=== PATIENT | female | born 1985 | race Caucasian/White ===

== ENCOUNTER 2022-05-26 10:17 | Emergency (ER) | payer OTHER, SELFPAY ==
[2022-05-26 10:24] VITALS: BP 124/96; PULSE 102; RESP 14; TEMP 35.8; O2SAT 98; BMI 43.6
[2022-05-26 10:47] VITALS: RESP 14; O2SAT 98
--- NOTE | 2022-05-26 10:51 | ED.GENADULT ---
HPI - General Adult General Chief complaint: Unspecified Complaint, Adult Stated complaint: 9 wks , needs US Time Seen by Provider: 05/26/22 10:28 Related Data Home Medications Medication Instructions Recorded Confirmed diphenhydramine HCl 50 mg capsule 50 mg PO Q8H PRN 05/26/22 05/26/22 (Unisom SleepGels) ondansetron HCl 4 mg tablet 4 mg PO Q8-12H PRN 05/26/22 05/26/22 prenat.vits,umair,nzo-bnxl-wokyw 1 tab PO DAILY 05/26/22 05/26/22 pyridoxine (vitamin B6) 25 mg 25 mg PO BID 05/26/22 05/26/22 tablet sertraline 150 mg capsule 150 mg PO DAILY 05/26/22 05/26/22 Allergies Allergy/AdvReac Type Severity Reaction Status Date / Time Penicillins Allergy Mild Hives Verified 05/26/22 10:39 Sulfa (Sulfonamide Allergy Mild Hives Verified 05/26/22 10:39 Antibiotics) [facility] Medical History (Updated 05/26/22 @ 10:50 by Janelle Donnelly RN) No significant past medical history Surgical History (Updated 05/26/22 @ 10:50 by Janelle Donnelly RN) History of appendectomy History of appendectomy History of delivery Social History Smoking Status: Never smoker How often do you have a drink containing alcohol: never AUDIT-C Alcohol total score: 0 Non-prescribed substance use: denies use service: No Exam Const: Vital Signs, click to edit/add: Vital Signs - 24 hr 05/26/22 10:24 05/26/22 10:47 Temperature 96.5 F L Pulse Rate [Pulse Oximeter] 102 H Respiratory Rate 14 Respiratory Rate [ Lower Abdomen] 14 Blood Pressure [Le ft Forearm] 124/96 H Pulse Oximetry 98 Course Vital Signs Vital signs: Initial Vital Signs Temperature 96.5 F L 05/26/22 10:24 Temperature Source Temporal Artery Scan 05/26/22 10:24 Pulse Rate 102 H 05/26/22 10:24 Respiratory Rate 14 05/26/22 10:24 Blood Pressure 124/96 H 05/26/22 10:24 Blood Pressure Mean 105 05/26/22 10:24 Blood Pressure Position Sitting 05/26/22 10:24 Pulse Oximetry 98 05/26/22 10:24 Oxygen Delivery Method 05/26/22 10:24 Vital Signs Temperature 96.5 F L 05/26/22 10:24 Pulse Rate 102 H 05/26/22 10:24 Respiratory Rate 14 05/26/22 10:24 Blood Pressure 124/96 H 05/26/22 10:24 Pulse Oximetry 98 05/26/22 10:24 Temperature 96.5 F L 05/26/22 10:24 Pulse Rate 102 H 05/26/22 10:24 Respiratory Rate 14 05/26/22 10:47 Blood Pressure 124/96 H 05/26/22 10:24 Pulse Oximetry 98 05/26/22 10:24 Discharge Plan Discharge Prescriptions: No Action sertraline 150 mg capsule 150 mg PO DAILY 0RF ondansetron HCl 4 mg tablet 4 mg PO Q8-12H PRN0RF pyridoxine (vitamin B6) 25 mg tablet 25 mg PO BID 0RF prenat.vits,umair,spa-mmyn-nvavj Tablet 1 tab PO DAILY 0RF diphenhydramine HCl [Unisom SleepGels] 50 mg capsule 50 mg PO Q8H PRN0RF Follow Up/Referrals: Clau Mcneill MD [Primary Care Provider] -
--- NOTE | 2022-05-26 11:19 | CRLHL7_ITS ---
For Patients: As a result of the Century Cures Act, medical imaging exams and procedure reports are released immediately into your electronic medical record. You may view this report before your referring provider. If you have questions, please contact your health care provider. Indication: Pain. Technique: Sonography of the gravid uterus was performed. The examination was performed transabdominally and transvaginally. Comparison: There are no prior studies for comparison. Findings: There is a single living intrauterine . heart rate is 176 beats per minute which is normal. The crown rump length measurement is 2.3 centimeters which corresponds to 9 weeks and 0 days. The ultrasound estimated date of delivery is 12/29/2022. The gestational sac size averages 3.4 centimeters. A normal appearing yolk sac is identified. The ovaries appear normal. There is a probable corpus luteum cyst of in the right ovary. The right ovary is difficult to measure due to position. The left ovary measures 2.6 x 1.4 x 1.6 centimeters. The patient indicated an area of pain in the anterior abdominal wall in the region of a scar towards the left. Sonography of this area reveals a small cutaneous to subcutaneous collection measuring 1.9 x 0.5 x 2.1 centimeters. This could be a hematoma, seroma or infected collection. Correlate clinically. Impression: 1. Single live intrauterine gestation of 9 weeks and 0 days. Normal heart rate. No specific visible complication by sonography. 2. The patient indicated an area of pain in the skin the anterior left abdominal wall adjacent to the scar which was scanned. There is a small fluid collection in this area measuring 1.9 x 0.5 x 2.1 centimeters which could represent hematoma, seroma or infected collection. Correlate clinically. Dictated by Deonte Garcia MD @ 05/26/2022 1:03:17 PM (Electronically Signed)
--- NOTE | 2022-05-26 11:35 | ED_ITS ---
HPI - General Adult General Time Seen by Provider: 11:00 Date Seen: 05/26/22 Chief complaint: Unspecified Complaint, Adult Stated complaint: 9 wks , needs US Time Seen by Provider: 05/26/22 10:28 Source: patient History of Present Illness HPI narrative: This 36-year-old female is 9 weeks and comes in reporting some cramping. She does not have any vaginal bleeding or discharge. She also report s some redness and tenderness on the left side of her wound that was done 18 months ago. She does not report any fevers. She did have an ultrasound of this last week with normal results. Related Data Home Medications Medication Instructions Recorded Confirmed diphenhydramine HCl 50 mg capsule 50 mg PO Q8H PRN 05/26/22 05/26/22 (Unisom SleepGels) ondansetron HCl 4 mg tablet 4 mg PO Q8-12H PRN 05/26/22 05/26/22 prenat.vits,umair,ycl-kbgw-pqtla 1 tab PO DAILY 05/26/22 05/26/22 pyridoxine (vitamin B6) 25 mg 25 mg PO BID 05/26/22 05/26/22 tablet sertraline 150 mg capsule 150 mg PO DAILY 05/26/22 05/26/22 Previous Rx's Medication Instructions Recorded cephalexin 500 mg capsule 500 mg PO TID #20 cap 05/26/22 Allergies Allergy/AdvReac Type Severity Reaction Status Date / Time Penicillins Allergy Mild Hives Verified 05/26/22 10:39 Sulfa (Sulfonamide Allergy Mild Hives Verified 05/26/22 10:39 Antibiotics) Review of Systems Status of ROS: Reports: 10 or more systems reviewed and unremarkable except as noted in History and below Narrative: Constitutional: No fevers, no weight gain or loss. Eyes: No discharge. No vision changes. HENT: No congestion, no sore throat, no ear pain. Cardiovascular: No chest pain, no palpitations. Respiratory: No shortness of breath, no wheezes, no cough. Gastrointestinal: No abdominal pain, no vomiting, no diarrhea. Genitourinary: No dysuria, no hematuria. Musculoskeletal: Normal range of motion. Skin: No rashes, no pruritis. Some tenderness with mild redness on the left pole of the old wound. Neurological: No dizziness, weakness, sensory change, speech change. Endo/Heme/Allergies: No bruising or bleeding. No polydipsia. Pysch: no suicidality, no anxiety, no insomnia. All other systems reviewed and are negative. [facility] Medical History Meniscal injury No significant past medical history Surgical History History of appendectomy History of delivery Social History Smoking Status: Never smoker How often do you have a drink containing alcohol: never AUDIT-C Alcohol total score: 0 Non-prescribed substance use: denies use service: No Exam Narrative: Exam Narrative: Constitutional: Well-developed, well-nourished, no acute distress. HEENT: Normocephalic, atraumatic. Neck: Normal range of motion. Nontender. Supple. Heart: Regular. No murmurs. Normal rate. Intact distal pulses. Lungs: Clear to auscultation. No chest discomfort. No wheezes, rhonchi, or rales. Abdomen: Normal bowel sounds. Nontender. No rebound tenderness. Gravid. Genitalia: Deferred. Back: No midline tenderness. Normal range of motion. Extremities: Normal range of motion. No injury. Skin: Intact. No rash. Warm. No pallor. Small area of erythema in the skin fold of the abdomen at the left side of her surgical scar from 18 months ago. No palpable abscess. Neurologic: No altered sensation. No weakness. Alert and oriented. Psychiatric: No suicidality. No anxiety or depression. No insomnia. Nursing notes and vitals signs are reviewed. Const: Vital Signs, click to edit/add: Vital Signs - 24 hr 05/26/22 10:24 05/26/22 10:47 Temperature 96.5 F L Pulse Rate [Pulse Oximeter] 102 H Respiratory Rate 14 Respiratory Rate [ Lower Abdomen] 14 Blood Pressure [Le ft Forearm] 124/96 H Pulse Oximetry 98 Course Vital Signs Vital signs: Initial Vital Signs Temperature 96.5 F L 05/26/22 10:24 Temperature Source Temporal Artery Scan 05/26/22 10:24 Pulse Rate 102 H 05/26/22 10:24 Respiratory Rate 14 05/26/22 10:24 Blood Pressure 124/96 H 05/26/22 10:24 Blood Pressure Mean 105 05/26/22 10:24 Blood Pressure Position Sitting 05/26/22 10:24 Pulse Oximetry 98 05/26/22 10:24 Oxygen Delivery Method 05/26/22 10:24 Vital Signs Temperature 96.5 F L 05/26/22 10:24 Pulse Rate 102 H 05/26/22 10:24 Respiratory Rate 14 05/26/22 10:24 Blood Pressure 124/96 H 05/26/22 10:24 Pulse Oximetry 98 05/26/22 10:24 Temperature 96.5 F L 05/26/22 10:24 Pulse Rate 102 H 05/26/22 10:24 Respiratory Rate 14 05/26/22 10:47 Blood Pressure 124/96 H 05/26/22 10:24 Pulse Oximetry 98 05/26/22 10:24 Medical Decision Making Imaging Data ultrasound pelvis: My impression: This patient comes in reporting some abdominal cramping while she is 9 weeks . She does not have any vaginal bleeding or discharge. Ultrasound of the pelvis shows a normal intrauterine at 9 weeks gestation. Additional images were acquired regarding the tenderness she has in her left abdomen where her was done 18 months ago. There is a small collection of fluid that may be a seroma, hematoma, or abscess. There is some tenderness and erythema in the skin overlying this area but I do not palpate this collection of fluid. This is partly due to abdominal obesity. The patient is reassured with the normal findings of intrauterine . I did decide to prescribe Keflex in the event that this is a subcutaneous abscess in her abdomen. Radiologist's impression: 1. Single live intrauterine gestation of 9 weeks and 0 days. Normal heart rate. No specific visible complication by sonography. 2. The patient indicated an area of pain in the skin the anterior left abdominal wall adjacent to the scar which was scanned. There is a small fluid collection in this area measuring 1.9 x 0.5 x 2.1 centimeters which could represent hematoma, seroma or infected collection. Correlate clinically. Discharge Plan Discharge Clinical Impression: Abscess of skin and subcutaneous tissue, Patient Disposition: Home, Self-Care Condition: Stable Instructions: Abscess (ED) Additional Instructions: at 9 weeks gestation. Subcutaneous abscess. Take medication as prescribed. Follow up with MD or return if worsening symptoms happen. Activity Level: Activity as Tolerated Prescriptions: New cephalexin 500 mg capsule 500 mg PO TID Qty: 20 0RF No Action sertraline 150 mg capsule 150 mg PO DAILY 0RF ondansetron HCl 4 mg tablet 4 mg PO Q8-12H PRN0RF pyridoxine (vitamin B6) 25 mg tablet 25 mg PO BID 0RF prenat.vits,umair,odv-zecc-tizgw Tablet 1 tab PO DAILY 0RF diphenhydramine HCl [Unisom SleepGels] 50 mg capsule 50 mg PO Q8H PRN0RF Follow Up/Referrals: Clau Mcneill MD [Primary Care Provider] - Stand Alone Forms: [id number] Info Instructions
[2022-05-26 14:12] VITALS: BP 117/94; PULSE 86; RESP 14
== END 2022-05-26 14:13 | disposition home or self-care (01) ==
PROVIDERS: Emergency Provider Emergency Medicine Emergency Medical Services; PCP Family Medicine
DX: L02.91 Cutaneous abscess, unspecified (principal); L08.9 Local infection of the skin and subcutaneous tissue, unspecified; Z3A.09 9 weeks gestation of pregnancy
CPT/HCPCS: 76801; 76817; 99283; 99284; 99285

== ENCOUNTER 2022-07-13 06:58 | Day surgery (SDC) | payer OTHER, SELFPAY ==
[2022-07-13] VITALS (10 sets, daily range): BP systolic 114–141; BP diastolic 64–93; PULSE 90–106; RESP 16–20; TEMP 36–36.8; O2SAT 95–99; BMI 44.9
--- NOTE | 2022-07-13 07:15 | ED.GENADULT ---
HPI - General Adult General Time Seen by Provider: 07:15 Date Seen: 07/13/22 Chief complaint: Vaginal Bleeding Stated complaint: miscarried,bleeding Time Seen by Provider: 07/13/22 07:10 Source: patient and family Mode of arrival: ambulatory Limitations: no limitations History of Present Illness HPI narrative: 32-year-old male 001 at approximately 16 weeks who presents today with miscarriage. Patient found out earlier this week that she had a nonviable and was scheduled for D and C this morning. About 530 this morning she felt a ?pop? insert having bleeding. She passed some tissue. She has continued to have bleeding and low abdominal pain. She denies chest pain or shortness of breath. Some lightheadedness. Denies fevers or chills. Related Data Home Medications Medication Instructions Recorded Confirmed diphenhydramine HCl 50 mg capsule 50 mg PO Q8H PRN 05/26/22 07/11/22 (Unisom SleepGels) ondansetron HCl 4 mg tablet 4 mg PO Q8-12H PRN 05/26/22 07/11/22 prenat.vits,umair,xep-myez-mrvwl 1 tab PO DAILY 05/26/22 07/11/22 sertraline 150 mg capsule 150 mg PO DAILY 05/26/22 07/11/22 Previous Rx's Medication Instructions Recorded misoprostol 200 mcg tablet 200 mcg vaginal ONCE #1 tab 07/11/22 Allergies Allergy/AdvReac Type Severity Reaction Status Date / Time Penicillins Allergy Mild Hives Verified 07/11/22 14:13 Sulfa (Sulfonamide Allergy Mild Hives Verified 07/11/22 14:13 Antibiotics) Review of Systems Status of ROS: Reports: 10 or more systems reviewed and unremarkable except as noted in History and below [facility] Medical History (Updated 07/13/22 @ 07:42 by Holger Davies MD) Meniscal injury Miscarriage No significant past medical history Surgical History (Updated 07/12/22 @ 09:03 by Magdy Moore RN) History of appendectomy History of delivery History of repair of anterior cruciate ligament Social History Smoking Status: Never smoker How often do you have a drink containing alcohol: never AUDIT-C Alcohol total score: 0 Non-prescribed substance use: denies use service: No Exam Const: Vital Signs, click to edit/add: Vital Signs - 24 hr 07/13/22 07:10 Temperature 96.9 F L Pulse Rate [Right Pulse Oximeter] 90 Respiratory Rate 20 Blood Pressure [Ri ght Upper Arm] 141/64 H Pulse Oximetry 98 Oxygen Delivery Me thod Room Air Documenting provider has reviewed patient's vital signs: yes Common normals: no apparent distress, oriented x3, alert and well nourished HENMT: Common normals: normocephalic, head/scalp atraumatic, external ears normal and external nose normal Head and scalp: normocephalic and atraumatic Nose: external nose normal External ear: external ears normal Eye: Common normals: PERRL and conjunctivae normal Conjunctiva: conjunctiva(e) normal Pupil: PERRL Neck & C-Spine: Common normals: full ROM, no lymphadenopathy and supple Chest: Common normals: palpation of chest normal Resp: Common normals: normal respiratory effort and clear to auscultation bilaterally Auscultation: clear to auscultation bilaterally Cardio: Common normals: regular rate, regular rhythm and no murmurs Rate: regular rate Rhythm: regular rhythm GI: Common normals: Normal to inspection, nondistended, normoactive bowel sounds present, soft to palpation and non-tender Palpation: soft : Common normals: no CVA tenderness Bladder/kidney exam: no CVA tenderness Back & Pelvis: Common normals: no CVA tenderness and thoracic and lumbar spine normal to inspection Extremity: Common normals: normal to inspection, full ROM and no pedal edema Neuro: Common normals: oriented x3, CN's II-XII intact bilaterally and no focal motor deficits Sensorium/orientation: alert Psych: Common normals: mental status grossly normal Skin: Common normals: no rashes or lesions noted General skin exam: no rashes or lesions noted Course Course Hospital Course: Patient seen and examined, prior records are reviewed. Patient with known nonviable and miscarriage this morning. Continued bleeding. Pelvic ultrasound will be ordered to evaluate for retained products of conception, labs and IV fluids initiated. Reevaluation(s) Reevaluation #1: Discussed ultrasound with client technical professional, patient likely does have retained products of conception. Will contact Ob. Time: 07:41 Reevaluation #2: Patient is vitally stable, hemoglobin is reassuring. Disposition per sleeve tailor, patient will be going to same to surgery for suction curettage. Time: 07:51 Vital Signs Vital signs: Initial Vital Signs Temperature 96.9 F L 07/13/22 07:10 Temperature Source Temporal Artery Scan 07/13/22 07:10 Pulse Rate 90 07/13/22 07:10 Respiratory Rate 20 07/13/22 07:10 Blood Pressure 141/64 H 07/13/22 07:10 Blood Pressure Mean 89 07/13/22 07:10 Blood Pressure Position Sitting 07/13/22 07:10 Pulse Oximetry 98 07/13/22 07:10 Oxygen Delivery Method 07/13/22 07:10 Vital Signs Temperature 96.9 F L 07/13/22 07:10 Pulse Rate 90 07/13/22 07:10 Respiratory Rate 20 07/13/22 07:10 Blood Pressure 141/64 H 07/13/22 07:10 Pulse Oximetry 98 07/13/22 07:10 Oxygen Delivery Method 07/13/22 07:10 Temperature 96.9 F L 07/13/22 07:10 Pulse Rate 90 07/13/22 07:10 Respiratory Rate 20 07/13/22 07:10 Blood Pressure 141/64 H 07/13/22 07:10 Pulse Oximetry 98 07/13/22 07:10 Oxygen Delivery Method 07/13/22 07:10 Medical Decision Making Medical Records Medical records reviewed: Yes I reviewed the patient's medical records Lab Data Lab results reviewed: Yes I reviewed the patient's lab results Labs: Lab Results 07/13/22 Range/Units 07:30 WBC 9.30 (4.50-11.00) K/uL RBC 4.61 (4.00-5.20) m/uL Hgb 12.9 (12.0-16.0) gm/dL Hct 39.6 (33.0-51.0) % MCV 86 (80-100) fL MCH 28 (26-34) pg MCHC 33 (32-36) gm/dL RDW Coeff of Precious 13.2 (11.5-15.5) % Plt Count 235 (140-440) K/uL Neut % (Auto) 75.7 H (42.0-72.0) % Lymph % (Auto) 18.3 L (20-44) % [place] % (Auto) 4.5 (0.0-11.0) % Eos % (Auto) 1.2 (0.0-7.0) % Baso % (Auto) 0.2 (0.0-3.0) % Neut # (Auto) 7.00 (1.7-7.0) K/uL Lymph # (Auto) 1.70 (0.90-2.90) K/uL [place] # (Auto) 0.40 (0.00-0.90) K/UL Eos # (Auto) 0.11 (0.00-0.50) K/uL Baso # (Auto) 0.02 (0.00-0.30) K/uL Abs Immat Gran (auto) 0.01 (0.00-0.30) K/uL Discharge Plan Discharge Clinical Impression: Retained products of conception after miscarriage, Incomplete miscarriage Prescriptions: No Action misoprostol 200 mcg tablet 200 mcg vaginal ONCE Qty: 1 0RF sertraline 150 mg capsule 150 mg PO DAILY ondansetron HCl 4 mg tablet 4 mg PO Q8-12H PRN prenat.vits,umair,dfe-duoz-mduug Tablet 1 tab PO DAILY diphenhydramine HCl [Unisom SleepGels] 50 mg capsule 50 mg PO Q8H PRN Follow Up/Referrals: Clau Mcneill MD [Primary Care Provider] -
--- NOTE | 2022-07-13 07:17 | CRLHL7_ITS ---
For Patients: As a result of the Cures Act, medical imaging exams and procedure reports are released immediately into your electronic medical record. You may view this report before your referring provider. If you have questions, please contact your health care provider. Indication: Vaginal bleeding. Recent miscarriage. Assess for retained products of conception. Technique: Sonography was performed transabdominally. Grayscale and Doppler imaging was obtained Comparison: None Findings: Heterogeneous thickening of the endometrium especially anteriorly. Most of this is vascularized suggesting that this is retained products of conception. Fluid and non vascularized areas within the endometrium likely hemorrhage/clot. Impression: Findings likely related to retained products of conception. Dictated by Deonte Garcia MD @ 07/13/2022 8:06:19 AM (Electronically Signed)
[2022-07-13 07:43] LABS: Basophils Absolute Auto 0.02 K/uL (0.00-0.30); Basophils Percent Auto 0.2 % (0.0-3.0); Eosinophils Absolute Auto 0.11 K/uL (0.00-0.50); Eosinophils Percent Auto 1.2 % (0.0-7.0); Hematocrit 39.6 % (33.0-51.0); Hemoglobin* 12.9 gm/dL (12.0-16.0); Immature Granulocytes Abs Auto 0.01 K/uL (0.00-0.30); Lymphocytes Percent Auto 18.3 % (20-44); Mean Corpuscular HGB Conc 33 gm/dL (32-36); Mean Corpuscular Hemoglobin 28 pg (26-34); Mean Corpuscular Volume 86 fL (80-100); Monocytes Percent Auto 4.5 % (0.0-11.0); Neutrophils Percent Auto 75.7 % (42.0-72.0); Platelet Count* 235 K/uL (140-440); RDW Coefficient of Variation % 13.2 % (11.5-15.5); Red Blood Count 4.61 m/uL (4.00-5.20)
--- OUTSIDE RECORDS SUMMARY | 2022-07-13 07:48 | XMS_ITS | Encounter Summary ---
:1985 Author Organization [place] Address [address] [place] [address] Care Team Providers Name Role Phone No Ref-Primary, Physician Primary Care Provider Ivelisse Melgar PA-C Unavailable [phone] Lashawn Urias MD Unavailable Ivelisse Melgar PA-C Unavailable [phone] Lashawn Urias MD Unavailable Ivelisse Melgar PA-C Unavailable Evy Danielle BENCH PRESS OPERATOR Primary Care Provider Unavailable Reason for Visit Reason Comments Shoulder Injury follow up from walk-in Encounter Details Date Type Department Care Team Description 07/01/2015 Office Visit - [facility] Evy Danielle, Acute shoulder [facility] BENCH PRESS OPERATOR bursitis, right [place] [address] [place] [address] [phone] Social History Tobacco Use Types Packs/Day Years Used Date Never Smoker Smokeless Tobacco: Never Used Alcohol Use Standard Drinks/Week Comments Yes 0 (1 standard drink = 0.6 oz pure alcoho l) socially Sex Assigned at Date Recorded Not on file documented as of this encounter Last Filed Vital Signs Vital Sign Reading Time Taken Comments Blood Pressure - - Pulse - - Temperature - - Respiratory Rate - - Oxygen Saturation - - Inhaled Oxygen Concentration - - Weight 114.3 kg (252 lb) 07/01/2015 3:41 PM CDT Height 165.1 cm (5' 5) 07/01/2015 3:41 PM CDT Body Mass Index 41.93 07/01/2015 3:41 PM CDT documented in this encounter Progress Notes Evy Danielle CNP - 07/01/2015 3:53 PM CDT Assessment/Plan: 1. Acute shoulder bursitis, right Reviewed MRI that was completed in Walk in [facility] on 06/27/2015, reviewed the results and her already given diagnoses Of subacromial-subdeltoid bursitis. She is still having pain. I did reinforce home supportive care -rest, activity to tolerance, ice/heat - 20 min of and 1 hour on Continue with medications as prescribed NSAIDs. She is wearing a sling today and this helps. She is concerns because she has limited range of motion and It is hard for her to complete her daily tasks. I did place a referral for orthopedics discussed possible injection; I did provide orthoquick hours as well. Follow up with ortho. Discussed with patient to follow up if worsening symptoms, questions or concerns Discussed red flags that would warrant urgent evaluation. Patient verbalized understanding. Discussed following up for fasting physical exam 2-4 weeks, Ileana agreed with plan. - Ambulatory referral to Orthopedics MRI RIGHT SHOULDER 06/27/2015 5:52 PM INDICATION: Right shoulder pain. TECHNIQUE: Routine. COMPARISON: None. FINDINGS: ROTATOR CUFF: Rotator cuff muscle bulk is within normal limits. There is no acute intramuscular edema to suggest muscle strain or denervation edema. The rotator cuff is intact without tendinopathy or tear. Specifically, the subscapularis is intact. ACROMIOCLAVICULAR REGION: Type II acromion. Intact coracoacromial ligament. No subacromial spur. Intact coracoclavicular ligaments. There is fluid in the subacromial-subdeltoid bursa. Acromioclavicularjoint is normal. GLENOHUMERAL JOINT: On this nonarthrographic study, the intra-articular portion of the long head biceps tendon is intact. The labrum appears intact on this nonarthrographic study. No focal glenohumeralchondrosis. There is a physiologic amount of fluid in the shoulder joint. BONES AND SOFT TISSUES: No round or oval marrow replacing bone lesion identified within the bones ofthe right shoulder girdle. The visualized chest wall and axilla is unremarkable. IMPRESSION: CONCLUSION: 1. Minimal right subacromial-subdeltoid bursitis. 2. Intact right rotator cuff. Subjective: Patient ID: Ileana Saul is a 29 y.o. female. HPI Comments: 29 y/o Ileana presents today for walk clinic follow up. She was seen twice in walk in clinic for right shoulder pain last visit was on 06/27/2015. States her injury occurred two weeks ago on 06/17/2015 as she was lifting tables and then experiencedshoulder pain the next day. An MRI was performed on 06/27/2015 and showed bursitis. She is taking muscle relaxer and ibuprofen; which are helping but she states she is still in pain. SHe is wearing a sling and states minimal range of motion and difficult to work. Pain is 6/10 pain, aching and throbbing and radiating to collar bone. She presents today to establish care and follow up on shoulder. Denies fever, chills, bowel/bladder changes. Shoulder Injury The following portions of the patient's history were reviewed and updated as appropriate: allergies,current medications, past family history, past medical history, past social history, past surgical history and problem list. Review of Systems Constitutional: Negative. Respiratory: Negative. Cardiovascular: Negative. Musculoskeletal: Shoulder pain- right Skin: Negative. Neurological: Negative. Psychiatric/Behavioral: Negative. Objective: Physical Exam Constitutional: She is oriented to person, place, and time. She appears well- developed and well-nourished. Eyes: Conjunctivae are normal. Cardiovascular: Normal rate and normal heart sounds. No murmur heard. Pulmonary/Chest: Effort normal and breath sounds normal. Abdominal: Soft. Bowel sounds are normal. Musculoskeletal: She exhibits no edema. Left shoulder normal. Right shoulder without any obvious deformity, limited range of motion with abduction. Neurological: She is alert and oriented to person, place, and time. Pulses WNL Psychiatric: She has a normal mood and affect. Filed Vitals: 07/01/15 1541 BP: 120/86 Pulse: 64 Temp: 98.9 ??F (37.2 ??C) documented in this encounter Plan of Treatment Not on filedocumented as of this encounter Visit Diagnoses Diagnosis Acute shoulder bursitis, right documented in this encounter Care Teams Taper/Finisher Relationship Specialty Start Date End Date No Ref-Primary, Physician PCP - General 01/14/16 Ivelisse Melgar, PCP - Assigned PCP 11/0901/27/19 [facility] [id number] [place], [place] [id number] Lashawn Urias MD PCP - Assigned PCP 11/10/17 11/08/[address] [place] [id number] Evy Danielle CNP PCP - General Family Practice 07/01/1501/13 Ivelisse Melgar, Assigned PCP 11/09/18 02/21/19 PA-C [address] [place] [address] Lashawn Urias MD Assigned PCP 02/22/19 11/12/[address] [place] [address] Ivelisse Melgar, Assigned PCP 11/13/20 02/18/21 PA-C [address] [place] [address] documented as of this encounter
--- OUTSIDE RECORDS SUMMARY | 2022-07-13 07:48 | XMS_ITS | Encounter Summary ---
:1985 Author Organization [place] Address [address] [place] [address] Care Team Providers Name Role Phone No Ref-Primary, Physician Primary Care Provider [phone] Ivelisse Melgar PA-C Unavailable Lashawn Urias MD Unavailable Ivelisse Melgar PA-C Unavailable Lashawn Urias MD Unavailable Ivelisse Melgar PA-C Unavailable [phone] Evy Danielle CNP Primary Care Provider Unavailable Encounter Details Date Type Department Care Team Description 06/27/2015 Records - [facility] MRI Marlene Llanos MD Pain in joint, [address] [facility] T shoulder region [place], [place] [address] (Wo rk) Social History Tobacco Use Types Packs/Day Years Used Date Never Smoker Smokeless Tobacco: Never Used Alcohol Use Standard Drinks/Week Comments Yes 0 (1 standard drink = 0.6 oz pure alcoho l) socially Sex Assigned at Date Recorded Not on file documented as of this encounter Plan of Treatment Not on filedocumented as of this encounter Procedures Procedure Name Priority Date/Time Associated Diagnosis Comme nts MR CERVICAL SPINE Routine 06/27/2015 5:24 PM Pain in joint, Re sults for this W/O CONTRAST CDT shoulder region procedure ar e in the results section. documented in this encounter Results MR Cervical Spine w/o Contrast (06/27/2015 5:24 PM CDT) Anatomical Region Laterality Modality Spine, SUBRAD MR NEURO, UMP MR SPINE, RAD MR Other Specimen (Source) Anatomical Location Collection Method / Collectio n Time Received Time / Laterality Volume Impressions 06/27/2015 6:07 PM CDT CONCLUSION: 1. ??No spinal canal or neural foraminal stenosis. 2. ??Normal cord signal. 3. 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 This is incidental. Findings were communicated to Dr. Llanos at 6:06 PM hours 06/27/2015. Narrative 06/27/2015 6:07 PM CDT [facility] MR CERVICAL SPINE WO CONTRAST 06/27/2015 5:24 PM INDICATION: Right shoulder pain and righ t upper extremity paresthesias. TECHNIQUE: Performed without IV contrast . SEDATION: None. COMPARISON: Cervical spine CT 08/19/2010 FINDINGS: Normal vertebral body heights. Slightly straightened cervical lordosis. Normal coronal alignment. The left C1 lateral mass is developmentally small. 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 This is stable. No craniocervical joint effusion or marrow edema. No abnormal co rd signal. The visualized intracranial contents are grossly normal. Incidental maxillary retention cysts. C2-C3: Normal disc height. No herniation . No facet arthropathy. No spinal canal stenosis. No right neural foraminal stenosis. No left neural foraminal stenosis. C3-C4: Normal disc height. No herniation . No facet arthropathy. No spinal canal stenosis. No right neural foraminal stenosis. No left neural foraminal stenosis. C4-C5: Normal disc height. No herniation . No facet arthropathy. No spinal canal stenosis. No right neural foraminal stenosis. No left neural foraminal stenosis. C5-C6: Normal disc height. No herniation . No facet arthropathy. No spinal canal stenosis. No right neural foraminal stenosis. No left neural foraminal stenosis. C6-C7: Normal disc height. No herniation . No facet arthropathy. No spinal canal stenosis. No right neural foraminal stenosis. No left neural foraminal stenosis. C7-T1: Normal disc height. No herniation . No facet arthropathy. No spinal canal stenosis. No right neural foraminal stenosis. No left neural foraminal stenosis. Procedure Note Ascencion Hidalgo J - 04/30/2021 [facility] MR CERVICAL SPINE WO CONTRAST 06/27/2015 5:24 PM INDICATION: Right shoulder pain and righ t upper extremity paresthesias. TECHNIQUE: Performed without IV contrast . SEDATION: None. COMPARISON: Cervical spine CT 08/19/2010 FINDINGS: Normal vertebral body heights. Slightly straightened cervical lordosis. Normal coronal alignment. The left C1 lateral mass is developmentally small. 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 This is stable. No craniocervical joint effusion or marrow edema. No abnormal co rd signal. The visualized intracranial contents are grossly normal. Incidental maxillary retention cysts. C2-C3: Normal disc height. No herniation . No facet arthropathy. No spinal canal stenosis. No right neural foraminal stenosis. No left neural foraminal stenosis. C3-C4: Normal disc height. No herniation . No facet arthropathy. No spinal canal stenosis. No right neural foraminal stenosis. No left neural foraminal stenosis. C4-C5: Normal disc height. No herniation . No facet arthropathy. No spinal canal stenosis. No right neural foraminal stenosis. No left neural foraminal stenosis. C5-C6: Normal disc height. No herniation . No facet arthropathy. No spinal canal stenosis. No right neural foraminal stenosis. No left neural foraminal stenosis. C6-C7: Normal disc height. No herniation . No facet arthropathy. No spinal canal stenosis. No right neural foraminal stenosis. No left neural foraminal stenosis. C7-T1: Normal disc height. No herniation . No facet arthropathy. No spinal canal stenosis. No right neural foraminal stenosis. No left neural foraminal stenosis. IMPRESSION: CONCLUSION: 1. No spinal canal or neural foraminal s tenosis. 2. Normal cord signal. 3. 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 This is incidental. Findings were communicated to Dr. Llanos at 6:06 PM hours 06/27/2015. Darya Llanos MD IMG MRI ORDERABLES documented in this encounter Visit Diagnoses Diagnosis Pain in joint, shoulder region documented in this encounter Care Teams Glass Enamel Mixer Relationship Specialty Start Date End Date No Ref-Primary, Physician PCP - General 01/14/16 Ivelisse Melgar, PCP - Assigned PCP 11/0901/27/19 PA-C [address] [place], [place] [id number] Lashawn Urias MD PCP - Assigned PCP 11/10/17 11/08/[address] [place] [address] [id number] Evy Danielle CNP PCP - General Family Practice 07/01/1501/13 Ivelisse Melgar, Assigned PCP 11/09/18 02/21/19 PA-C [address] [place] [address] Lashawn Urias MD Assigned PCP 02/22/19 11/12/[address] [place] [address] Ivelisse Melgar, Assigned PCP 11/13/20 02/18/21 PA-C [address] [place] [address] documented as of this encounter
--- OUTSIDE RECORDS SUMMARY | 2022-07-13 07:48 | XMS_ITS | Encounter Summary ---
:1985 Author Organization [place] Address [address] [place] [address] Care Team Providers Name Role Phone No Ref-Primary, Physician Primary Care Provider [phone] Encounter Details Date Type Department Care Team Description [facility] Provider, Histor ical Social History Tobacco Use Types Packs/Day Years Used Date Never Smoker Smokeless Tobacco: Never Used Alcohol Use Standard Drinks/Week Comments Yes 0 (1 standard drink = 0.6 oz pure alcoho l) 2 drinks/month Alcohol Habits Answer Date Recorded How often do you have a drink containing alcohol? Not asked How many drinks containing alcohol do you have on a Not aske d typical day when you are drinking? How often do you have six or more drinks on one Not asked occasion? Comment: 2 drinks/month 11/04/2017 Sex Assigned at Date Recorded Not on file documented as of this encounter Plan of Treatment Not on filedocumented as of this encounter Procedures Procedure Name Priority Date/Time Associated Diagnosis Comme nts CT MISC FCIS ORDER Routine 03/15/2009 12:00 AM Re sults for this CDT procedure are i n the results section. CT MISC FCIS ORDER Routine 03/15/2009 12:00 AM Re sults for this CDT procedure are i n the results section. documented in this encounter Results CT Misc Order (03/15/2009 12:00 AM CDT) Anatomical Region Laterality Modality Computed Tomography Specimen (Source) Anatomical Location Collection Method / Collectio n Time Received Time / Laterality Volume Narrative 03/15/2009 12:00 AM CDT See Historical Hospital Medical Record f or documentation Procedure Note Provider, Historical - 04/25/2021Formatt ing of this note might be different from the original. See Historical Hospital Medical Record f or documentation Historical Provider IMG CT ORDERABLES CT Misc Order (03/15/2009 12:00 AM CDT) Anatomical Region Laterality Modality Computed Tomography Specimen (Source) Anatomical Location Collection Method / Collectio n Time Received Time / Laterality Volume Narrative 03/15/2009 12:00 AM CDT See Historical Hospital Medical Record f or documentation Procedure Note Provider, Historical - 04/25/2021Formatt ing of this note might be different from the original. See Historical Hospital Medical Record f or documentation Historical Provider IMG CT ORDERABLES documented in this encounter Visit Diagnoses Not on filedocumented in this encounter Care Teams Audio Visual Technician Relationship Specialty Start Date End Date No Ref-Primary, Physician PCP - General 01/14/16 documented as of this encounter
--- OUTSIDE RECORDS SUMMARY | 2022-07-13 07:48 | XMS_ITS | Encounter Summary ---
:1985 Author Organization [facility] Address [address] [place] [address] Care Team Providers Name Role Phone No Ref-Primary, Physician Primary Care Provider Ivelisse Melgar PA-C Unavailable Lashawn Urias MD Unavailable Ivelisse Melgar PA-C Unavailable [phone] Lashawn Urias MD Unavailable Ivelisse Melgar PA-C Unavailable Evy Danielle CNP Primary Care Provider Unavailable Reason for Visit Reason Comments Shoulder Pain RIGHT shoulder. Poss injury (1 week ago)--seen here at [facility] for the same thing, meds dont help with p riana. Encounter Details Date Type Department Care Team Description 06/27/2015 Office Visit - [facility] Darya Llanos, Acute shoulder bursitis, right; [facility] Jeanmarie ANNA Acute shoulder pain, right [facility] [id number] [place], [place] [address] [address] [place], [place] [phone] (Work) [phone] Social History Tobacco Use Types Packs/Day Years [...] - Inhaled Oxygen Concentration - - Weight 114.8 kg (253 lb) 06/27/2015 2:06 PM CDT Height - - Body Mass Index 42.43 07/18/2012 10:49 AM CDT documented in this encounter Progress Notes Darya Llanos MD - 06/27/2015 2:35 PM CDT Subjective: Ileana Saul is a 29 y.o. female Chief Complaint Patient presents with ??? Shoulder Pain RIGHT shoulder. Poss injury (1 week ago)--seen here at [facility] for the same thing, meds dont help with pain. From 06/21/2015 the plan per London Aquino was -Rest, activity as tolerated according to pain -Apply heat or ice 2- 3 times daily for 15 -20 min -May take Ibuprofen 800 mg three times daily with food for 3 -5 days and then as needed for pain. -Ultram prescribed for break through pain and flexeril prescribed for muscle tightness. Both will cause drowsiness, so no driving, operating machinery or power tools for 6 hours after taking this medication. -Return to the clinic in 7 - 10 days if symptoms are not improving for re- evaluation or if any worsening in strength or paresthesia Patient returns today stating that the initial injury happened 06/17 when she lifted a table or otherpiece of furniture worn. Says she didn't feel anything until the next day. Says she had extreme painbetween 06/18 and 06/21. Since that visit she says she stayed home 06/22-06/24 and worked from home. On 06/25-06/26 she rested the right arm and put ice on it. 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 Says that even walking and driving make the pain worse. Says neither the tramadol or cyclobenzaprine did anything but put her to sleep. Says today at noon took ibuprofen 200 mg - 4 tabs with cyclobenzaprine 3 hours ago and says has no relief of pain. Rates pain at -8/10. Went to her chiropractor on 06/20 and says that the treatment did not help. She had a back adjustment and some vibration treatment. Was told by chiropractor that it could be a bulging disc. Says most of the pain is in her right shoulder, her collarbone, up to her right jaw ans down her arm, and up the right side of back ofneck and head. Says she does not have a regular doctor. Says it hurts to lift her arm more than a little. She is left handed, but she only writes and eats with her left hand, everything else is with her right hand. Most concerned about work and school. Saysit hurts to lift anything, even a glass of water. Admits numbing/tingling feeling in her hand. Review of Systems MS - Neuro - see HPI Allergies Reviewed Medications Reviewed Problem List Reviewed Objective: BP 122/92 Pulse 92 Temp(Src) 98 ??F (36.7 ??C) (Oral) Resp 20 Wt 253 lb (114.76 kg) SpO2 99% Gen- Pt looks anxious, but not in distress Neck-no swelling or deformity - full range of motion Left shoulder-no swelling or deformity, full range of motion Right shoulder-no swelling or deformity; abduction to 60?? full abduction, flexion to 90?? full extension, limited external rotation but full internal rotation Mr Cervical Spine Without Contrast 06/27/2015 [facility] MR CERVICAL SPINE WO CONTRAST 06/27/2015 5:24 PM INDICATION: Right shoulder pain and right upper extremity paresthesias. TECHNIQUE: Performed without IV contrast. SEDATION: None. COMPARISON: Cervical spine CT 08/19/2010 FINDINGS: Normal vertebral body heights. Slightly stra ightened cervical lordosis. Normal coronal alignment. The left C1 lateral mass is developmentally small. 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 This is stable. No craniocervical joint effusionor marrow edema. No abnormal cord signal. The visualized intracranial contents are grossly normal. Incidental maxillary retention cysts. C2-C3: Normal disc height. No herniation. No facet arthropathy. No spinal canal stenosis. No right neural foraminal stenosis. No left neural foraminal stenosis. C3-C4: Normal disc height. No herniation. No facet arthropathy. No spinal canal stenosis. No right neuralforaminal stenosis. No left neural foraminal stenosis. C4-C5: Normal disc height. No herniation. No facet arthropathy. No spinal canal stenosis. No right neural foraminal stenosis. No left neural foraminal stenosis. C5-C6: Normal disc height. No herniation. No facet arthropathy. No spinal canal stenosis. No right neural foraminal stenosis. No left neural foraminal stenosis. C6-C7: Normal disc height.No herniation. No facet arthropathy. No spinal canal stenosis. No right neural foraminal stenosis. No left neural foraminal stenosis. C7-T1: Normal disc height. No herniation. No facet arthropathy. No spinal canal stenosis. No right neural foraminal stenosis. No left neural foraminal stenosis. 06/27/2015 CONCLUSION: 1. No spinal canal or neural foraminal stenosis. 2. Normal cord signal. 3. 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 This is incidental. Findings were communicated to Dr. Llanos at 6:06 PM hours 06/27/2015. Mr Shoulder Without Contrast Right 06/27/2015 MRI RIGHT SHOULDER 06/27/2015 5:52 PM INDICATION: Right shoulder pain. TECHNIQUE: Routine. COMPARISON: None. FINDINGS: ROTATOR CUFF: Rotator cuff muscle bulk is within normal limits. There is noacute intramuscular edema to suggest muscle strain or denervation edema. The rotator cuff is intact without tendinopathy or tear. Specifically, the subscapularis is intact. ACROMIOCLAVICULAR REGION: Type II acromion. Intact coracoacromial ligament. No subacromial spur. Intact coracoclavicular ligaments. There is fluid in the subacromial-subdeltoid bursa. Acromioclavicular joint is normal. GLENOHUMERAL JOINT: On this nonarthrographic study, the intra-articular portion of the long head biceps tendon is intact. The labrum appears intact on this nonarthrographic study. No focal glenohumeral chondrosis.There is a physiologic amount of fluid in the shoulder joint. BONES AND SOFT TISSUES: No round or oval marrow replacing bone lesion identified within the bones of the right shoulder girdle. The visualized chest wall and axilla is unremarkable. 06/27/2015 CONCLUSION: 1. Minimal right subacromial-subdeltoid bursitis. 2. Intact right rotator cuff. Discussed the radiographic finding with patient while she was till at the imaging center in [place] Assessment - Plan 1. Acute shoulder bursitis, right We'll patient was then still at the imaging center we discussed that she did not have any bulging disc and also she had a completely normal rotator cuff. Also discussed conservative treatment for shoulder bursitis. Patient requested a sling to be able to use at work. Patient therefore came back to [facility] walk-in for her sling and will follow-up with primary on 07/01/2015. Also gave patient written patient information from Up-to-Date on bursitis. - Slings 2. Acute shoulder pain, right - MR Shoulder Without Contrast Right; Future - MR Cervical Spine Without Contrast; Future - methocarbamol (ROBAXIN) 750 MG tablet; Take 1-2 tablets (750-1,500 mg total) by mouth 3 (three) times a day as needed (pain or muscle spasm). Dispense: 40 tablet; Refill: 0 Patient Instructions 1. Wait for call from the imaging office about your MRI results before leaving the facility today. 2. Follow up within the next 7 days with one of the primary care doctors, not the [facility]. 3. If pain worsens, go to one of the hospital emergency departments 4. Call clinic with any questions documented in this encounter Plan of Treatment Not on filedocumented as of this encounter Visit Diagnoses Diagnosis Acute shoulder bursitis, right Acute shoulder pain, right documented in this encounter Care Teams Water Pollution Control Inspector Relationship Specialty Start Date End Date No Ref-Primary, Physician PCP - General 01/14/16 Ivelisse Melgar, PCP - Assigned PCP 11/0901/27/19 [address] [address] [place] [address] Lashawn Urias MD PCP - Assigned PCP 11/10/17 11/08/[address] [place] [address] Evy Danielle, TAXATION AGENT PCP - General Family Practice 07/01/1501/13 Ivelisse Melgar, Assigned PCP 11/09/18 02/21/19 [address] [address] [place], [place] [id number] Lashawn Urias MD Assigned PCP 02/22/19 11/12/[address] [place] [address] Ivelisse Melgar, Assigned PCP 11/13/20 02/18/21 [address] [address] [place] [address] documented as of this encounter
--- OUTSIDE RECORDS SUMMARY | 2022-07-13 07:48 | XMS_ITS | Encounter Summary ---
:1985 Author Organization [facility] Address [address] [place] [address] Care Team Providers Name Role Phone No Ref-Primary, Physician Primary Care Provider Ivelisse Melgar PA-C Unavailable Lashawn Urias MD Unavailable Ivelisse Melgar PA-C Unavailable [phone] Lashawn Urias MD Unavailable Ivelisse Melgar PA-C Unavailable Evy Danielle CNP Primary Care Provider Unavailable Encounter Details Date Type Department Care Team Description 07/01/2015 Records - [facility] CONVERSION Provider, Historica l Social History Tobacco Use Types Packs/Day Years Used Date Never Smoker Smokeless Tobacco: Never Used Alcohol Use Standard Drinks/Week Comments Yes 0 (1 standard drink = 0.6 oz pure alcoho l) socially Sex Assigned at Date Recorded Not on file documented as of this encounter Plan of Treatment Not on filedocumented as of this encounter Visit Diagnoses Not on filedocumented in this encounter Care Teams Director Asset Relationship Specialty Start Date End Date No Ref-Primary, Physician PCP - General 01/14/16 Ivelisse Melgar, PCP - Assigned PCP 11/0901/27/19 [address] [address] [place] [address] Lashawn Urias MD PCP - Assigned PCP 11/10/17 11/08/[address] [place] [id number] Evy Danielle CNP PCP - General Family Practice 07/01/1501/13 Ivelisse Melgar, Assigned PCP 11/09/18 02/21/19 [address] [address] [place] [address] Lashawn Urias MD Assigned PCP 02/22/19 11/12/[address] [place] [id number] Ivelisse Melgar, Assigned PCP 11/13/20 02/18/21 [address] [address] [place] [address] documented as of this encounter
--- OUTSIDE RECORDS SUMMARY | 2022-07-13 07:48 | XMS_ITS | Encounter Summary ---
:1985 Author Organization [facility] Address [address] [place] [address] Care Team Providers Name Role Phone No Ref-Primary, Physician Primary Care Provider [phone] Lashawn Urias MD Unavailable Reason for Visit Reason Onset Date Comments Call Back 11/11/2017 call back Encounter Details Date Type Department Care Team Description 11/11/2017 Telephone [facility] Lashawn Urias, Call Back (call back) Clinic [place] [address] [address] [phone] Social History Tobacco Use Types Packs/Day Years [...] on file documented as of this encounter Miscellaneous Notes Telephone Encounter - César Msua - 11/11/2017 3:25 PM CST She has a lot of pain at the area of ulcer and would like to know what to do for the blister. Discussed with Dr Urias, prescriptions pain medications are not recommended. She can take tylenol or ibuprofen for pain and need to remember to stop ibuprofen at least a week before surgery. Blister is a complication of the ulcer and nothing to do for that. Pt advised. LAYING FITTER Telephone Encounter - Lashawn Urias MD - 11/11/2017 2:24 PM CST Unfortunately there is not much else to do at this time. No topical or oral therapies will help expedite healing. Also her condition (sacral decubitus ulcer stage 1) does not yet warrant wound care. This condition simply takes time to heal. She should continue to not place pressure on that area and keep area clean and dry. LAYING FITTER Telephone Encounter - Shira Sofia RN ([place]) - 11/11/2017 2:19 PM PIPELAYING FITTER Reports today a blister formed at sacral region. No open areas but c/o discomfort/pain. Has been laying on stomach and sides and following recommendations from office visit. Patient wondering what elseshe can do or be prescribed? Please advise. LAYING FITTER Telephone Encounter - Rima Vargas - 11/11/2017 2:04 PM CST Reason for Call: Other call back Detailed comments: pt saw dr urias on 11/08/17 for tailbone/back pain and now she developed a blisterand its been very painful, pt said that she has not been sitting on the tail bone but does not know what else to do. Please call pt back ROBERT. Phone Number Patient can be reached at: Home number on file [phone] (home) Best Time: anytime Can we leave a detailed message on this number? YES Call taken on 11/11/2017 at 2:04 PM by RIMA VARGAS LAYING FITTER documented in this encounter Plan of Treatment Not on filedocumented as of this encounter Visit Diagnoses Not on filedocumented in this encounter Care Teams Mailing Machine Assistant Relationship Specialty Start Date End Date No Ref-Primary, Physician PCP - General 01/14/16 Lashawn Urias MD PCP - Assigned PCP 11/10/17 11/08/18 [address] [place] [id number] documented as of this encounter
--- OUTSIDE RECORDS SUMMARY | 2022-07-13 07:48 | XMS_ITS | Clinical Summary ---
:1985 Author Organization [facility] Address [address] [place] [address] Care Team Providers Name Role Phone No Ref-Primary, Physician Primary Care Provider Allergies Active Allergy Reactions Severity Noted Date Comments Hydrocodone Nausea and Vomiting 11/04/2017 Penicillins Rash Low 07/18/2012 Sulfa Drugs Rash Low 07/18/2012 Medications Medication Sig Dispensed Refills Start Date End Date Status NORTRIPTYLINE HCL PO Take 10 mg by 0 Active mouth At Bedtime lidocaine, viscous, Take 15 mLs by 100 mL 1 02/18/2018 Active (XYLOCAINE) 2 % mouth every 4 solutionIndications: hours as needed Throat pain for moderate pain swish and spit as needed; max 8 doses/24 hour period Active Problems Problem Noted Date Morbid obesity Stomach disorder Overview: NOS; uses nortriptyline daily with relie f Immunizations Name Administration Dates Next Due Influenza Vaccine IM > 6 months Valent IIV4 11/04/2017 (Alfuria,Fluzone) TDAP Vaccine (Adacel) 11/04/2017 Family History Medical History Relation Comments Coronary Artery Disease Father s/p CABG later i n life Diabetes Father Diabetes Type 2 Father Heart Disease Father Breast Cancer Maternal Aunt Lung Cancer Maternal Grandfather smoker Breast Cancer Mother Cancer Mother skin cancer Multiple Sclerosis Mother Skin Cancer Mother unknown type Coronary Artery Disease Paternal Uncle 3 uncles; s/p CA BG, PCI, and ME, all later in lif e Multiple Sclerosis Sister 1 Thyroid Disease Sister 2 Colon Cancer No family hx of Coronary Artery Disease Early No family hx of Onset Ovarian Cancer No family hx of Relation Status Comments Father Alive Maternal Aunt Maternal Grandfather Mother Alive Paternal Uncle Sister 1 Sister 2 Social History Tobacco Use Types Packs/Day Years [...] Assigned at Date Recorded Not on file Last Filed Vital Signs Vital Sign Reading Time Taken Comments Blood Pressure 126/88 02/18/2018 12:56 PM CDT Pulse 110 02/18/2018 12:56 PM CDT Temperature 37.1 ??C (98.7 ??F) 02/18/2018 12:56 PM CDT Respiratory Rate 16 02/18/2018 12:56 PM CDT Oxygen Saturation 97% 02/18/2018 12:56 PM CDT Inhaled Oxygen Concentration - - Weight 120.7 kg (266 lb) 02/18/2018 12:56 PM CDT Height 165.1 cm (5' 5) 11/13/2017 11:21 AM COLLECTION ADVISOR Body Mass Index 44.26 11/13/2017 11:21 AM COLLECTION ADVISOR Plan of Treatment Not on file Insurance Payer Benefit Plan / Subscriber ID Effective Dates Phone Addre ss Type Group MEDICA MEDICA CHOICE [id number] 2016-Present [phone] [address] [address] Indemnity 2 [place] [address] Care Teams Customer Retention Representative Relationship Specialty Start Date End Date No Ref-Primary, Physician PCP - General 01/14/16
--- OUTSIDE RECORDS SUMMARY | 2022-07-13 07:48 | XMS_ITS | Encounter Summary ---
:1985 Author Organization [place] Address [facility] [place] [address] Care Team Providers Name Role Phone No Ref-Primary, Physician Primary Care Provider [phone] Reason for Visit Reason Comments Hyperemesis 10-12 times since 0800, does not have nausea meds at home. aprx 6 weeks , has not started pr enatal care. Encounter Details Date Type Department Care Team Description 01/14/2016 [facility] Sarbjit Baker MD Hyperemesis gravidarum [facility] Emergency [facility] [place] [address] [facility] [address] [address] [place] [address] [place] [address] [phone] Social History Tobacco Use Types Packs/Day Years Used Date Never Smoker Smokeless Tobacco: Never Used Alcohol Use Standard Drinks/Week Comments No 0 (1 standard drink = 0.6 oz pure alcoho l) Sex Assigned at Date Recorded Not on file documented as of this encounter Last Filed Vital Signs Vital Sign Reading Time Taken Comments Blood Pressure 137/80 01/14/2016 4:56 PM MECHANICAL DETAILER Pulse 95 01/14/2016 4:56 PM MECHANICAL DETAILER Temperature 36.9 ??C (98.5 ??F) 01/14/2016 4:56 PM MECHANICAL DETAILER Respiratory Rate 20 01/14/2016 4:56 PM MECHANICAL DETAILER Oxygen Saturation 98% 01/14/2016 4:56 PM MECHANICAL DETAILER Inhaled Oxygen Concentration - - Weight 99.8 kg (220 lb) 01/14/2016 4:56 PM MECHANICAL DETAILER Height 165.1 cm (5' 5) 01/14/2016 4:56 PM MECHANICAL DETAILER Body Mass Index 36.61 01/14/2016 4:56 PM MECHANICAL DETAILER documented in this encounter Discharge Instructions Discharge InstructionsSarbjit Baker MD - 01/14/2016 8:29 PM CST Images from the original note were not included. Hyperemesis Of Hyperemesis of is a severe form of morning sickness, where the vomiting is excessive andmay cause dehydration and chemical imbalances in the body. It occurs in about 1% of pregnancies, andis usually worse during the 10- 12th week of . It gets better by the 16th week. Its cause isnot well understood, but may be related to rising hormone levels early in the . It can be aserious threat to mother and fetus if dehydration becomes severe. Therefore, follow the advice belowcarefully. If symptoms are severe and not controlled by home measures, intravenous fluids and admission to the hospital may be needed. Home Care: 1) Activity a. After awakening from sleep, remain in bed for 15 minutes before getting up. 2) Diet a. Eat frequent small meals rather than 3 large meals. b. A diet high in carbohydrates (starches) and fiber is best. Avoid greasy or spicy foods. c. If you are having trouble keeping down solid foods, drink frequent, small amounts of liquids withelectrolytes, such as broth or sports drinks. If nausea and vomiting continue, rest your stomach by waiting 1-2 hours before trying to drink again. d. Keep a log of the foods you eat and how they affect your symptoms. Avoid foods that trigger your symptoms. e. Keep Saltine crackers at the bedside. If you are nauseated upon awakening, eat some crackers or dry toast before getting out of bed. 3) Medicine a. In general, it is best to avoid strong medicines during , especially during the first three months. The effect on the growing baby is not always known and these could cause harm. Your doctor will recommend a prescription medicine only when the symptoms you are having (vomiting and dehydration) are more dangerous to the baby than the small risk of using the medicine. b. Taking Vitamin B6 (pyridoxine), 10-25 mg daily is safe and may be helpful to reduce nausea. c. Check with your doctor before taking any other [id number] or herbal medicines during your . Follow Up: With your doctor within the next few days or as instructed by this facility. Get Prompt Medical Attention if any of the following occur: -- Unable to keep any clear liquids down over a six-hour period -- Worsening weakness, dizziness or fainting occurs -- No weight gain over a two-week period -- Severe constant lower right abdominal pain -- Fever, chills or frequent diarrhea ?? 1991-3463 [employer]. [address] [place] [address]. All rights reserved. This information is not intended as a substitute for professional medical care. Always follow your healthcare professional's instructions. ANICAL DETAILER documented in this encounter Medications at Time of Discharge Medication Sig Dispensed Refills Start Date End Date ondansetron (ZOFRAN ODT) 4 Take 1 tablet (4 10 tablet 0 01/17/2016 MG disintegrating tablet mg) by mouth every 8 hours as needed for nausea metoclopramide (REGLAN) 5 Take 1 tablet (5 30 tablet 0 12/2711/04/2017 MG tablet mg) by mouth 4 times daily as needed NO ACTIVE MEDICATIONS 0 09/2017 documented as of this encounter ED Notes Sarbjit Baker MD - 01/14/2016 5:35 PM CST History Chief Complaint: Hyperemesis SATYA Saul is a 30 year old female who presents to the ED for evaluation of hyperemesis. The patient is approximately 5 to 6 weeks and this is her first . She has been experiencing slight cramping with her . The patient states she has been vomiting for the past 4 days along with nausea. She is not able to keep anything down and has not taken any medication. She states she vomited about 10 to 12 times since 0800 today. The patient reports having a cold that began yesterday causing nasal congestion. She has a scheduled appointment with an OBGYN on Saturday (01/17/16). The patient denies any health problems, sore throat, recent travel, or taking antibiotics recently. Allergies: Penicillins, rash Sulfa drugs, rash Medications: The patient is not currently on any daily medications. Past Medical History: History reviewed. No pertinent past medical history. Past Surgical History: History reviewed. No pertinent past surgical history. Family / Social History: No family history on file. Marital Status: Single [1] Never smoker. Negative for alcohol use. Review of Systems HENT: Positive for congestion. Negative for sore throat. Gastrointestinal: Positive for nausea and vomiting. All other systems reviewed and are negative. Physical Exam First Vitals: BP: 137/80 mmHg Pulse: 95 Temp: 98.5 ??F (36.9 ??C) Resp: 20 Height: 165.1 cm (5' 5) Weight: 99.791 kg (220 lb) SpO2: 98 % Physical Exam GENERAL: well developed, pleasant HEAD: atraumatic EYES: pupils reactive, extraocular muscles intact, conjunctivae normal ENT: mucus membranes moist NECK: trachea midline, normal range of motion RESPIRATORY: no tachypnea, breath sounds clear to auscultation CVS: normal S1/S2, no murmurs, intact distal pulses ABDOMEN: soft, nontender, nondistention MUSCULOSKELETAL: no deformities SKIN: warm and dry, no acute rashes or ulceration NEURO: GCS 15, cranial nerves intact, alert and oriented x3 PSYCH: Mood/affect normal Emergency Department Course Laboratory: CBC: WBC 10.7, HGB 13.9, PLT 257 BMP: BUN 6(L), o/w WNL (Creat 0.60) UA: clear, yellow urine, Urineketon 80, o/w negative Interventions: 1834 NS 2000ml IV 1850 Benadryl 25mg IV Emergency Department Course: Nursing notes and vitals reviewed. I performed an exam of the patient as documented above. Blood drawn. This was sent to the lab for further testing, results above. The patient provided a urine sample here in the emergency department. This was sent for laboratory testing, findings above. 190 I reevaluated the patient and provided an update in regards to her ED course. Findings and plan explained to the Patient. Patient discharged home with instructions regarding supportive care, medications, and reasons to return. The importance of close follow-up was reviewed. New Prescriptions METOCLOPRAMIDE (REGLAN) 5 MG TABLET Take 1 tablet (5 mg) by mouth 4 times daily as needed ONDANSETRON (ZOFRAN ODT) 4 MG DISINTEGRATING TABLET Take 1 tablet (4 mg) by mouth every 8 hours as needed for nausea I personally reviewed the laboratory results with the Patient and answered all related questions prior to discharge. Impression & Plan Medical Decision Making: Ileana Saul is a 30 year old female who is hyperemesis gravidarum. She has a non-tender abdomen. She has been struggling with emesis with this . She has no bleeding. She was given 2 liters of fluids and Benadryl with improvement of symptoms. We discussed outpatient management with her and follow up with her OBGYN this . Diagnosis: ICD-10-CM 1. Hyperemesis gravidarum O21.0 *UA reflex to Microscopic *UA reflex to Microscopic CANCELED: UA with Microscopic Plan: She can try Unisom over the counter and Reglan if that does not work, and finally Zofran, but did give her the caution regarding the remote chance of defects. I, Carrie Ribera, am serving as a scribe on 01/14/2016 at 5:36 PM to personally document services performed by Dr. Baker based on my observations and the provider's statements to me. Carrie Ribera 01/14/2016 EMERGENCY DEPARTMENT Sarbjit Baker MD 01/16/16 0118 ANICAL DETAILER David Garcia RN - 01/14/2016 4:59 PM CST Pt reports abd cramps prior to emesis, denies vaginal bleeding. ANICAL DETAILER documented in this encounter Plan of Treatment Not on filedocumented as of this encounter Procedures Procedure Name Priority Date/Time Associated Comments Diagnosis UA MACROSCOPIC WITH Routine 01/14/2016 8:28 PM Hyperemesis Re sults for this REFLEX TO MICRO MECHANICAL DETAILER gravidarum procedure ar e in the results section. CBC WITH PLATELETS & STAT 01/14/2016 6:30 PM R esults for this DIFFERENTIAL MECHANICAL DETAILER procedure are i n the results section. COMPREHENSIVE STAT 01/14/2016 6:30 PM Results for this METABOLIC PANEL MECHANICAL DETAILER procedure ar e in the results section. documented in this encounter Results (ABNORMAL) *UA reflex to Microscopic (01/14/2016 8:28 PM MECHANICAL DETAILER) [facility] Method Time Signature Color Urine Yellow [facility] Appearance Urine Clear [facility] Glucose Urine Negative NEG mg/dL [facility] Bilirubin Urine Negative NEG [facility] Ketones Urine 80 (A) NEG mg/dL [facility] Specific [place] 1.025 1.003 - [place] Urine 1.[address] [facility] Blood Urine Negative NEG [facility] pH Urine 6.0 5.0 - 7.[address] [place] [address] [facility] Protein Albumin Negative NEG mg/dL [place] Urine [facility] Urobilinogen 0.2 0.2 - 1.0 [place] Urine EU/dL [facility] Nitrite Urine Negative NEG [facility] Leukocyte Negative NEG [place] Esterase Urine [facility] Source Midstream [place] Urine [facility] Specimen Anatomical Collection Method Collection Time Receive d Time (Source) Location / / Volume Laterality 01/14/2016 8:28 PM 6 8:37 MECHANICAL DETAILER PM MECHANICAL DETAILER Sarbjit Baker MD LAB - URINE ORDERABLES Performing Organization Address City/State/ZIP Code Phon e Number [facility] [address], [place] [address] (ABNORMAL) Comprehensive metabolic panel (01/14/2016 6:30 PM MECHANICAL DETAILER) [facility] Method Time Signature Sodium 137 133 - 144 [place] mmol/L [facility] Potassium 3.6 3.4 - 5.3 [place] mmol/L [facility] Chloride 104 94 - 109 [place] mmol/L [facility] Carbon Dioxide 23 20 - 32 [place] mmol/L [facility] Anion Gap 10 3 - 14 [place] mmol/L [facility] Glucose 91 70 - 99 [place] mg/dL [facility] Urea Nitrogen 6 (L) 7 - 30 [place] mg/dL [facility] Creatinine 0.60 0.52 - [place] 1.04 [facility] mg/dL HOSPITAL GFR Estimate >90 >60 [place] Non GFR Calc mL/min/1. [place] [address] [facility] GFR Estimate If >90 >60 [place] Black GFR Calc mL/min/1. [place] [address]m2 [facility] Calcium 8.7 8.5 - [facility] 10.1 [facility] mg/dL [facility] Bilirubin Total 0.7 0.2 - 1.3 [place] mg/dL [facility] Albumin 3.7 3.4 - 5.0 [place] g/dL [facility] Protein Total 7.8 6.8 - 8.8 [place] g/dL [facility] Alkaline 63 40 - 150 [place] Phosphatase U/L [facility] ALT 27 0 - 50 [place] U/L [facility] AST 14 0 - 45 [place] U/L [facility] Specimen Anatomical Collection Method Collection Time Receive d Time (Source) Location / / Volume Laterality Blood specimen 01/14/2016 6:30 PM 016 6:42 (specimen) MECHANICAL DETAILER PM MECHANICAL DETAILER Sarbjit Baker MD LAB - BLOOD ORDERABLES Performing Organization Address City/State/ZIP Code Phon e Number M [facility] [address] [phone] [facility] [address] [address], [place] [phone] (ABNORMAL) CBC with platelets differential (01/14/2016 6:30 PM MECHANICAL DETAILER) [facility] Method Time Signature WBC 10.7 4.0 - [place] 11.0 [facility] 10e9/L [facility] RBC Count 4.84 3.8 - 5.2 [place] 10e12/L [facility] Hemoglobin 13.9 11.7 - [place] 15.7 g/dL [facility] Hematocrit 40.7 35.0 - [place] 47.0 % [facility] MCV 84 78 - 100 [facility] MCH 28.7 26.5 - [place] 33.0 pg [facility] MCHC 34.2 31.5 - [place] 36.5 g/dL [facility] RDW 13.8 10.0 - [place] 15.0 % [facility] Platelet Count 257 150 - 450 [place] 10e9/L [facility] Diff Method Automated [facility] % Neutrophils 82.3 % [facility] % Lymphocytes 11.9 % [facility] % Monocytes 4.5 % [facility] % Eosinophils 0.9 % [facility] % Basophils 0.1 % [facility] % Immature 0.3 % [place] Granulocytes [facility] Nucleated RBCs 0 0 /100 [facility] Absolute 8.8 (H) 1.6 - 8.3 [place] Neutrophil 10e9/L [facility] Absolute 1.3 0.8 - 5.3 [place] Lymphocytes 10e9/L [facility] Absolute 0.5 0.0 - 1.3 [place] Monocytes 10e9/L [facility] Absolute 0.1 0.0 - 0.7 [place] Eosinophils 10e9/L [facility] Absolute 0.0 0.0 - 0.2 [place] Basophils 10e9/L [facility] Abs Immature 0.0 0 - 0.4 [place] Granulocytes 10e9/L [facility] Absolute 0.0 [place] Nucleated RBC [facility] Specimen Anatomical Collection Method Collection Time Receive d Time (Source) Location / / Volume Laterality Blood specimen 01/14/2016 6:30 PM 016 6:42 (specimen) MECHANICAL DETAILER PM MECHANICAL DETAILER Sarbjit Baker MD LAB - BLOOD ORDERABLES Performing Organization Address City/State/ZIP Code Phon e Number [facility] [address] [phone] [facility] [address] [address], [facility] [phone] documented in this encounter Visit Diagnoses Diagnosis Hyperemesis gravidarum Mild hyperemesis gravidarum, unspecified as to episode of care documented in this encounter Administered Medications Inactive Administered Medications - up to 3 most recent administrations Medication Order MAR Action Action Date Dose Rate Site 0.9% sodium chloride BOLUS New Bag 01/14/2016 6:34 PM MECHANICAL DETAILER 2,000 mLs Intravenous, 2,000 mL, ONCE, On 01/14/16 at 1759, For 1 dose diphenhydrAMINE (BENADRYL) injection 25 mg Given 01/14/2016 6:50 PM MECHANICAL DETAILER 25 mg 25 mg, Intravenous, ONCE, On 01/14/16 at 1759, For 1 dose documented in this encounter Active and Recently Administered Medications Times are shown in MECHANICAL DETAILER. Scheduled Medication Order 01/12/2016 01/13/2016 01/14/2016 0.9% sodium chloride BOLUS (COMPLETED) 1834 (New Bag - Provider: Maxine Martines RN)2020 (Stopped - Provider: Hever De RN) Intravenous, 2,000 mL, ONCE, 01/14/16 at 1759, For 1 dose diphenhydrAMINE (BENADRYL) injection 25 mg (COMPLETED) 1850 (Given - Provider: Maxine Martines RN) 25 mg, Intravenous, ONCE, 01/14/16 at 1759, For 1 dose documented in this encounter Care Teams Care Center Manager Relationship Specialty Start Date End Date No Ref-Primary, Physician PCP - General 01/14/16 documented as of this encounter
--- OUTSIDE RECORDS SUMMARY | 2022-07-13 07:48 | XMS_ITS | Encounter Summary ---
:1985 Author Organization [facility] Address [address] [place] [address] Care Team Providers Name Role Phone No Ref-Primary, Physician Primary Care Provider [phone] Lashawn Urias MD Unavailable Reason for Visit Reason Comments Pre-Op Exam 11/20/17 L ACL repair Fx - Encounter Details Date Type Department Care Team Description 11/04/2017 Office Visit [facility] Lashawn Urias, Preo perative examination (Primary Dx); [facility] [place] Rupture of anterior cruciate ligament of left knee, subsequent encounter; [facility] [address] disorder; [address] Need for vaccination; [place] [address] Need for prophylactic vaccination and in oculation against influenza [id number] [phone] Social History Tobacco Use Types Packs/Day Years [...] Sign Reading Time Taken Comments Blood Pressure 124/80 11/04/2017 9:05 AM ORAL SURGERY TECHNICIAN Pulse 89 11/04/2017 9:05 AM ORAL SURGERY TECHNICIAN Temperature 36.6 ??C (97.8 ??F) 11/04/2017 9:05 AM ORAL SURGERY TECHNICIAN Respiratory Rate - - Oxygen Saturation 98% 11/04/2017 9:05 AM ORAL SURGERY TECHNICIAN Inhaled Oxygen - - Concentration Weight 119.7 kg (263 lb 11/04/2017 9:05 AM Weighed with L knee 12.8 oz) ORAL SURGERY TECHNICIAN brace Height 165.1 cm (5' 5) 11/04/2017 9:05 AM Measured wit h L knee ORAL SURGERY TECHNICIAN brace. Unable to fully stretch th e leg Body Mass Index 43.9 11/04/2017 9:05 AM ORAL SURGERY TECHNICIAN documented in this encounter Patient Instructions Patient InstructionsLashawn Urias MD - 11/04/2017 9:00 AM CST MRSA swab today. Tetanus booster and flu shot today. --- Labs downstairs. --- We will fax preop to surgery center. SURGERY TECHNICIAN documented in this encounter Progress Notes César Musa - 11/04/2017 11:25 AM CST Injectable Influenza Immunization Documentation 1. Is the person to be vaccinated sick today? No 2. Does the person to be vaccinated have an allergy to a component of the vaccine? No Egg Allergy Algorithm Link 3. Has the person to be vaccinated ever had a serious reaction to influenza vaccine in the past? No 4. Has the person to be vaccinated ever had Guillain-Bhakta?? syndrome? No Form completed by César WATERMAN SURGERY TECHNICIAN Lashawn Urias MD - 11/04/2017 9:00 AM CST SUBJECTIVE: HPI: Ileana Saul is a pleasant 32 year old female who presents for preoperative evaluation. Surgeon: Brian Date: 11/20/17 Location: [facility], Surgery: left ACL repair (intermediate risk) Indication: left ACL tear Past Medical History: Diagnosis Date ??? Morbid obesity (H) ??? Stomach disorder NOS; uses nortriptyline daily with relief Personal or family history of excessive or prolonged bleeding? No Personal or family history of blood clots? No History of snoring/Sleep Apnea? No History of blood transfusions? No Clinical Predictors of Increased Risk: none Past Surgical History: Procedure Laterality Date ??? LAPAROSCOPIC APPENDECTOMY 2007 Artificial assistive devices, such as pacemakers, artificial cardiac valves, or artificial joints? No Allergies Allergen Reactions ??? Hydrocodone Vomiting ??? Penicillins rash ??? Sulfa Drugs Rash Personal or family history of allergy to anesthesia? Patient with post-op N&V Allergy to local or topical analgesics? No Allergy to latex? No Allergy to adhesives/skin preparations (chlorhexadine)? No Current Outpatient Prescriptions Medication Sig ??? traMADol (ULTRAM) 50 MG tablet Take 50 mg by mouth as needed ??? NORTRIPTYLINE HCL PO Take 10 mg by mouth At Bedtime Over the counter medications? No Vitamin Supplements? No Herbal Supplements? No Family History Problem Relation Age of Onset ??? Breast Cancer Mother 50 ??? Skin Cancer Mother unknown type ??? Multiple Sclerosis Mother ??? Type 2 Diabetes Father ??? Coronary Artery Disease Father s/p CABG later in life ??? Multiple Sclerosis Sister ??? Lung Cancer Maternal Grandfather smoker ??? Coronary Artery Disease Paternal Uncle 3 uncles; s/p CABG, PCI, and HI, all later in life ??? Breast Cancer Maternal Aunt ??? Coronary Artery Disease Early Onset No family hx of ??? Ovarian Cancer No family hx of ??? Colon Cancer No family hx of Occupational History ??? Data/[employer] Social History Main Topics ??? Smoking status: Never Smoker ??? Smokeless tobacco: Never Used ??? Alcohol use Yes Comment: 2 drinks/month ??? Drug use: No ??? Sexual activity: Yes Partners: Male Social History Narrative In a relationship. No kids. Active, but no formal exercise. Functional capacity: Can do heavy work around the house such as scrubbing floors or lifting or moving heavy furniture (4-10 METs) ROS: Constitutional: denies unintentional weight loss or gain; denies fevers, chills, or sweats Cardiovascular: denies chest pain, palpitations, or edema Respiratory: denies cough, wheezing, shortness of breath, or dyspnea on exertion Gastrointestinal: denies nausea, vomiting, constipation, diarrhea, or abdominal pain Genitourinary: denies urinary frequency, urgency, dysuria, or hematuria Integumentary: denies rash or pruritus Musculoskeletal: denies back pain, muscle pain, joint pain, or joint swelling Neurologic: denies focal weakness, numbness, or tingling Hematologic/Immunologic: denies history of anemia or blood transfusions Endocrine: denies heat or cold intolerance; denies polyuria, polydipsia Psychiatric: denies depression or anxiety OBJECTIVE: BP 124/80 (BP Location: Left arm, Patient Position: Chair, Cuff Size: Adult Large) Pulse 89 Temp97.8 ??F (36.6 ??C) (Oral) Ht 5' 5 (1.651 m) Wt 263 lb 12.8 oz (119.7 kg) LMP 10/27/2017 (Exact Date) SpO2 98% ? No BMI 43.9 kg/m2 Constitutional: well-appearing Eyes: normal conjunctivae and lids; pupils equal, round, and reactive to light Ears, Nose, Mouth, and Throat: normal ears and nose; tympanic membranes visualized and normal; normal lips, teeth, and gums; no oropharyngeal lesions or ulcers Neck: supple and symmetric; no lymphadenopathy; no thyromegaly or masses Respiratory: normal respiratory effort; clear to auscultation bilaterally Cardiovascular: regular rate and rhythm; pedal pulses palpable; no edema Gastrointestinal: soft, non-tender, non-distended, and bowel sounds present; no organomegaly or masses Musculoskeletal: left leg in stabilizer Psych: normal judgment and insight; normal mood and affect; recent and remote memory intact; oriented to time, place, and person ASSESSMENT/PLAN: Ileana Saul is a pleasant 32 year old female who presents for a preoperative evaluation. She is at low clinical risk for an intermediate risk procedure. (Z01.818) Preoperative examination (primary encounter diagnosis) (S83.512D) Rupture of anterior cruciate ligament of left knee, subsequent encounter (K31.9) Stomach disorder Plan: - *NOTE* post-op N&V. - CBC, CMP, and MRSA swab today. - may CONTINUE nortriptyline up to and on the day of surgery. (Z23) Need for vaccination (Z23) Need for prophylactic vaccination and inoculation against influenza Comment: unrelated to surgery. Plan: TDAP and flu shots given today. RECOMMEND PROCEEDING WITH SURGERY: YES. Thank you for referring Ileana Saul to me for consultation and allowing me to participate in her care. The instructions on the AVS were discussed and explained to the patient. Patient expressed understanding of instructions. (Chart documentation was completed, in part, with [employer] voice-recognition software. Even though reviewed, some grammatical, spelling, and word errors may remain.) Lashawn Urias MD [address] [address] T: [phone], F: [phone] SURGERY TECHNICIAN documented in this encounter Nursing Notes César Musa - 11/04/2017 9:00 AM CST Chief Complaint Patient presents with ??? Pre-Op Exam 11/20/17 L ACL repair Fx - [phone] Initial BP 124/80 (BP Location: Left arm, Patient Position: Chair, Cuff Size: Adult Large) Pulse 89 Temp 97.8 ??F (36.6 ??C) (Oral) Ht 5' 5 (1.651 m) Wt 263 lb 12.8 oz (119.7 kg) LMP 10/27/2017 (Exact Date) SpO2 98% ? No BMI 43.9 kg/m2 Estimated body mass index is 43.9 kg/(m^2) as calculated from the following: Height as of this encounter: 5' 5 (1.651 m). Weight as of this encounter: 263 lb 12.8 oz (119.7 kg). Medication Reconciliation: melanie Lindsey MA SURGERY TECHNICIAN César Musa - 11/04/2017 9:00 AM CST Screening Questionnaire for Adult Immunization Are you sick today? No Do you have allergies to medications, food, a vaccine component or latex? No Have you ever had a serious reaction after receiving a vaccination? No Do you have a long-term health problem with heart disease, lung disease, asthma, kidney disease, metabolic disease (e.g. diabetes), anemia, or other blood disorder? No Do you have cancer, leukemia, HIV/AIDS, or any other immune system problem? No In the past 3 months, have you taken medications that affect your immune system, such as prednisone,other steroids, or anticancer drugs; drugs for the treatment of rheumatoid arthritis, Crohn???s disease, or psoriasis; or have you had radiation treatments? No Have you had a seizure, or a brain or other nervous system problem? No During the past year, have you received a transfusion of blood or blood products, or been given immune (gamma) globulin or antiviral drug? No For women: Are you or is there a chance you could become during the next month? No Have you received any vaccinations in the past 4 weeks? No Immunization questionnaire answers were all negative. Per orders of Dr. Urias, injection of Tdap given by César Musa. Patient instructed to remain in clinic for 15 minutes afterwards, and to report any adverse reaction to me immediately. Screening performed by César Musa on 11/04/2017 at 9:43 AM. SURGERY TECHNICIAN documented in this encounter Plan of Treatment Not on filedocumented as of this encounter Procedures Procedure Name Priority Date/Time Associated Diagnosis Comme nts COMPREHENSIVE Routine 11/04/2017 9:54 Preoperative Results for this METABOLIC PANEL AM ORAL SURGERY TECHNICIAN examination procedure are in Rupture of anterior the resu lts cruciate ligament of section . left knee, subsequent encounter CBC WITH PLATELETS Routine 11/04/2017 9:54 Preoperative Result s for this AM ORAL SURGERY TECHNICIAN examination procedure are in Rupture of anterior the resu lts cruciate ligament of section . left knee, subsequent encounter MRSA MSSA PCR, NASAL Routine 11/04/2017 9:45 Preoperative Resu lts for this SWAB AM ORAL SURGERY TECHNICIAN examination procedure are in Rupture of anterior the resu lts cruciate ligament of section . left knee, subsequent encounter documented in this encounter Results Comprehensive metabolic panel (11/04/2017 9:54 AM ORAL SURGERY TECHNICIAN) athologist Signature Sodium 141 133 - 144 11/04/2017 [facility] mmol/L 10:57 AM ORAL SURGERY TECHNICIAN [place] [facility] Potassium 4.5 3.4 - 5.3 11/04/2017 [facility] mmol/L 10:57 AM ORAL SURGERY TECHNICIAN [place] Chloride 108 94 - 109 11/04/2017 [facility] mmol/L 10:57 AM ORAL SURGERY TECHNICIAN [place] Carbon Dioxide 27 20 - 32 11/04/2017 [facility] mmol/L 10:57 AM [facility] Anion Gap 6 3 - 14 11/04/2017 [facility] mmol/L 10:57 AM [facility] [place] Glucose 93 70 - 99 11/04/2017 [facility] mg/dL 10:57 AM [facility] Comment: Fasting specimen Urea Nitrogen 13 7 - 30 mg/dL 11/04/2017 10:57 [facility] ORAL SURGERY TECHNICIAN [place] Creatinine 0.69 0.52 - 1.04 mg/dL 11/04/2017 10:57 AM [facility] TECHNICIAN [place] GFR Estimate >90 >60 mL/min/1.7m2 11/04/2017 10:57 AM [facility] ORAL SURGERY TECHNICIAN [place] Comment: Non GFR Calc GFR Estimate If >90 >60 mL/min/1.7m2 11/04/2017 10:57 AM [facility] Black ORAL SURGERY TECHNICIAN [place] Comment: GFR Calc Calcium 9.0 8.5 - 10.1 11/04/2017 10:57 AM [facility] mg/dL ORAL SURGERY TECHNICIAN [place] [facility] Bilirubin Total 0.4 0.2 - 1.3 mg/dL 11/04/2017 10:57 A M [facility] ORAL SURGERY TECHNICIAN [place] Albumin 3.8 3.4 - 5.0 g/dL 11/04/2017 10:57 AM [facility] ORAL SURGERY TECHNICIAN [place] Protein Total 7.8 6.8 - 8.8 g/dL 11/04/2017 10:57 AM [facility] ORAL SURGERY TECHNICIAN [place] Alkaline Phosphatase 70 40 - 150 U/L 11/04/2017 10:57 AM [facility] ORAL SURGERY TECHNICIAN [place] ALT 20 0 - 50 U/L 11/04/2017 10:57 AM [facility] ORAL SURGERY TECHNICIAN [place] AST 14 0 - 45 U/L 11/04/2017 10:57 AM [facility] Specimen Anatomical Collection Method Collection Time Receive d Time (Source) Location / / Volume Laterality Blood specimen 11/04/2017 9:54 AM 017 9:59 (specimen) ORAL SURGERY TECHNICIAN AM ORAL SURGERY TECHNICIAN Lashawn Urias MD LAB - BLOOD ORDERABLES Performing Organization Address City/[facility]/ZIP Code Phon e Number [facility] [address] [place] [address] CBC with platelets (11/04/2017 9:54 AM ORAL SURGERY TECHNICIAN) athologist Signature WBC 7.5 4.0 - 11.0 11/04/2017 [facility] 10e9/L 10:24 AM [facility] RBC Count 4.80 3.8 - 5.2 11/04/2017 [facility] 10e12/L 10:24 AM [facility] Hemoglobin 13.8 11.7 - 11/04/2017 [facility] 15.7 g/dL 10:24 AM [facility] Hematocrit 43.4 35.0 - 11/04/2017 [facility] 47.0 % 10:24 AM [facility] MCV 90 78 - 100 11/04/2017 [facility] fl 10:24 AM [facility] MCH 28.8 26.5 - 11/04/2017 [facility] 33.0 pg 10:24 AM [facility] MCHC 31.8 31.5 - 11/04/2017 [facility] 36.5 g/dL 10:24 AM [facility] RDW 12.8 10.0 - 11/04/2017 [facility] 15.0 % 10:24 AM [facility] Platelet Count 287 150 - 450 11/04/2017 [facility] 10e9/L 10:24 AM [facility] Specimen Anatomical Collection Method Collection Time Receive d Time (Source) Location / / Volume Laterality Blood specimen 11/04/2017 9:54 AM 017 9:59 (specimen) ORAL SURGERY TECHNICIAN AM ORAL SURGERY TECHNICIAN Lashawn Urias MD LAB - BLOOD ORDERABLES Performing Organization Address City/[facility] Code Phon e Number [facility] [address] [place] [phone] Methicillin Resistant Staph Aureus PCR (11/04/2017 9:45 AM ORAL SURGERY TECHNICIAN) [facility] gist Method Time Signature Specimen Nares 11/04/2017 [place] Description 9:25 AM [facility] Methicillin Negative NEG^Negat 11/04/2017 [facility] Resist/Sens S. yahaira 6:40 PM [facility] aureus PCR [facility] Comment: MRSA Negative: SA Positive MRSA target DNA not detected, presumed n egative for MRSA colonization or the number of bacteria present may be below the limit of detection. Staphylococcus aureus target DNA detecte d, presumed positive for SA colonization. A positive test does not necessarily ind icate the presence of viable organisms. ??It is, however, presumptive for the presence of SA. ??This result does not preclude MRSA nasal colonizatio n. FDA approved assay performed using [employer] GeneXpert(R) real-time PCR. Specimen (Source) Anatomical Collection Method Collection Time Re ceived Time Location / / Volume Laterality Nasal structure 11/04/2017 9:45 7 9:54 (body structure) AM ORAL SURGERY TECHNICIAN AM ORAL SURGERY TECHNICIAN Lashawn Urias MD LAB - MICRO GENERAL ORDERABL ES Performing Organization Address City/State/ZIP Code Phon e Number [facility] [address] [place] [address] [facility] [address] [place] [phone] documented in this encounter Visit Diagnoses Diagnosis Preoperative examination - Primary Preoperative examination, unspecified Rupture of anterior cruciate ligament of left knee, subsequent encounter Stomach disorder Unspecified disorder of stomach and duod enum Need for vaccination Need for prophylactic vaccination and in oculation against unspecified single disease Need for prophylactic vaccination and in oculation against influenza documented in this encounter Care Teams Director Cloud Transformation Relationship Specialty Start Date End Date No Ref-Primary, Physician PCP - General 01/14/16 Lashawn Urias MD PCP - Assigned PCP 11/10/17 11/08/[address] [place] [id number] documented as of this encounter
--- OUTSIDE RECORDS SUMMARY | 2022-07-13 07:48 | XMS_ITS | Encounter Summary ---
:1985 Author Organization [facility] Address [address] [place] [address] Care Team Providers Name Role Phone No Ref-Primary, Physician Primary Care Provider Ivelisse Melgar PA-C Unavailable Lashawn Urias MD Unavailable Ivelisse Melgar PA-C Unavailable [phone] Lashawn Urias MD Unavailable Ivelisse Melgar PA-C Unavailable [phone] Evy Danielle CNP Primary Care Provider Unavailable Encounter Details Date Type Department Care Team Description 06/27/2015 [facility] - [facility] Marlene Llanos MD Pain in joint, [address] [facility] S shoulder region [place], [place] [address] (Wo rk) Social History [...] Priority Date/Time Associated Diagnosis Comme nts MR SHOULDER RIGHT Routine 06/27/2015 5:52 PM Pain in joint, Re sults for this W/O CONTRAST CDT shoulder region procedure ar e in the results section. documented in this encounter Results MR Shoulder Right w/o Contrast (06/27/2015 5:52 PM CDT) Anatomical Region Laterality Modality Right Shoulder, SUBRAD MR MSK, UMP MR MSK, RAD MR Other Specimen (Source) Anatomical Location Collection Method / Collectio n Time Received Time / Laterality Volume Impressions 06/27/2015 7:08 PM CDT CONCLUSION: 1. ??Minimal right subacromial-subdeltoi d bursitis. 2. ??Intact right rotator cuff. Narrative 06/27/2015 7:08 PM CDT MRI RIGHT SHOULDER 06/27/2015 5:52 PM INDICATION: Right shoulder pain. TECHNIQUE: Routine. COMPARISON: None. FINDINGS: ROTATOR CUFF: Rotator cuff muscle bulk i s within normal limits. There is no acute intramuscular edema to suggest muscle strain or denervation edema. The rotator cuff is intact without tendinopathy or tear. Specifically, the subscapularis is intact. ACROMIOCLAVICULAR REGION: Type II acromi on. Intact coracoacromial ligament. No subacromial spur. Intact coracoclavicular ligaments. There is fluid in the subacromial-subdeltoid bursa. Acromioclavicular joint is normal. GLENOHUMERAL JOINT: On this nonarthrogra phic study, the intra-articular portion of the long head biceps tendon is intact. The labrum appears intact on this nonarthrographic study. No focal glenohumeral chondrosis. There is a physiologic amoun t of fluid in the shoulder joint. BONES AND SOFT TISSUES: No round or oval marrow replacing bone lesion identified within the bones of the right shoulder girdle. The visualized chest wall and axilla is unremarkable. Procedure Note Ti Weinstein MD - 04/30/2021 MRI RIGHT SHOULDER 06/27/2015 5:52 PM INDICATION: Right shoulder pain. TECHNIQUE: Routine. COMPARISON: None. FINDINGS: ROTATOR CUFF: Rotator cuff muscle bulk i s within normal limits. There is no acute intramuscular edema to suggest muscle strain or denervation edema. The rotator cuff is intact without tendinopathy or tear. Specifically, the subscapularis is intact. ACROMIOCLAVICULAR REGION: Type II acromi on. Intact coracoacromial ligament. No subacromial spur. Intact coracoclavicular ligaments. There is fluid in the subacromial-subdeltoid bursa. Acromioclavicular joint is normal. GLENOHUMERAL JOINT: On this nonarthrogra phic study, the intra-articular portion of the long head biceps tendon is intact. The labrum appears intact on this nonarthrographic study. No focal glenohumeral chondrosis. There is a physiologic amount of fluid in the shoulder joint. BONES AND SOFT TISSUES: No round or oval marrow replacing bone lesion identified within the bones of the right shoulder girdle. The visualized chest wall and axilla is unremarkable. IMPRESSION: CONCLUSION: 1. Minimal right subacromial-subdeltoid bursitis. 2. Intact right rotator cuff. Darya Llanos MD IMG MRI ORDERABLES documented in this encounter Visit Diagnoses Diagnosis Pain in joint, shoulder region documented in this encounter Care Teams Stone Carriage Operator Relationship Specialty Start Date End Date No Ref-Primary, Physician PCP - General 01/14/16 Ivelisse Melgar, PCP - Assigned PCP 11/0901/27/19 PA-C [address] [place], [place] [id number] Lashawn Urias MD PCP - Assigned PCP 11/10/17 11/08/[address] [place] [id number] Evy Danielle, RAJI PCP - General Family Practice 07/01/1501/13 Ivelisse Melgar, Assigned PCP 11/09/18 02/21/19 PA-C [id number] [place] [address] Lashawn Urias MD Assigned PCP 02/22/19 11/12/20 [address] [place] [id number] Ivelisse Melgar, Assigned PCP 11/13/20 02/18/21 [facility] [id number] [place] [address] documented as of this encounter
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
--- OUTSIDE RECORDS SUMMARY | 2022-07-13 07:48 | XMS_ITS | Encounter Summary ---
:1985 Author Organization [place] Address [address] [place] [address] Care Team Providers Name Role Phone No Ref-Primary, Physician Primary Care Provider [phone] Encounter Details Date Type Department Care Team Description 04/21/2021 Records - [facility] HE CONVERSION Provider, Histor ical Social History [...] Priority Date/Time Associated Diagnosis Comme nts XR ELBOW LEFT 2 Routine 12/11/2004 12:00 AM Resul ts for this VIEWS TEAM FACILITATOR procedure are i n the results section. documented in this encounter Results XR Elbow Left 2 Views (12/11/2004 12:00 AM TEAM FACILITATOR) Anatomical Region Laterality Modality Elbow, Left Elbow Left Other Specimen (Source) Anatomical Location Collection Method / Collectio n Time Received Time / Laterality Volume Narrative 12/11/2004 12:00 AM TEAM FACILITATOR See Historical Hospital Medical Record f or documentation Procedure Note Provider, Historical - 04/21/2021Formatt ing of this note might be different from the original. See Historical Hospital Medical Record f or documentation Historical Provider IMG DIAGNOSTIC IMAGING ORDER ESHA documented in this encounter Visit Diagnoses Not on filedocumented in this encounter Care Teams Cte Teacher Relationship Specialty Start Date End Date No Ref-Primary, Physician PCP - General 01/14/16 documented as of this encounter
--- OUTSIDE RECORDS SUMMARY | 2022-07-13 07:48 | XMS_ITS | Encounter Summary ---
:1985 Author Organization [place] Address [address] [place] [address] Care Team Providers Name Role Phone No Ref-Primary, Physician Primary Care Provider [phone] Lashawn Urias MD Unavailable Reason for Visit Reason Comments Blister x 1 day. Blister in sacral u lcer area broke out. Encounter Details Date Type Department Care Team Description 11/13/[address] [facility] Lashawn Urias, Absc ess, sacrum (H) Clinic Mad[facility]ha ANNA (Primary Dx) [facility] [address] [address] [phone] Social History Tobacco Use Types Packs/Day Years [...] Sign Reading Time Taken Comments Blood Pressure 120/66 11/13/2017 11:21 AM SEWING MACHINE MECHANIC Pulse 129 11/13/2017 11:21 AM SEWING MACHINE MECHANIC Temperature 37.7 ??C (99.8 ??F) 11/13/2017 11:21 AM SEWING MACHINE MECHANIC Respiratory Rate - - Oxygen Saturation 96% 11/13/2017 11:21 AM SEWING MACHINE MECHANIC Inhaled Oxygen Concentration - - Weight 116.6 kg (257 lb) 11/13/2017 11:21 AM SEWING MACHINE MECHANIC Height 165.1 cm (5' 5) 11/13/2017 11:21 AM SEWING MACHINE MECHANIC Body Mass Index 42.77 11/13/2017 11:21 AM SEWING MACHINE MECHANIC documented in this encounter Patient Instructions Patient InstructionsLashawn Urias MD - 11/13/2017 12:00 PM CST Clindamycin 4x/day x 7 days. --- Ultram 1-2 tabs as needed for pain. --- Warm water bath 3x/day for 10-15 minutes. NG MACHINE MECHANIC documented in this encounter Progress Notes Lashawn Urias MD - 11/13/2017 12:00 PM CST SUBJECTIVE: HPI: Ileana Saul is a pleasant 32 year old female who presents with a painful blister: Patient suffered a left ACL tear 10/06/2017. Was seen for preoperative assessment 11/04/2017. Surgery scheduled for 11/20/[address] Torres ([facility]). Patient was seen again 11/08/2017 complaining of sacral soreness. A sacral decubitus ulcer, stage I,was noted at that time. Patient admitted to spending most of her day on the couch since her ACL tearin mid September. This combined with her morbid obesity likely contributed to her sacral decubitus ulcer formation. Patient was encouraged to stay as active as possible and avoid prolonged sitting especially in soft seating. Patient was also encouraged to keep that area clean and dry. Patient contacted our clinic 11/11/2017 complaining of worsening sacral pain and blister formation. Tylenol and ibuprofen (until 1 week before her surgery) and cool compresses recommended. Patient presents to clinic today with continued worsening sacral pain and purulent and bloody drainage from reported blister. No fevers or chills. --- Allergies significant for allergies to penicillin and sulfa. --- The medication, allergy, and problem lists have been reviewed and updated as appropriate. OBJECTIVE: BP 120/66 (BP Location: Left arm, Patient Position: Chair, Cuff Size: Adult Large) Pulse 129 Temp 99.8 ??F (37.7 ??C) (Oral) Ht 5' 5 (1.651 m) Wt 257 lb (116.6 kg) LMP 10/27/2017 (Exact Date) SpO2 96% BMI 42.77 kg/m2 Constitutional: well-appearing Integumentary: 2 area of erythema with underlying fluctuance noted on sacrum/upper part of buttocks- just to the right of midline; purulent and bloody discharge with gentle palpation of area; exquisite tenderness to palpation PROCEDURE: Discussed I&D procedure with patient. Potential risks, including bleeding, infection, pain, incomplete treatment, and recurrence were discussed. Patient verbally agreed to proceed with procedure. Area cleaned with alcohol swabs. Lidocaine 1% with epi injected subcutaneously around wound. Area prepped with povidone-iodine swabs. 15 blade used to make 0.5 cm incision over peak of fluctuance. Pressure applied to area. Moderate amount of bloody and purulent matter expressed. Area cleaned with saline. Gauze Secured with with paper tape applied to wound. Blood loss <5cc. Patient tolerated procedure well. Procedure time: 5 minutes. ASSESSMENT/PLAN: (M46.28) Abscess, sacrum (H) (primary encounter diagnosis) Comment: - likely complication of sacral decubitus ulcer. - s/p successful I&D. Plan: - sitz bath 3 times a day. - clindamycin 300 mg 4x/day ?? 7 days. - Ultram as needed for pain. - if pain worsens, patient to contact MD. - if significant bleeding/purulent discharge, fevers, or chills develop, patient to contact MD. From my perspective patient may still proceed with surgery next week. The instructions on the AVS were discussed and explained to the patient. Patient expressed understanding of instructions. (Chart documentation was completed, in part, with [employer] voice-recognition software. Even though reviewed, some grammatical, spelling, and word errors may remain.) Lashawn Urias MD [place] [address] [address] T: [phone], F: [phone] NG MACHINE MECHANIC documented in this encounter Nursing Notes César Musa - 11/13/2017 12:00 PM CST Chief Complaint Patient presents with ??? Blister x 1 day. Blister in sacral ulcer area broke out. Initial BP 120/66 (BP Location: Left arm, Patient Position: Chair, Cuff Size: Adult Large) Pulse 129 Temp 99.8 ??F (37.7 ??C) (Oral) Ht 5' 5 (1.651 m) Wt 257 lb (116.6 kg) LMP 10/27/2017 (Exact Date) SpO2 96% BMI 42.77 kg/m2 Estimated body mass index is 42.77 kg/(m^2) as calculated fromthe following: Height as of this encounter: 5' 5 (1.651 m). Weight as of this encounter: 257 lb (116.6 kg). Medication Reconciliation: complete César WATERMAN NG MACHINE MECHANIC documented in this encounter Plan of Treatment Not on filedocumented as of this encounter Procedures Procedure Name Priority Date/Time Associated Diagnosis Comme nts HC DRAIN SKIN ABSCESS Routine 11/13/2017 1:42 PM SEWING MACHINE MECHANIC Abscess, sacrum (H) SIMPLE/SINGLE documented in this encounter Visit Diagnoses Diagnosis Abscess, sacrum (H) - Primary Acute osteomyelitis, other specified sit e documented in this encounter Care Teams Help Desk Operator Relationship Specialty Start Date End Date No Ref-Primary, Physician PCP - General 01/14/16 Lashawn Urias MD PCP - Assigned PCP 11/10/17 11/08/[address] [place] [address] documented as of this encounter
--- OUTSIDE RECORDS SUMMARY | 2022-07-13 07:48 | XMS_ITS | Encounter Summary ---
:1985 Author Organization [place] Address [address] [place] [address] Care Team Providers Name Role Phone No Ref-Primary, Physician Primary Care Provider [phone] Lashawn Urias MD Unavailable Reason for Visit Reason Onset Date Comments Patient Request 11/13/2017 tailbone blister pop out Encounter Details Date Type Department Care Team Description 11/13/2017 Telephone [facility] Lashawn Urias Teagan ent Request Clinic Madiha ANNA (tailbone blister pop [place] [address] out) [address] [address] [phone] Social History Tobacco Use Types Packs/Day Years [...] this encounter Miscellaneous Notes Telephone Encounter - Shira Sofia ([place] kwan - 11/13/2017 9:38 AM TOOL DESIGN DRAFTER Patient reports blister at sacral region opened last night, draining serosanguinous and purulent fluid. Draining quite a bit since opening. Denies fever, dizziness, or light-headedness. Informed Dr. Urias who stated patient could be worked into schedule this afternoon. Scheduled patient at 1200. Patient stated understanding. Advised patient to call back if symptoms worsen, change, or new symptoms develop. DESIGN DRAFTER Telephone Encounter - Pat Weldon RN - 11/13/2017 9:32 AM CST Left message for patient to call back. Please see 11/08/17 OV for notes regarding plan. Dr. Urias stated that sacral ulcer could take 2-3 weeks to heal. DESIGN DRAFTER Telephone Encounter - Danny Gates - 11/13/2017 9:23 AM CST Reason for call: Patient reporting a symptom Symptom or request: blister on tail bone Duration (how long have symptoms been present): 1 week Have you been treated for this before? Yes Additional comments: Blister pop out, not sure what to do with it. Patient requesting to get call back. Phone Number patient can be reached at: Home number on file [phone] (home) Best Time: Anytime Can we leave a detailed message on this number: YES Call taken on 11/13/2017 at 9:23 AM by DANNY GATES DESIGN DRAFTER documented in this encounter Plan of Treatment Not on filedocumented as of this encounter Visit Diagnoses Not on filedocumented in this encounter Care Teams Commissions Specialist Relationship Specialty Start Date End Date No Ref-Primary, Physician PCP - General 01/14/16 Lashawn Urias MD PCP - Assigned PCP 11/10/17 11/08/18 [address] [place] [address] documented as of this encounter
--- OUTSIDE RECORDS SUMMARY | 2022-07-13 07:48 | XMS_ITS | Encounter Summary ---
:1985 Author Organization [place] Address [address] [place] [address] Care Team Providers Name Role Phone No Ref-Primary, Physician Primary Care Provider [phone] Encounter Details Date Type Department Care Team Description 04/26/2021 Records - [facility] HE CONVERSION Provider, Histor ical Social History [...] Priority Date/Time Associated Diagnosis Comme nts CT HEAD W/O Routine 08/19/2010 12:00 AM Results for this CONTRAST CDT procedure are i n the results section. CT CERVICAL SPINE Routine 08/19/2010 12:00 AM Res ults for this W/O CONTRAST CDT procedure are i n the results section. XR KNEE RIGHT 1/2 Routine 08/19/2010 12:00 AM Res ults for this VIEWS CDT procedure are i n the results section. XR CERVICAL SPINE Routine 08/19/2010 12:00 AM Res ults for this 2/3 VIEWS CDT procedure are i n the results section. XR CHEST 1 VIEW Routine 08/19/2010 12:00 AM Resul ts for this CDT procedure are i n the results section. documented in this encounter Results XR Cervical Spine 2/3 Views (08/19/2010 12:00 AM CDT) Anatomical Region Laterality Modality Spine Other Specimen (Source) Anatomical Location Collection Method / Collectio n Time Received Time / Laterality Volume Narrative 08/19/2010 12:00 AM CDT See Historical Hospital Medical Record f or documentation Procedure Note Provider, Historical - 04/26/2021Formatt ing of this note might be different from the original. See Historical Hospital Medical Record f or documentation Historical Provider IMG DIAGNOSTIC IMAGING ORDER ESHA CT Cervical Spine w/o Contrast (08/19/2010 12:00 AM CDT) Anatomical Region Laterality Modality Spine, SUBRAD CT NEURO, SUBRAD CT NEURO, UMP CT SPINE, Computed Tomography RAD CT Specimen (Source) Anatomical Location Collection Method / Collectio n Time Received Time / Laterality Volume Narrative 08/19/2010 12:00 AM CDT See Historical Hospital Medical Record f or documentation Procedure Note Provider, Historical - 04/26/2021Formatt ing of this note might be different from the original. See Historical Hospital Medical Record f or documentation Historical Provider IMG CT ORDERABLES XR Chest 1 View (08/19/2010 12:00 AM CDT) Anatomical Region Laterality Modality Chest Digital Radiography Specimen (Source) Anatomical Location Collection Method / Collectio n Time Received Time / Laterality Volume Narrative 08/19/2010 12:00 AM CDT See Historical Hospital Medical Record f or documentation Procedure Note Provider, Historical - 04/26/2021Formatt ing of this note might be different from the original. See Historical Hospital Medical Record f or documentation Historical Provider IMG DIAGNOSTIC IMAGING ORDER ESHA CT Head w/o Contrast (08/19/2010 12:00 AM CDT) Anatomical Region Laterality Modality Head, SUBRAD CT NEURO, SUBRAD CT NEURO, UMP CT NEURO, Computed Tomography RAD CT Specimen (Source) Anatomical Location Collection Method / Collectio n Time Received Time / Laterality Volume Narrative 08/19/2010 12:00 AM CDT See Historical Hospital Medical Record f or documentation Procedure Note Provider, Historical - 04/26/2021Formatt ing of this note might be different from the original. See Historical Hospital Medical Record f or documentation Historical Provider IMG CT ORDERABLES XR Knee Right 1/2 Views (08/19/2010 12:00 AM CDT) Anatomical Region Laterality Modality Leg, Thigh, Knee Right Other Specimen (Source) Anatomical Location Collection Method / Collectio n Time Received Time / Laterality Volume Narrative 08/19/2010 12:00 AM CDT See Historical Hospital Medical Record f or documentation Procedure Note Provider, Historical - 04/26/2021Formatt ing of this note might be different from the original. See Historical Hospital Medical Record f or documentation Historical Provider IMG DIAGNOSTIC IMAGING ORDER ESHA documented in this encounter Visit Diagnoses Not on filedocumented in this encounter Care Teams Play Reader Relationship Specialty Start Date End Date No Ref-Primary, Physician PCP - General 01/14/16 documented as of this encounter
--- OUTSIDE RECORDS SUMMARY | 2022-07-13 07:48 | XMS_ITS | Encounter Summary ---
:1985 Author Organization [place] Address [address] [place] [address] Care Team Providers Name Role Phone No Ref-Primary, Physician Primary Care Provider [phone] Encounter Details Date Type Department Care Team Description 04/25/2021 Records - [facility] CONVERSION Provider, [...] Name Priority Date/Time Associated Diagnosis Comme nts CTA CHEST WITH Routine 01/16/2009 12:00 AM Result s for this CONTRAST MANUAL LATHE OPERATOR procedure are i n the results section. documented in this encounter Results CTA Chest with Contrast (01/16/2009 12:00 AM MANUAL LATHE OPERATOR) Anatomical Region Laterality Modality Chest, SUBRAD IR PROCEDURE, UMP CT CTA, RAD CT Computed Tomography Specimen (Source) Anatomical Location Collection Method / Collectio n Time Received Time / Laterality Volume Narrative 01/16/2009 12:00 AM MANUAL LATHE OPERATOR See Historical Hospital Medical Record f or documentation Procedure Note Provider, Historical - 04/25/2021Formatt ing of this note might be different from the original. See Historical Hospital Medical Record f or documentation Historical Provider IMG CT ORDERABLES documented in this encounter Visit Diagnoses Not on filedocumented in this encounter Care Teams Warehouse Order Filler Relationship Specialty Start Date End Date No Ref-Primary, Physician PCP - General 01/14/16 documented as of this encounter
--- OUTSIDE RECORDS SUMMARY | 2022-07-13 07:48 | XMS_ITS | Encounter Summary ---
:1985 Author Organization [place] Address [address] [place] [address] Care Team Providers Name Role Phone No Ref-Primary, Physician Primary Care Provider [phone] Reason for Visit Reason Comments Derm Problem X 2 days. Possible cut in th e skin/soreness around the tailbone area due to prolonged sitting. Encounter Details Date Type Department Care Team Description 11/08/2017 Office Visit [facility] Lashawn Urias Decu bitus ulcer of [facility] sacral region, stage [place] [address] [facility] (Primary Dx) [address] [address] [phone] Social History Tobacco Use Types Packs/Day Years [...] Sign Reading Time Taken Comments Blood Pressure 120/80 11/08/2017 2:57 PM CAREER TECHNICAL SUPERVISOR Pulse 106 11/08/2017 2:57 PM CAREER TECHNICAL SUPERVISOR Temperature 36.9 ??C (98.5 ??F) 11/08/2017 2:57 PM CAREER TECHNICAL SUPERVISOR Respiratory Rate - - Oxygen Saturation 97% 11/08/2017 2:57 PM CAREER TECHNICAL SUPERVISOR Inhaled Oxygen Concentration - - Weight 119.3 kg (263 lb) 11/08/2017 2:57 PM CAREER TECHNICAL SUPERVISOR Height 165.1 cm (5' 5) 11/08/2017 2:57 PM CAREER TECHNICAL SUPERVISOR Body Mass Index 43.77 11/08/2017 2:57 PM CAREER TECHNICAL SUPERVISOR documented in this encounter Patient Instructions Patient InstructionsLashawn Urias MD - 11/08/2017 2:45 PM CST Pressure sore on sacrum. Recommend not sitting in couch or soft seating. If you have to sit in above, please sit on a pillow (so you don't sink in) and place a pillow or donut cushion (can get at [facility]) behind you, so you not applying pressure to sacral area. No creams or lotions to area - just keep clean and dry. Avoiding direct pressure should result in healing in the next several weeks. ER TECHNICAL SUPERVISOR documented in this encounter Progress Notes Lashawn Urias MD - 11/08/2017 2:45 PM CST SUBJECTIVE: HPI: Ileana Saul is a pleasant 32 year old female who presents with a sore on her bottom: - present for last week or so - painful to touch and with sitting - no bleeding or discharge - no swelling or warmth - no fevers or chills PMH significant for MO and recent ACL tear (10/06/17) Patient has been sitting on her couch most of the day, every day, since the injury. The medication, allergy, and problem lists have been reviewed and updated as appropriate. OBJECTIVE: BP 120/80 (BP Location: Left arm, Patient Position: Chair, Cuff Size: Adult Large) Pulse 106 Temp 98.5 ??F (36.9 ??C) (Oral) Ht 5' 5 (1.651 m) Wt 263 lb (119.3 kg) LMP 10/27/2017 (Exact Date) SpO2 97% BMI 43.77 kg/m2 Constitutional: well-appearing Integumentary: diffuse area of non-blanchable redness between upper buttocks, on sacrum, with midline superficial, vertical skin opening/cracking; no ulceration; area is tender to palpation; no warmth,fluctuance, induration, bleeding, or discharge ASSESSMENT/PLAN: (L89.151) Decubitus ulcer of sacral region, stage 1 (primary encounter diagnosis) Comment: due to prolonged, continuous couch sitting for last month due to ACL tear; MO likely contributing. Plan: - STOP sitting in couch or soft seating. - sit only in a supportive chair. - try to keep as active as possible in spite of her injury. - use a donut cushion around involved area when seated to take any/all pressure off that area. - keep area clean and dry - no topical Rx recommended at this time. - anticipate that healing will take 2-3 weeks. The instructions on the AVS were discussed and explained to the patient. Patient expressed understanding of instructions. (Chart documentation was completed, in part, with [employer] voice-recognition software. Even though reviewed, some grammatical, spelling, and word errors may remain.) Lashawn Urias MD [address] [address] T: [phone], F: [phone] ER TECHNICAL SUPERVISOR documented in this encounter Nursing Notes César Musa - 11/08/2017 2:45 PM CST Chief Complaint Patient presents with ??? Derm Problem X 2 days. Possible cut in the skin/soreness around the tailbone area due to prolonged sitting. Initial BP 120/80 (BP Location: Left arm, Patient Position: Chair, Cuff Size: Adult Large) Pulse 106 Temp 98.5 ??F (36.9 ??C) (Oral) Ht 5' 5 (1.651 m) Wt 263 lb (119.3 kg) LMP 10/27/2017 (Exact Date) SpO2 97% BMI 43.77 kg/m2 Estimated body mass index is 43.77 kg/(m^2) as calculated fromthe following: Height as of this encounter: 5' 5 (1.651 m). Weight as of this encounter: 263 lb (119.3 kg). Medication Reconciliation: melanie Lindsey MA ER TECHNICAL SUPERVISOR documented in this encounter Plan of Treatment Not on filedocumented as of this encounter Visit Diagnoses Diagnosis Decubitus ulcer of sacral region, stage 1 - Primary Pressure ulcer, lower back documented in this encounter Care Teams Delicatessen Department Manager Relationship Specialty Start Date End Date No Ref-Primary, Physician PCP - General 01/14/16 documented as of this encounter
--- OUTSIDE RECORDS SUMMARY | 2022-07-13 07:48 | XMS_ITS | Encounter Summary ---
:1985 Author Organization [place] Address [address] [place] [address] Care Team Providers Name Role Phone No Ref-Primary, Physician Primary Care Provider [phone] Reason for Visit Reason Comments Nausea & Vomiting Encounter Details Date Type Department Care Team Description 10/08/2017 Emergency [facility] Joel Braden and vomiting, [facility] Emergency MD [place] intractability of Dept [facility] vomiting not specified, [address] [place] unspecified vomiting [place], [place] [address] [place] [id number] [place] [address] [place], [place] [id number] (Wo rk) Social History Tobacco Use Types Packs/Day Years Used Date Never Smoker Smokeless Tobacco: Never Used Alcohol Use Standard Drinks/Week Comments No 0 (1 standard drink = 0.6 oz pure alcoho l) Sex Assigned at Date Recorded Not on file documented as of this encounter Last Filed Vital Signs Vital Sign Reading Time Taken Comments Blood Pressure 145/91 10/08/2017 1:52 PM MANAGER OF PRODUCT Pulse 101 10/08/2017 12:13 PM MANAGER OF PRODUCT Temperature 36.4 ??C (97.5 ??F) 10/08/2017 12:13 PM MANAGER OF PRODUCT Respiratory Rate 18 10/08/2017 12:13 PM MANAGER OF PRODUCT Oxygen Saturation 99% 10/08/2017 1:52 PM MANAGER OF PRODUCT Inhaled Oxygen Concentration - - Weight - - Height - - Body Mass Index - - documented in this encounter Discharge Instructions AttachmentsThe following attachments cannot be sent through Care Everywhere. VOMITING (6Y-ADULT) (AMHARIC)documented in this encounter Medications at Time of Discharge Medication Sig Dispensed Refills Start Date End Date NORTRIPTYLINE HCL PO Take 10 mg by mouth 0 At Bedtime ondansetron (ZOFRAN ODT) 4 Take 1 tablet (4 10 tablet 0 10/11/2017 MG ODT tab mg) by mouth every 8 hours as needed for nausea HYDROcodone-acetaminophen Take 1-2 tablets by 15 tablet 0 1 12/06/2016 11/04/2017 (NORCO) 5-325 MG per mouth every 4 hours tablet as needed for moderate to severe pain metoclopramide (REGLAN) 5 Take 1 tablet (5 30 tablet 0 12/2711/04/2017 MG tablet mg) by mouth 4 times daily as needed NO ACTIVE MEDICATIONS 0 09/2017 documented as of this encounter ED Notes Shreyas Orlando RN - 10/08/2017 1:54 PM CST Tolerating PO challenge. Still feeling 'queezy', but better and keeping crackers and water down. GER OF PRODUCT Shreyas Orlando RN - 10/08/2017 1:18 PM CST Initiated PO challenge with water and crackers. GER OF PRODUCT Mallika Barcenas RN - 10/08/2017 12:12 PM CST Put on hydrocodone for knee pain yesterday. Patient reports the hydrocodone is making her vomit. Last dose this morning. GER OF PRODUCT Joel Braden MD - 10/08/2017 12:09 PM CST History Chief Complaint: Nausea & Vomiting SATYA Saul is a 32 year old female who presents for evaluation of nausea and vomiting. The patient was seen in the ED 2 days ago for left knee pain after a slip and fall. X-ray was negative for fracture and based on exam, patient suffered probable medial collateral ligament sprain, though exam waslimited by pain. The patient was placed in a knee immobilizer and given Juli[place]own for pain. She reports she took the Hydrocodone yesterday and started to feel nauseous, but continued to take it every 4 hours as prescribed for pain control. The patient took it again this morning and started vomiting. She had multiple episodes of nonbloody emesis at home, prompting her to return to the ED. On arrival, the p atient notes nausea but denies any abdominal pain, fever, diarrhea, or other concerns. She still haspain in her left knee. She has an appointment with orthopedics on Saturday in 3 days. The patient doesnot want any other pain medications. Allergies: Penicillins Sulfa Medications: NORTRIPTYLINE HCL PO HYDROcodone-acetaminophen (NORCO) 5-325 MG per tablet Past Medical History: The patient does not have any past pertinent medical history. Past Surgical History: Appendectomy Family History: History reviewed. No pertinent family history. Social History: Smoking status: No Alcohol use: No Presents to the ED with her significant other Marital Status: Single [1] Review of Systems Constitutional: Negative for fever. Gastrointestinal: Positive for nausea and vomiting. Negative for abdominal pain and diarrhea. Musculoskeletal: Positive for arthralgias. All other systems reviewed and are negative. Physical Exam Patient Vitals for the past 24 hrs: BP Temp Temp src Pulse Heart Rate Resp SpO2 10/08/17 1352 (!) 145/91 - - - 86 - 99 % 10/08/17 1213 (!) 133/93 97.5 ??F (36.4 ??C) Temporal 101 - 18 100 % Physical Exam Constitutional: Appears well-developed and well-nourished. Alert. Conversant. Non toxic. HENT: Head: Atraumatic. Nose: Nose normal. Mouth/Throat: Oral mucosa is clear and moist. no trismus. Pharynx normal. Tonsils symmetric. No tonsillar enlargement, erythema, or exudate. Eyes: Conjunctivae normal. EOM normal. Pupils equal, round, and reactive to light. No scleral icterus. Neck: Normal range of motion. Neck supple. No tracheal deviation present. Cardiovascular: Normal rate, regular rhythm. No gallop. No friction rub. No murmur heard. Symmetric radial artery pulses Pulmonary/Chest: Effort normal. No stridor. No respiratory distress. No wheezes. No rales. No rhonchi . No tenderness. Abdominal: Soft. Bowel sounds normal. No distension. No mass. No tenderness. No rebound. No guarding. No CVA tenderness Musculoskeletal: Normal range of motion. No edema. No tenderness. No deformity left leg: wearing knee brace. Knee brace removed for exam. She has no redness or warmth for palpableeffusion of the knee at this time. It's quite tender anteriorly immediately. Range of motion is somewhat less than the day she is available only to flex to about 30??. She's quite tender so ligamentousexam for recheck is limited . Neurological: Alert and oriented to person, place, and time. Normal strength. CN II-VII intact. No sensory deficit. GCS eye subscore is 4. GCS verbal subscore is 5. GCS motor subscore is 6. Normal coordination Skin: Skin is warm and dry. No rash noted. No pallor. Normal capillary refill. Psychiatric: Normal mood. Normal affect. Emergency Department Course Interventions: 1232: Zofran 4 mg oral Emergency Department Course: Past medical records, nursing notes, and vitals reviewed. 1302: I performed an exam of the patient and obtained history, as documented above. Patient improved with Zofran and was able to tolerate PO in the ED. I rechecked the patient. Findings and plan explained to the Patient. Patient discharged home with instructions regarding supportive care, medications, and reasons to return. The importance of close follow-up was reviewed. Impression & Plan Medical Decision Making: Ileana Saul is a 32 year old female saw a couple of days ago with a left knee injury. She's been taking [place]own for her knee injury but that's been triggering some nausea and vomiting. Abdominal exam is very soft, nontender and benign. She's not having any fever or diarrhea. This point I'm pretty confident her nauseous medication induced. No evidence for surgical emergencies such as appendicitis, cholecystitis, bowel obstruction. I doubt that this represents a viral gastroenteritis. Clinicallyshe's well hydrated. I don't think his indication for labs or IV. We she receives (LVT and did feel somewhat better. She's now tolerating oral intake and without any further nausea or vomiting. She feels one of the she wants to go home. For her ongoing knee pain she's already schedule to see orthopedics. Shall remain in the knee brace until then. And she'll use ibuprofen and Tylenol for pain. She's declining any prescriptions for other opiates or Ultram due to the potential for G.I. side effects Diagnosis: ICD-10-CM 1. Nausea and vomiting, intractability of vomiting not specified, unspecified vomiting type R11.2 Disposition: Discharged to home Discharge Medications: Details ondansetron (ZOFRAN ODT) 4 MG ODT tab Take 1 tablet (4 mg) by mouth every 8 hours as needed for nausea, Disp-10 tablet, R-0, Local Print Mary Kristie 10/08/2017 [facility] EMERGENCY DEPARTMENT IMary, am serving as a scribe at 1:02 PM on 10/08/2017 to document services personally performed by Joel Braden MD based on my observations and the provider's statements to me. Joel Braden MD 10/08/171818 GER OF PRODUCT documented in this encounter Plan of Treatment Not on filedocumented as of this encounter Visit Diagnoses Diagnosis Nausea and vomiting, intractability of v omiting not specified, unspecified vomiting type documented in this encounter Administered Medications Inactive Administered Medications - up to 3 most recent administrations Medication Order MAR Action Action Date Dose Rate Site ondansetron (ZOFRAN-ODT) ODT tab 4 Given 10/08/2017 12:32 PM MANAGER OF PRODUCT 4 mg mg 4 mg, Oral, ONCE, On Sat10/08/17 at 1226, For 1 dose, With dry hands, peel back foil backing and gently remove tablet; do not push oral disintegrating tablet through foil backing; administer immediately on tongue and oral disintegrating tablet dissolves in seconds; then swallow with saliva; liquid not required. documented in this encounter Active and Recently Administered Medications Times are shown in MANAGER OF PRODUCT. Scheduled Medication Order 10/06/2017 10/07/2017 10/08/2017 ondansetron (ZOFRAN-ODT) ODT tab 4 mg (COMPLETED) 1232 (Given - Provider: Shreyas Orlando RN) 4 mg, Oral, ONCE, Sat10/08/17 at 1226, For 1 dose, With dry hands, peel back foil backing and gently remove tablet; do not push oral disintegrating tablet through foil backing; administer immediately o n tongue and oral disintegrating tablet dissolves in seconds; then swallow with saliva; liquid not required. documented in this encounter Care Teams Dairy Worker Relationship Specialty Start Date End Date No Ref-Primary, Physician PCP - General 01/14/16 documented as of this encounter
[2022-07-13 07:49] LABS: Slide Review Reflex No
--- OUTSIDE RECORDS SUMMARY | 2022-07-13 07:49 | XMS_ITS | Encounter Summary ---
:1985 [facility] Address [address] [place] [address] Care Team Providers Name Role Phone Unassigned, Provider Primary Care Provider Unavailable Encounter Details Date Type Department Care Team Description 07/09/2018 Ancillary Procedure [facility] Radiology PACS Provider, Foreign [address] [place] [address] [address] [place] [address] Social History Tobacco Use Types Packs/Day Years Used Date Smoking Tobacco: Never Alcohol Use Standard Drinks/Week Comments Yes 0 (1 standard drink = 0.6 oz pure alcoho l) Socially Alcohol Habits Answer Date Recorded How often do you have a drink containing alcohol? Not asked How many drinks containing alcohol do you have on a typical Not asked day when you are drinking? How often do you have six or more drinks on one occasion? No t asked Comment: Socially 11/09/2016 Sex Assigned at Date Recorded Not on file documented as of this encounter Plan of Treatment Not on filedocumented as of this encounter Visit Diagnoses Not on filedocumented in this encounter Care Teams Crew Scheduler Relationship Specialty Start Date End Date Unassigned, Provider PCP - General 01/11/08 [address] [place] [address] documented as of this encounter
--- OUTSIDE RECORDS SUMMARY | 2022-07-13 07:49 | XMS_ITS | Encounter Summary ---
:1985 [facility] Address [address] [address] Care Team Providers Name Role Phone Unassigned, Provider Primary Care Provider Unavailable Reason for Visit Procedure/Equipment (Routine) - Incomplete Specialty Diagnoses / Procedures Referred By Contact Refer red To Contact Procedures Provider, Foreign Images Foreign Image(S) MR Knee Lt [address] [place] [address] Referral ID Status Reason Start Date Expiration Date Visits V isits Requested Authorized [id number] Incomplete 02/16/2019 05/17/2020 1 1 Encounter Details Date Type Department Care Team Description 10/11/2017 Ancillary Procedure [facility] Radiology PACS Provider, [address] [address] [address] [place] [address] Social History Tobacco Use Types Packs/Day Years [...] Name Priority Date/Time Associated Diagnosis Comme nts FOREIGN IMAGE(S) MR Routine 10/11/2017 12:00 AM R esults for this KNEE LT ALUMINUM SIDING INSTALLER procedure are i n the results section. documented in this encounter Results Foreign Image(S) MR Knee Lt (10/11/2017 12:00 AM ALUMINUM SIDING INSTALLER) Specimen (Source) Anatomical Location Collection Method / Collectio n Time Received Time / Laterality Volume Narrative PN POCT - 02/16/2019 8:11 AM CDT These outside images have been uploaded into PACS. If the results were provided, they will be located in the pa arleennt's chart under the Media or Imaging tab. Foreign Images Provider RAD NON-REPORTABLES Performing Organization Address City/State/ZIP Code Phon e Number POCT PN POCT documented in this encounter Visit Diagnoses Not on filedocumented in this encounter Care Teams Salesforce Trainer Relationship Specialty Start Date End Date Unassigned, Provider PCP - General 01/11/[address] [place] [address] documented as of this encounter
--- OUTSIDE RECORDS SUMMARY | 2022-07-13 07:49 | XMS_ITS | Encounter Summary ---
:1985 Author Organization [facility] Address [address] [address] Care Team Providers Name Role Phone Unassigned, Provider Primary Care Provider Unavailable Reason for Visit Reason Onset Date Comments ABSENTEEISM, SCHOOL/WORK 01/14/2008 school slip Encounter Details Date Type Department Care Team Description 01/14/2008 Telephone [facility] Unassigned, ABSENTEEIS M, Medicine Provider SCHOOL/WORK (school [address] slip) [place] [address] [place], [place] [phone] Social History Tobacco Use Types Packs/Day Years Used Date Smoking Tobacco: Never Assessed Sex Assigned at Date Recorded Not on file documented as of this encounter Nursing Notes Carrie Orr - 01/14/2008 3:34 PM CST Seen in urgent care on thursday 01/11 Per patient in urgent care told her she needed to rest , she states he recommended she not go back to college til better Patient went back to college took meds she was prescribed slept all day 01/11 and 01/12 Missed a test on 01/12 Needs a letter by doctor stating she was ill and unable to do test due to illness Wonders if is willing to email this to her - professor is requesting email from clinic as proof [email or web address] She will check and see if she can locate fax machine so can get official letter on letterhead Letter read to patient approved and mailed to patient CONTROL SUPERVISOR Charmaine Diamond - 01/14/2008 1:49 PM CST Patient would like to speak to {nurse Name of patient's provider: unassinged Question regarding: School slip Summarize the patient's question or concern: pt.was seen in urgentcare on 01/11/08 and needs a school Slip she would like to speak with a nurse please advise. Thanks, Charmaine Diamond CONTROL SUPERVISOR documented in this encounter Plan of Treatment Not on filedocumented as of this encounter Visit Diagnoses Not on filedocumented in this encounter Care Teams Lead Front End Developer Relationship Specialty Start Date End Date Unassigned, Provider PCP - General 01/11/[address] [place] [id number] documented as of this encounter
--- OUTSIDE RECORDS SUMMARY | 2022-07-13 07:49 | XMS_ITS | Encounter Summary ---
:1985 Author Organization [facility] Social Address [address], [place] [address] Care Team Providers Name Role Phone Unassigned, Provider Primary Care Provider Unavailable Reason for Referral Procedure/Equipment (Routine) - Incomplete Specialty Diagnoses / Procedures Referred By Contact Refer red To Contact Diagnoses Leg swelling Rehan Parkinson MD Procedures US VENOUS LEFT LOWER EXTREM DOPPLER [address] [place] [address] Referral ID Status Reason Start Date Expiration Date Visits V isits Requested Authorized [id number] Incomplete 02/24/2019 05/25/2020 1 1 Reason for Visit Reason Comments MRI Results Encounter Details Date Type Department Care Team Description 02/19/2019 Telephone [facility] Rehan Camargo MD MRI Results CENTER [address] [place] [address] [place] [address] [phone] Social History Tobacco Use Types Packs/Day Years Used Date Smoking Tobacco: Never Smokeless Tobacco: Never Alcohol Use Standard Drinks/Week Comments [...] on file documented as of this encounter Progress Notes Rehan Parkinson MD - 02/24/2019 9:06 AM CDT Addended by: REHAN PARKINSON on: 02/24/2019 09:06 AM Modules accepted: Orders documented in this encounter Nursing Notes Cherrie Loaiza - 02/24/2019 9:27 AM CDT I called the patient and informed her that the [facility] [place] will do a doppler Ultrasound on her. I provided a scheduling number for her to call ([phone]). I informed her that when she calls she need to tell them she needs an ultrasound for concern of a DVT. I also informed her to tell the physicians that although they may attempt to ultrasound her calf, her previous providers are concerned about a proximal DVT in her hamstring and that her MRI is accessible on her chart. She stated understanding and would relay the message to them. She had no further questions and will call us back about her results. Cherrie Loaiza, [facility] 02/24/2019, 9:31 AM Rehan Parkinson MD - 02/24/2019 8:12 AM CDT Returned patient call. She states that [facility] wanted her to get a duplex US due to her LLE swelling from calf to ankle. She says this has been present ever since her ACL injury, before her ACL surgery.She denies any calf pain, redness, or warmth. No chest pain or shortness of breath. She does have pain behind the knee and by the ankle. I explained that given my exam of her in clinic and her description of symptoms today, I think that the likelihood that she has a DVT is low. However, if there was something in her exam with [facility] that concerned them enough to recommend a duplex to rule out DVT, it is relatively low risk to get this to rule out a potentially dangerous problem. She would like to go forward with duplex but wants to transfer care to [facility], and therefore would like it ordered at a location. I placed order for LLE Duplex at /. My clinic staff will call her to give scheduling information. I will call her with results. Rehan Parkinson MD Rehan Parkinson MD - 02/23/2019 5:13 PM CDT Attempted to return patient call and went to voicemail. Left message stating that I will re-attempt call tomorrow. Rehan Parkinson MD Amy Quinteros RN - 02/23/2019 5:00 PM CDT Patient calling stating that she received a call from [facility] regarding her MRI also. They are recommending she have an ultrasound done to r/o DVT r/t swelling. Patient states that she has swelling in the hamstring area of the leg. She has pain and tenderness that shoots down from her hamstring to ankle. No redness or fevers. Also soreness in the ankle. She plans on continuing care with [facility], wondering if Dr. Parkinson has any concerns and recommends an ultrasound. Please advise. Thank you. Rehan Parkinson MD - 02/19/2019 2:25 PM CDT Called patient with results of MRI completed at [facility] 02/17. Explained that this looks quite similarto her previous MRI. No worsening of lateral meniscus tear, also no interval healing or change in appearance. I still recommend initiating PT to work on restoring her strength back to pre-injury state.Keep plan for follow-up in 8 weeks. All patient questions answered. documented in this encounter Plan of Treatment Not on filedocumented as of this encounter Results US VENOUS LEFT LOWER EXTREM DOPPLER (02/24/2019 1:07 PM CDT) Anatomical Region Laterality Modality Vascular, Leg Ultrasound Specimen (Source) Anatomical Collection Method Collection Time Re ceived Time Location / / Volume Laterality 02/24/2019 1:07 PM CDT Narrative 02/24/2019 2:10 PM CDT EXAM: US VENOUS LEFT LOWER EXTREM DOPPLER LOCATION: [facility] DATE/TIME: 02/24/2019 1:07 PM INDICATION: Left lower extremity swellin g, pain - rule out dvt COMPARISON: None. TECHNIQUE: Routine exam without and with compression, augmentation and duplex utilizing 2D madrigal-scale imaging, Doppler interrogation with color-flow and spectral waveform analysis of the left leg and the right common femoral vein. FINDINGS: The left common femoral, femor al, popliteal, and segmentally visualized calf veins are patent demonstrating normal compressibility and augmentation. The left greater saphenous vein is patent a s visualized. The right common femoral v ein is patent at the groin. No popliteal cyst is seen. Incidental duplicated left femoral vein at the mid thigh level. CONCLUSION: 1. ??No evidence for venous thrombosis i n the left lower extremity. Procedure Note Narciso Ruiz MD - 02/24/2019Forma tting of this note might be different from the original. EXAM: US VENOUS LEFT LOWER EXTREM DOPPLE R LOCATION: [facility] DATE/TIME: 02/24/2019 1:07 PM INDICATION: Left lower extremity swellin g, pain - rule out dvt COMPARISON: None. TECHNIQUE: Routine exam without and with compression, augmentation and duplex utilizing 2D madrigal-scale imaging, Doppler interrogation with color-flow and spectral waveform analysis of the left leg and the right common femoral vein. FINDINGS: The left common femoral, femor al, popliteal, and segmentally visualized calf veins are patent demonstrating normal compressibility and augmentation. The left greater saphenous vein is patent as visualized. The right common femoral vein is patent at t he groin. No popliteal cyst is seen. Incidental duplicated left femoral vein at the mid thigh level. CONCLUSION: 1. No evidence for venous thrombosis in the left lower extremity. Rehan Parkinson MD [facility] US documented in this encounter Visit Diagnoses Diagnosis Leg swelling - Primary Swelling of limb Leg swelling Swelling of limb documented in this encounter Care Teams Sales Enablement Manager Relationship Specialty Start Date End Date Unassigned, Provider PCP - General 01/11/[address] [place] [id number] documented as of this encounter
--- OUTSIDE RECORDS SUMMARY | 2022-07-13 07:49 | XMS_ITS | Encounter Summary ---
:1985 Author Organization [facility] Address [address] [place] [address] Care Team Providers Name Role Phone Unassigned, Provider Primary Care Provider Unavailable Reason for Visit Reason Comments BURNING, VAGINAL x1 wk Vaginal Discharge x1 wk Encounter Details Date Type Department Care Team Description 03/26/2016 Office Visit [place] [facility] Ana Acosta, Vag inal discharge (Primary Dx); Practice DO examination or test, unconfirmed; [address] Routine screening for STI (s exually transmitted infection) [place], [place] [address] [phone] [place] [address] Social History Tobacco Use Types Packs/Day Years Used Date Smoking Tobacco: Never Alcohol Use Standard Drinks/Week Comments Yes 0 (1 standard drink = 0.6 oz pure alcoho l) Sex Assigned at Date Recorded Not on file documented as of this encounter Last Filed Vital Signs Vital Sign Reading Time Taken Comments Blood Pressure 118/83 03/26/2016 2:38 PM CDT Pulse 81 03/26/2016 2:38 PM CDT Temperature - - Respiratory Rate 17 03/26/2016 2:38 PM CDT Oxygen Saturation - - Inhaled Oxygen Concentration - - Weight 112.9 kg (248 lb 12.8 oz) 03/26/2016 2:38 PM CDT Height - - Body Mass Index - - documented in this encounter Patient Instructions Patient InstructionsAna Acosta MD - 03/26/2016 2:51 PM CDT Vaginitis What is vaginitis? Vaginitis is infection or inflammation of the vagina. It can cause itching and burning, a change in vaginal discharge, and sometimes pain during sex. What causes vaginitis? Vaginitis may be caused by bacteria, yeast, or other germs. Bath products, douches, and spermicides also can irritate the vagina and cause itching and discomfort. The three most common types of vaginitis, and their causes, are: ?? Yeast infection. A healthy vagina normally contains a small number of yeast cells, along with a certain number of bacteria. Normally there aren't enough of the yeast cells to cause problems. But sometimes something happens to the vagina that lets the yeast cells multiply quickly and take over, causing symptoms. Taking antibiotics sometimes causes this. Being , taking control pills that contain estrogen, or having hormone replacement therapy can also cause it. So can some health problems, like diabetes or HIV infection. ?? Bacterial vaginosis. This happens when some of the bacteria normally found in the vagina are ableto multiply quickly and take over, causing symptoms. Experts are not sure what causes this. But certain things make it more likely to happen. These include having more than one sex partner, having a female sex partner, having a sexually transmitted disease, using an IUD for control, and douching. ?? Trichomoniasis. This is a sexually transmitted disease caused by a parasite. You get it by havingsex with someone who has it. It is commonly called trich (say trick). Another type of vaginitis is atrophic vaginitis. This is an irritation of the vagina caused by thinning tissues and less moisture in the vaginal talley. This often occurs with menopause as a result of the decrease in the hormone estrogen. Surgery to remove the ovaries can have the same effect. What are the symptoms? Symptoms of vaginitis may include: ?? A change in your normal vaginal discharge, including madrigal, green, or yellow discharge. ?? Vaginal redness, swelling, itching, or pain. ?? Vaginal odor. ?? Burning when you urinate. ?? Pain or bleeding when you have sex. How is vaginitis diagnosed? Your doctor will check your vagina for redness and swelling and will take a sample of vaginal discharge. The sample can be tested in a lab to see what is causing the problem. How is it treated? If you are , talk with your doctor if you have any symptoms. Some problems can affect your , so it is important to talk with your doctor and get the right treatment. ?? Yeast infection: If you have had a yeast infection before and can recognize the symptoms, and youaren't , you can treat yourself at home with medicines you can buy without a prescription. You can use an antifungal cream or suppository that you put into your vagina. Or your doctor may prescribe antifungal tablets that you swallow. ?? Bacterial vaginosis: Doctors usually use antibiotics to treat this problem. It is usually a mild problem. But it can lead to more serious problems, so it's a good idea to see your doctor and get treatment. ?? Trichomoniasis: This disease is also treated with antibiotics. Both you and your sex partner needtreatment. ?? Atrophic vaginitis: This usually is treated with estrogen creams or tablets. How can you prevent vaginitis? ?? Do not take antibiotics unless you really need to. ?? Do not douche. ?? Do not use feminine deodorant sprays or other perfumed products in or around your vagina. ?? During your period, change tampons at least 3 times a day, or switch between tampons and pads. Don't leave tampons in for more than 8 hours. And be sure to remove the last tampon you use. ?? Use a condom during sex. Limit your number of sex partners. For more information, visit the [employer] on Listen Edition ??2007 [employer]. Adapted and reprinted with permission from the [employer]?? Knowledgebase product. This information does not replace the advice of a doctor. [employer] disclaims any warranty or liability for your use of this information. Test You will have a urine test. You can get your test results in the way you told us you prefer. This can be online, by phone or by mail. If your test results are positive and if any of the items listed below apply to you, call your primary clinic or obstetrics clinic and ask to speak with a nurse. ??? History of abdominal pain or cramping for more than 3 hours. ??? Vaginal spotting or bleeding since your last your period. ??? Previous ectopic . ??? You have an IUD. ??? You have had your tubes tied. ??? You have had pelvic inflammatory disease. ??? Your doctor found something abnormal with your fallopian tubes. ??? You are taking medications that you are not sure are safe to take while . ??? You have tried to get for more than one year without fertility treatment. If you have any questions or concerns, you may call the [facility] nurses at [phone]. The following [facility] provide obstetric services: [place] [phone] [place] [phone] [place] [phone] [place] [phone] [place] [phone] [facility] [phone] [facility] [phone] [place] [phone] [place] [phone] [place] [phone] [place] [phone] [place] [phone] [place] [phone] [place] [phone] documented in this encounter Progress Notes Ana Acosta MD - 03/27/2016 3:56 PM CDT Quick Note: Discussed at visit. Ana Acosta DO 03/27/2016, 3:56 PM Ana Acosta MD - 03/27/2016 3:55 PM CDT Quick Note: Notation added to OPS Your chlamydia and gonorrhea screening tests are negative. Ana Acosta DO 03/27/2016, 3:55 PM Ana Acosta MD - 03/26/2016 2:48 PM CDT SUBJECTIVE Ileana Diehl is a 30 y.o. old female who is a new patient who presents with: Chief Complaint Patient presents with ??? BURNING, VAGINAL x1 wk ??? Vaginal Discharge x1 wk Over the last few weeks and tried OTC yeast treatment twice without resolution Recently started OCP two months ago Denies likelihood of or STI Sexual history: one male partner and denies partner has other partners Review of systems: without chest pain or shortness of breath OBJECTIVE BP 118/83 mmHg Pulse 81 Resp 17 Wt 248 lb 12.8 oz (112.855 kg) General appearance: alert, in no distress Neck: supple Respirations: unlabored Heart: regular : Female on speculum exam vaginal discharge present, described as white, creamy and vaginal erythema noted RESULTS Recent Results (from the past 336 hour(s)) TEST (URINE) Collection Time: 03/26/16 2:54 PM Result Value Ref Range HCG, URINE Negative Negative = <25 mIU/ml If is suspected, suggest repeat in 48-72 hours or confirm results with a quantitative hCG test. WET PREP, VAGINAL Collection Time: 03/26/16 3:28 PM Result Value Ref Range CLUE CELLS No Clue Cells Seen NCLUE TRICHOMONAS No Trichomonas Seen NTRIC YEAST No Yeast Found YN PH 5.0 (H) 3.5 - 4.5 ASSESSMENT/PLAN Diagnoses and all orders for this visit: Vaginal discharge: Discussed results equivocal but after OTC treatment and given exam and symptoms plan to treat for yeast with course of oral medication. Orders: - WET PREP, VAGINAL - fluconazole (DIFLUCAN) 150 MG tablet Discussed side effects of medication Please see the patient instructions for additional counseling and precautions given Follow-up if persistent or worsening symptoms examination or test, unconfirmed Orders: - TEST (URINE) [0195] Routine screening for STI (sexually transmitted infection) Orders: - CHLAMYDIA & GC Ana Acosta DO 03/26/2016, 4:46 PM documented in this encounter Plan of Treatment Not on filedocumented as of this encounter Procedures Procedure Name Priority Date/Time Associated Diagnosis Comme nts VAGINAL WET PREP Waiting 03/26/2016 3:28 PM Vaginal discharge Results for this CDT procedure are i n the results section. CHLAMYDIA & GC (14 Routine 03/26/2016 3:21 PM Routine screenin g Results for this YEARS AND OLDER) CDT for STI (sexually proced ure are in transmitted the results infection) section. documented in this encounter Results (ABNORMAL) WET PREP, VAGINAL (03/26/2016 3:28 PM CDT) [facility] Me Later Method Time Signature Clue Cells No Clue Cells NCLUE [facility] Trichomonas No Trichomonas NTRIC [facility] Yeast No Yeast Found YN [facility] pH 5.0 (H) 3.5 - 4.5 [facility] Specimen Anatomical Collection Method Collection Time Receive d Time (Source) Location / / Volume Laterality 03/26/2016 3:28 PM 6 3:38 CDT PM CDT Narrative [facility] - 03/26/2016 3:50 PM C DT Performed at [facility], [address] [place] [id number] Ana Acosta DO LAB_1 Performing Organization Address City/[facility] Phon e Number [facility] [phone] CHLAMYDIA & GC (03/26/2016 3:21 PM CDT) [facility] Bill Me Later Method Time Signature Source Endocervical [facility] Chlamydia Negative NEG [facility] Comment: Test Performed by Treatment Manager Mediated Amplification GC (N. gonorrhoeae) Negative NEG [facility] Comment: Test Performed by Treatment Manager Mediated Amplification Specimen Anatomical Collection Method Collection Time Receive d Time (Source) Location / / Volume Laterality 03/26/2016 3:21 PM 6 3:26 CDT PM CDT Narrative [facility] - 03/27/2016 2:09 PM C DT Performed at [facility], [address] [place] [address] ??[id number] Ana Acosta DO LAB_1 Performing Organization Address City/[facility] Phon e Number [facility] [phone] TEST (URINE) [0195] (03/26/2016 2:54 PM CDT) [facility] Bill Me Later Method Time Signature HCG, Urine Negative [facility] Negative = <25 mIU/ml LABORATO RAINER If is suspected, suggest repeat in 48-72 hours or confirm results with a quantitative hCG test. Specimen Anatomical Collection Method Collection Time Receive d Time (Source) Location / / Volume Laterality Urine specimen 03/26/2016 2:54 PM 016 2:55 (specimen) CDT PM CDT Narrative [facility] - 03/26/2016 3:19 PM C DT Performed at [facility], [address] [place] [address] Ana Acosta DO LAB_1 Performing Organization Address City/State/ZIP Code Phon e Number [facility] [phone] documented in this encounter Visit Diagnoses Diagnosis Vaginal discharge - Primary Leukorrhea, not specified as infective examination or test, unconfirmed Routine screening for STI (sexually banks smitted infection) Screening examination for venereal disea se examination or test, unconfirmed documented in this encounter Care Teams Inspector Air Carrier Relationship Specialty Start Date End Date Unassigned, Provider PCP - General 01/11/[address] [place] [id number] documented as of this encounter
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
--- OUTSIDE RECORDS SUMMARY | 2022-07-13 07:49 | XMS_ITS | Encounter Summary ---
:1985 Author Organization [facility] Address [address] [place] [address] Care Team Providers Name Role Phone Unassigned, Provider Primary Care Provider Unavailable Reason for Visit Reason Comments Knee Problem Encounter Details Date Type Department Care Team Description 03/18/2019 Office Visit [facility] Rose Leger, PT Chronic pain of left knee (Primary Dx); Center, Physical [address] Decre ased strength; Therapy W Muscle tightness [address] [place], [place] [address]. [address] [place], [place] [address] [phone] Social History Tobacco Use Types Packs/Day Years [...] documented as of this encounter Progress Notes Rose Leger, PT - 03/18/2019 8:00 AM CDT [facility] Physical Therapy Daily Note Visit Number: 3 Medica ?? Initial Certification Period: 02/23/2019 to 05/24/19 Referring Provider: Angela Spring MD Diagnosis: Left knee pain, left ACL reconstruction with hamstring graft and medial meniscus repair 11/2017 Orders: Evaluate & treat Precautions/Contraindications: none Date of Onset: 11/2017 Standardized Functional Score: PT - Musculoskeletal - Knee Knee Outcome Survey - ADL (0-100%, 100 being best): 52 Knee Outcome Survey - Sport (0-100%, 100% being best): 42 ?? History: Pt is s/p L ACL reconstruction with hamstring autograft 11/28/17. She has still been having pain since surgery and her pain has not resolved. She did PT and it sounds like they didn't do much strengthening with her. She has pain with prolonged walking, boxing, stairs. She is always painful. Shehas been working on weight loss and would like to keep doing boxing workouts if she is able to. She is also starting to have left achilles tendon pain since starting her workouts. Method of Injury: ACL tear and surgery a year ago Functional Limitations: Walking, standing, stairs, working out Patient???s Therapy Goals: No pain and workout without pain SUBJECTIVE: Pain: 03/04 Functional Status: Increased pain with working out Patient Report: Pt reports that she is about the same, has been doing the exercises. Was sore and swollen after the BFR last session. OBJECTIVE: Today???s Findings: Observation/Gait: Slight antalgic gait after sitting Edema: Circumference: left knee: 6 cm above patella, 62 cm Right knee: 6 cm above patella, 58.5 cm ROM ([id number]-wju-kxot): 0-135 Flexibility: Tight quad, adductor, ITB and hamstring on left Strength: Quad set: painful, seated knee extension 5/5 with pain in patellar tendon Glut med and max 4/5 on left, 5/5 on right SLR x 10 with fatigue, but no knee pain Palpation: Very tender left patellar tendon Proprioception: Single leg stance: hip drop and knee discomfort Functional Tests: Double leg squat: painful but able to perform with decent form and no pain with band around knees TREATMENT TODAY: Therapeutic Exercise (CPT 81676) x 10 minutes: Access Code: [email or web address] SLR 2 x 15 Leg press: 25# x 15-double, single leg 10# x 10 x 3 Single leg heel raise x 10 x 2 HEP: Seated Isometric Knee Extension - 5 reps - 45 sec hold-changed to 20 sec hold Quadriceps Mobilization with Foam Roll Adductor Mobilization with Foam Roll Side Plank on Knees - 2 reps - 15 sec hold Clamshells 3 x 10-cues for correct technique Neuromuscular re-education x 20 min Bridges x 20 Single leg bridge x 10 x 3 Squats x 15 with green band around knees Side stepping with green band-length of mirror x 4 Game ready x 15 min, moderate pressure Timed Code Treatment Minutes: 30 Total Treatment Minutes: 45 ASSESSMENT: Fatigued with glut and quad work. Some patellar tendon pain with exercises, but pain went away afterexercise was done. PLAN: Start patient on bike next session. Glut and quad strength. EXPECTED FUNCTIONAL OUTCOMES/GOALS: HEP/Independent Management: Demonstrate independence with HEP and self- management following each treatment session ADL's: Independently perform ADL's daily with ease in 2-4 weeks. Ambulation: Ambulate unlimited distances with minimal to no symptoms/limp in 6-8 weeks. Ascend/descend stairs independently with reciprocal pattern with minimal to no symptoms and improvedlower extremity alignment in 6-8 weeks. Sports/Leisure: Able to complete a boxing class without needing to modify secondary to left knee pain in 8-10 weeks Therapist: MAITE Dumont 8:10 AM 03/18/2019 documented in this encounter Plan of Treatment Not on filedocumented as of this encounter Visit Diagnoses Diagnosis Chronic pain of left knee - Primary Pain in joint, lower leg Decreased strength Muscle weakness (generalized) Muscle tightness Unspecified disorder of muscle, ligament , and fascia documented in this encounter Care Teams Auto Parts Clerk Relationship Specialty Start Date End Date Unassigned, Provider PCP - General 01/11/[address] [place] [id number] documented as of this encounter
--- OUTSIDE RECORDS SUMMARY | 2022-07-13 07:49 | XMS_ITS | Encounter Summary ---
:1985 Author Organization [facility] Address [address], [place] [address] Care Team Providers Name Role Phone Unassigned, Provider Primary Care Provider Unavailable Reason for Visit Procedure/Equipment (Routine) - Incomplete Specialty Diagnoses / Procedures Referred By Contact Refer red To Contact Procedures Provider, Foreign Images Foreign Image(S) XR knee Lt [address] [place] [address] Referral ID Status Reason Start Date Expiration Date Visits V isits Requested Authorized [id number] Incomplete 02/16/2019 05/17/2020 1 1 Encounter Details Date Type Department Care Team Description 10/15/2017 Ancillary Procedure [facility] PACS Provider, [address] [place] [id number] [address] [place] [address] Social History Tobacco Use Types Packs/Day Years [...] Date/Time Associated Diagnosis Comme nts FOREIGN IMAGE(S) XR Routine 10/15/2017 12:00 AM R esults for this KNEE LT AGRICULTURAL SALES REPRESENTATIVE procedure are i n the results section. documented in this encounter Results Foreign Image(S) XR knee Lt (10/15/2017 12:00 AM AGRICULTURAL SALES REPRESENTATIVE) Specimen (Source) Anatomical Location Collection Method / Collectio n Time Received Time / Laterality Volume Narrative PN POCT - 02/16/2019 8:12 AM CDT These outside images have been uploaded into PACS. If the results were provided, they will be located in the pa arleennt's chart under the Media or Imaging tab. Foreign Images Provider RAD NON-REPORTABLES Performing Organization Address City/State/ZIP Code Phon e Number POCT PN POCT documented in this encounter Visit Diagnoses Not on filedocumented in this encounter Care Teams Medical Facilities Section Director Relationship Specialty Start Date End Date Unassigned, Provider PCP - General 01/11/[address] [place] [id number] documented as of this encounter
--- OUTSIDE RECORDS SUMMARY | 2022-07-13 07:49 | XMS_ITS | Encounter Summary ---
:1985 Author Organization [facility] Address [address] [place] [address] Care Team Providers Name Role Phone Unassigned, Provider Primary Care Provider Unavailable Reason for Visit Reason Onset Date Comments ERRONEOUS ENTRY 06/17/2008 medication questions Encounter Details Date Type Department Care Team Description 06/17/2008 [facility] Unassigned, ERRONEOUS ENTRY Medicine Provider (medication questions) [address] [place] [address] [place], [place] [phone] Social History Tobacco Use Types Packs/Day Years Used Date Smoking Tobacco: Never Assessed Sex Assigned at Date Recorded Not on file documented as of this encounter Plan of Treatment Not on filedocumented as of this encounter Visit Diagnoses Not on filedocumented in this encounter Care Teams Buckle Sewer Machine Relationship Specialty Start Date End Date Unassigned, Provider PCP - General 01/11/08 [address] [place] [address] documented as of this encounter
--- OUTSIDE RECORDS SUMMARY | 2022-07-13 07:49 | XMS_ITS | Encounter Summary ---
:1985 Author Organization [facility] Address [address] [place] [address] Care Team Providers Name Role Phone Unassigned, Provider Primary Care Provider Unavailable Encounter Details Date Type Department Care Team Description 03/18/2019 Notes/Orders [facility], Rose Leger, PT Physical Therapy [address] [place] [address] [place], [place] [address] [phone] Social History Tobacco Use Types Packs/Day Years [...] Progress Notes Rose Leger, PT - 03/18/2019 11:59 PM CDT [facility] DISCHARGE NOTE Ileana Diehl has not attended physical therapy since last documented visit. There are no further visits scheduled at this time and Ileana Diehl is currently considered discharged from physical therapy. Unable to assess current level of function and goals due to unexpected discharge because of failure to schedule/attend recommended appointments. Please see previous visit documentation of status at last treatment. Rose Leger, MPT documented in this encounter Plan of Treatment Not on filedocumented as of this encounter Visit Diagnoses Not on filedocumented in this encounter Care Teams Sales Representative Gas Service Relationship Specialty Start Date End Date Unassigned, Provider PCP - General 01/11/[address] [place] [id number] documented as of this encounter
--- OUTSIDE RECORDS SUMMARY | 2022-07-13 07:49 | XMS_ITS | Encounter Summary ---
:1985 Author Organization [facility] Address [address] [place] [address] Care Team Providers Name Role Phone Unassigned, Provider Primary Care Provider Unavailable Reason for Visit Reason Comments Knee Problem Therapies (Routine) - Closed Specialty Diagnoses / Procedures Referred By Contact Refer red To Contact Diagnoses Chronic pain of left knee S/P ACL reconstruction Angela Spring MD [address] [place] [address] Referral ID Status Reason Start Date Expiration Date Visits Requ ested Visits Authorized [id number] Closed 02/16/2019 04/17/2019 1 1 Encounter Details Date Type Department Care Team Description 02/23/2019 Initial Consult [facility] Rose Leger, Chroni c pain of left knee (Primary Dx); Center, Physical PT Decreased strength; Therapy [address] Muscle tightness [address] [place] [phone] Social History Tobacco Use Types Packs/Day Years [...] encounter Progress Notes Rose Leger, PT - 02/23/2019 8:00 AM CDT Physical Therapy Knee Evaluation/Plan of Care Visit Number: 1 Medica Initial Certification Period: 02/23/2019 to 05/24/19 Referring Provider: Angela Spring MD Diagnosis: Left knee pain, left ACL reconstruction 11/2017 Orders: Evaluate & treat Precautions/Contraindications: none Date of Onset: 11/2017 Standardized Functional Score: PT - Musculoskeletal - Knee Knee Outcome Survey - ADL (0-100%, 100 being best): 52 Knee Outcome Survey - Sport (0-100%, 100% being best): 42 History: Pt is s/p L ACL reconstruction [...] No pain and workout without pain SUBJECTIVE: Pain Ratin-7/10 Falls in the Past Year: No. Past Medical History: See EMR for details regarding past medical history, medications and drug allergies. History pertinent to therapy includes left knee ACL reconstruction with hamstring autograft 11/28/17. Review of Systems: Denies fever, chills, night sweats, unrelenting night pain, unexplained weight loss, bowel/bladder changes, saddle sensation changes Past Medical History: Diagnosis Date ??? Back pain 07/01/14 ??? Depression ([facility]) ??? Lateral meniscal tear 04/16/11 ??? Pap smear abnormality of cervix last week Past Surgical History: Procedure Laterality Date ??? HX APPENDECTOMY ??? KNEE SURGERY Left 2018 OBJECTIVE: General: Mood, orientation, behavior were appropriate. Patient was alert and oriented. Observation/Gait: Slight antalgic gait after sitting Edema: Circumference: left knee: 6 cm above patella, 62 cm Right knee: 6 cm above patella, 58.5 cm ROM (aaritcqdy-adx-qziy): 0-135 Joint mobility: Patellar: 1-2 quadrants Flexibility: Tight quad, adductor, ITB and hamstring on left Low Back/SI Screen: - Neurological Screen: Not performed Strength: Quad set: painful, seated knee extension 5/5 with pain in patellar tendon Glut med and max 4/5 on left, 5/5 on right Palpation: Very tender left patellar tendon, medial fat pad, adductor, quad and distal ITB Special Tests (+ is a positive finding, - is a negative finding): NT Proprioception: Single leg stance: hip drop and knee discomfort Functional Tests: Double leg squat: painful but able to perform with decent for TREATMENT TODAY: Physical Therapy Evaluation (CPT 47965): An evaluation was performed. The patient was determined to have moderate complexity based on history, examination, clinical presentation of the patient and the PT's clinical decision making. The patient was educated on the condition, planned therapy intervention and the expectations from treatment. Goals were a collaborative effort of the therapist and patient. Therapeutic Exercise (CPT 17480) x 25 minutes: education: exam findings, PT POC. Discussion of healing tendon and tendinosis and newest research Access Code: [email or web address] Seated Isometric Knee Extension - 5 reps - 45 sec hold - 1x daily Supine Bridge - 20 reps - 1x daily Beginner Clam - 10 reps - 3 sets - 1x daily Side Plank on Knees - 2 reps - 15 sec hold - 1x daily Quadriceps Mobilization with Foam Roll - 1x daily Adductor Mobilization with Foam Roll - 1x daily Also instructed in self quad release with massage stick Neuromuscular re-education (CPT 73778) x 10 minutes: Marui taping: Cover roll and then Leukotape applied for inferior fat pad release Instructed to take tape off if irritation should occur. Test/retest Double leg squat: pre: 3/10, post: 0/10 Pt also reporting that the achiness in the knee is gone with tape Timed Code Treatment Minutes: 35 Total Treatment Minutes: 60 Plan for next treatment session: Review HEP, assess if taping helpful, manual therapy to quad to help reduce symptoms, progress load on patellar tendon if able, progress glut strength, start isometric for achilles Education/Handouts: Diagnosis Education Response to treatment: Decreased pain, Good understanding of HEP ASSESSMENT: Therapist Impression: Pt presents to PT today with left knee pain s/p L ACL reconstruction 11/2017. She is now presenting with an under-rehabbed left knee, patellar tendonitis, achilles tendonitis, decreased quad and glut strength and very tight quad, adductor and ITB. Pt is appropriate for skilled PT to address impairments to return to prior level of function. Barriers to Learning: none Rehab Prognosis: Good PLAN: Planned Intervention/Education: Evaluation, Re-Evaluation, Education, Therapeutic Exercise, Manual Therapy, Neuromuscular Re-education, Self Care/Home Management, Gait Training, Therapeutic Activities,Ice, Vasopneumatic Compression PT Frequency/Duration: 1 x/week for 8-10 weeks for a total of 8-10 visits Discharge Plan: Goal achievement, goal achievement with home exercise program or if progress plateaus. Informed Consent: Risks, benefits and alternatives to treatment have been explained. Patient and/or family in agreement with care plan. EXPECTED FUNCTIONAL OUTCOMES/GOALS: HEP/Independent Management: Demonstrate independence [...] to left knee pain in 8-10 weeks Evaluation and Plan of Care completed by: MAITE Dumont 10:07 AM 02/23/2019 The paper roll machine operator is completed by the therapist and the referring clinician's electronic signature certifies medical necessity for the plan above. Associated attestation - Angela Spring MD - 02/23/2019 4:53 PM CDT Agree with PT plan of care as detailed above by Rose Spring MD documented in this encounter Plan of Treatment Scheduled Referrals Name Type Priority Associated Diagnoses Order S main campus medical center Physical Therapy Referral Routine Chronic pain of left knee Ordered: 02/16/2019 S/P ACL reconstruction documented as of this encounter Visit Diagnoses Diagnosis Chronic pain of left knee - Primary Pain in joint, lower leg Decreased strength Muscle weakness (generalized) Muscle tightness Unspecified disorder of muscle, ligament , and fascia documented in this encounter Care Teams Aircraft Maintenance Engineer Relationship Specialty Start Date End Date Unassigned, Provider PCP - General 01/11/[address] [place] [id number] documented as of this encounter
--- OUTSIDE RECORDS SUMMARY | 2022-07-13 07:49 | XMS_ITS | Encounter Summary ---
:1985 Author Organization [facility] Address [address] [place] [address] Care Team Providers Name Role Phone Unassigned, Provider Primary Care Provider Unavailable Reason for Visit Reason Comments Concerns Encounter Details Date Type Department Care Team Description 05/26/2022 Nurse Triage Careline Unassigned, Concerns [address] [place], [place] [address] [place] [address] [place] [address] Social History Tobacco Use Types Packs/Day Years [...] documented as of this encounter Nursing Notes Madison Kelly RN - 05/26/2022 12:47 AM CDT 12:47 AM transfer station operator Verified patient identity using three identifiers: Yes Situation/Background (brief explanation of current symptoms/situation): Patient had a 18 months ago. She is currently 9 weeks with her second child. She noticed a bulge on the left side of her scar. It is sensitive to touch and 4-5/10 pain. She had an ultrasound recently where they noticed a small hemorrhage. Winkelman/Parity: Gestational Age (by DHRUV or LMP): Unknown Patient blood type: No results found for requested labs within last 300 days. Does patient have RH negative blood type? Unknown: consider Rhogam Reviewed with patient pertinent medical history and risk status (as it relates to the call): Yes Reviewed with patient pertinent medications (as they relate to call): N/A Reviewed with patient pertinent allergies (as they relate to call): N/A Reason for Disposition ??? MODERATE-SEVERE abdominal pain (e.g., interferes with normal activities, awakens from sleep) ??? Hernia is painful or tender to touch Protocols used: - ABDOMINAL PAIN LESS THAN 20 WEEKS [id number], [id number] Advised patient/caller to call back CareLine if there are further questions or concerns or to be seen if situation becomes emergent. The CareLine is available 17/06. Madison Long RN Careline 1:02 AM 05/26/2022 Cara Gagnon - 05/26/2022 12:42 AM CDT Verified patient identity using three identifiers: Yes Caller's relationship to patient: Self Do you get your primary care at a [facility] or [facility] clinic: No/Other [facility] Select Member: No Are you calling about a positive COVID result: No Symptoms Describe the reason for call/symptoms (include location and duration if applicable): The patient states that she is currently 9 weeks . The patient states that she had a [id number] months ago. The patient states that tonight she has noticed a small bulge on the left, lowe side of her abdomen underneath her scar. The patient states that when she had her ultrasound on Saturday, they did notice a small hemorrhage and the providers were hoping the hemorrhage would clear up by 20 weeks. The patient states that the area is very sensitive to the touch. Plan:Caller transferred directly to CareLine nurse. documented in this encounter Plan of Treatment Not on filedocumented as of this encounter Visit Diagnoses Not on filedocumented in this encounter Care Teams Sales Support Consultant Relationship Specialty Start Date End Date Unassigned, Provider PCP - General 01/11/[address] [place] [place] [id number] documented as of this encounter
--- OUTSIDE RECORDS SUMMARY | 2022-07-13 07:49 | XMS_ITS | Encounter Summary ---
:1985 Author [facility] Address [address] [address] Care Team Providers Name Role Phone Unassigned, Provider Primary Care Provider Unavailable Reason for Visit Reason Comments VOMITING Encounter Details Date Type Department Care Team Description 01/11/2008 Office Visit [facility] Ernestina ury Influenza (Primary Dx); [address] Vom[place], [place] [id number] Social History Tobacco Use Types Packs/Day Years Used Date Smoking Tobacco: Never Assessed Sex Assigned at Date Recorded Not on file documented as of this encounter Last Filed Vital Signs Vital Sign Reading Time Taken Comments Blood Pressure 104/68 01/11/2008 11:24 AM STRIP MACHINE TENDER Pulse 116 01/11/2008 11:24 AM STRIP MACHINE TENDER Temperature 37.9 ??C (100.3 ??F) 01/11/2008 11:24 AM STRIP MACHINE TENDER Respiratory Rate 20 01/11/2008 11:24 AM STRIP MACHINE TENDER Oxygen Saturation - - Inhaled Oxygen Concentration - - Weight - - Height - - Body Mass Index - - documented in this encounter Progress Notes Osmin Fisher - 01/11/2008 6:51 PM CST This office note has been dictated. Osmin Fisher MD P MACHINE TENDER Osmin Fisher - 01/11/2008 12:00 AM STRIP MACHINE TENDER S: This is a 22 -year-old who comes in with a combination of symptoms. She started vomiting this morning at 8:30, has vomited two or three times, continues to be nauseated, does not have diarrhea. But she also is having a fever and cough, and bodyaches; the fevers and cough started last night. Her father is quite firm about the fact that he gave her some Robitussin and it helped her sleep, and has loaded her up with various decongestants and antitussives today as well, but now with her nausea, she does not have any intake, and so he is concerned about that. Patient is a student at [employer], and is going back to school this evening. O: She on examination has a temperature of 100.3. Pulse of 116. She looks a little pale at the beginning of the consultation, and then later on, before she went home, her color came back a bit, and she looks somewhat better. But she also has a sore throat, minimal nasal congestion. Her mouth and pharynx look basically normal; tonsils not involved. Her eardrums are clear. Her nose looks more or less open. Neck is palpably normal. Her lungs are clear to auscultation and percussion. Abdomen somewhat sensitive to deep palpation in the epigastrium; otherwise, her belly is nonspecific by exam.A/P: So her diagnosis is quite certainly influenza, which happens to fit into an epidemic that we are having in the community right at this exact time. And my feeling is that she vomited this morning just because she feels that sick, not that this is a stomach flu. Both patient and her father were adamant that we had to do whatever we could do because she definitely cannot miss any college, and that she is definitely going back to her dorm tonight, regardless of what I advise. I did start her on some Tamiflu, 75 milligrams b.i.d. times five days. I have told her that nausea and vomiting are a remote possibility as a side effect, so we are sticking our neck out a bit. Secondly, she is going to try some Phenergan with codeine, see if she can benefit some from the cough as well as the nausea. Last but not least, I have told her that it is important to keep her fever under control, so that should be of some benefit for the nausea and vomiting component.But I have told them that almost certainly the influenza will stay with her for several days, and not to be surprised about that, and she is contagious. Follow up as needed. P cc: P MACHINE TENDER documented in this encounter Plan of Treatment Not on filedocumented as of this encounter Visit Diagnoses Diagnosis Influenza - Primary Influenza with other respiratory manifes tations Vomiting Vomiting alone documented in this encounter Care Teams Research Quality Assurance Specialist Relationship Specialty Start Date End Date Unassigned, Provider PCP - General 01/11/[address] [place] [id number] documented as of this encounter
--- OUTSIDE RECORDS SUMMARY | 2022-07-13 07:49 | XMS_ITS | Clinical Summary ---
:1985 Author Organization [facility] Address [address] [place] [address] Care Team Providers Name Role Phone Unassigned, Provider Primary Care Provider Unavailable Source Comments You are receiving this document as you are listed as the primary care provider,follow-up provider, or the patient has been referred to you for consultation.This is in compliance with the Medicare and Medicaid EHR Incentive Program,which states Providers who transition their patient to another setting of careor provider of care or refers their patient to another provider of care shouldprovide summarycare record for each transition of care or referral. [facility] Allergies Active Allergy Reactions Severity Noted Date Comments Cefdinir Nausea And Vomiting 04/13/2019 Hydrocodone Nausea And Vomiting 11/04/2017 Lisinopril Dizziness 12/01/2018 Penicillins Rash 01/11/2008 Sulfa Antibiotics Rash 01/11/2008 Medications Medication Sig Dispensed Refills Start Date End Date Status fluconazole (DIFLUCAN) Take 1 Tab by 2 Tab 0 03/26/2016 Active 150 MG mouth once as tabletIndications: needed (May repeat Vaginal discharge in 3-5 days, if symptoms persist.) for up to 1 dose. Additional Information Patient not taking. Reported on 11/09/2016 Norgestimate-Eth Estradiol (SPRINTEC 28) 0.25-35 TK 1 T PO QD 0 10/12/2016 Active MG-MCG tablet Active Problems No known active problems Encounters Date Type Specialty Care Team Description 05/26/2022 Nurse Triage Careline Unassigned, Provider Gretchen duong Concerns from Last 3 Months Immunizations Name Administration Dates Next Due Flu Vac (3+ yrs) 09/03/2016 Family History Medical History Relation Name Comments Diabetes Father Heart Disease Father High Cholesterol Father Cancer, Breast Mother Heart Disease Mother Multiple Sclerosis Mother Relation Name Status Comments Father Alive Mother Alive Sister 1 Alive Sister 2 Alive Social History Tobacco Use Types Packs/Day Years [...] Sign Reading Time Taken Comments Blood Pressure 130/86 11/09/2016 1:54 PM PREPARED FOODS PRODUCTION TEAM MEMBER Pulse 115 11/09/2016 1:54 PM PREPARED FOODS PRODUCTION TEAM MEMBER Temperature 37.9 ??C (100.3 ??F) 01/11/2008 11:24 AM PREPARED FOODS PRODUCTION TEAM MEMBER Respiratory Rate 17 03/26/2016 2:38 PM CDT Oxygen Saturation - - Inhaled Oxygen Concentration - - Weight 120.7 kg (266 lb) 02/16/2019 8:03 AM CDT Height 166 cm (5' 5.35) 02/16/2019 8:03 AM CDT Body Mass Index 43.79 02/16/2019 8:03 AM CDT Plan of Treatment Health Maintenance Due Date Last Done Comments Hep C Screening (Preventive 1985 Services) HepB (1) 1985 COVID-19 Vaccine (#1) 01/21/1988 HIV Screening (Preventive 2003 Services) Adult Preventive Visit 2005 Pap 02/24/2019 02/25/2016 (Completed) Influenza (#1) 2022 09/16/2018, 11/04/2017, 11/04/2017, Additional history exists DTaP/Tdap/Td (3 - Tdap) 11/04/2027 11/04/2017, 10/22/2007 Zoster/Shingles (1 of 2) 2037 MCV4 Aged Out 10/22/2007 No longer eligib le based on patient 's age to complete this topic HPV Vaccine Aged Out No longer eligib le based on patient 's age to complete this topic HepA Aged Out No longer eligib le based on patient 's age to complete this topic Hib Aged Out No longer eligib le based on patient 's age to complete this topic IPV (Polio) Aged Out No longer eligib le based on patient 's age to complete this topic Pneumococcal Aged Out No longer eligib le based on patient 's age to complete this topic Insurance Payer Benefit Subscriber ID Effective Phone Address Type Plan / Dates Group [facility] [id number] 2018-Pres [phone] [phone] [place] [address] Ileana Velásquez Personal/Family Self 1985 [address] (Home) [phone] [place] (Work) [phone] Ileana Velásquez Personal/Family Self 1985 [address] (Home) [phone] [place] (Work) [id number] Care Teams Combination Window Installer Relationship Specialty Start Date End Date Unassigned, Provider PCP - General 01/11/[address] [place] [id number]
--- OUTSIDE RECORDS SUMMARY | 2022-07-13 07:49 | XMS_ITS | Encounter Summary ---
:1985 Author Organization [facility] Address [address], [place] [address] Care Team Providers Name Role Phone Unassigned, Provider Primary Care Provider Unavailable Reason for Visit Procedure/Equipment (Routine) - Incomplete Specialty Diagnoses / Procedures Referred By Contact Refer red To Contact Procedures Provider, Foreign Images Foreign Image(S) XR knee Lt [address] [place] [address] Referral ID Status Reason Start Date Expiration Date Visits V isits Requested Authorized [id number] Incomplete 02/16/2019 05/17/2020 1 1 Encounter Details Date Type Department Care Team Description 12/04/2017 Ancillary Procedure [facility] Radiology PACS Provider, [address] [place] [address] [address] [place] [address] Social History Tobacco Use Types Packs/Day Years [...] Diagnosis Comme nts FOREIGN IMAGE(S) XR Routine 12/04/2017 12:00 AM R esults for this KNEE LT SCROLL MACHINE OPERATOR procedure are i n the results section. documented in this encounter Results Foreign Image(S) XR knee Lt (12/04/2017 12:00 AM SCROLL MACHINE OPERATOR) Specimen (Source) Anatomical Location Collection Method / Collectio n Time Received Time / Laterality Volume Narrative PN POCT - 02/16/2019 8:13 AM CDT These outside images have been uploaded into PACS. If the results were provided, they will be located in the pa arleennt's chart under the Media or Imaging tab. Foreign Images Provider RAD NON-REPORTABLES Performing Organization Address City/State/ZIP Code Phon e Number POCT PN POCT documented in this encounter Visit Diagnoses Not on filedocumented in this encounter Care Teams Envelope Maker Relationship Specialty Start Date End Date Unassigned, Provider PCP - General 01/11/[address] [place] [id number] documented as of this encounter
--- OUTSIDE RECORDS SUMMARY | 2022-07-13 07:49 | XMS_ITS | Encounter Summary ---
:1985 Author Organization [facility] Address [address] [place] [address]. [place] [address] Care Team Providers Name Role Phone Unavailable Primary Care Provider Unavailable Reason for Visit Reason Comments Sick coughing, vomitting, pain an d pressure in left ear and subside, when she went on the plane they came back x 1 week. drainage in throat. ibuprofen with no improvements Eye Problem right eye redness. stabbing pain, causing her to have a headache Derm Problem itchy rash on leg Encounter Details Date Type Department Care Team Description 07/18/2012 Office Visit [facility] Salomon Gil MD PhD Right corneal abrasion (Primary Dx); Clinic [address] Otitis externa; [address] [place] [address] [place], [place] URI (upper respiratory infec tion); [place] [address] Skin rash [id number] [phone] Social History Tobacco Use Types Packs/Day Years Used Date Never Smoker Smokeless Tobacco: Never Used Alcohol Use Standard Drinks/Week Comments Yes 0 (1 standard drink = 0.6 oz pure alcoho l) socially Sex Assigned at Date Recorded Not on file documented as of this encounter Last Filed Vital Signs Vital Sign Reading Time Taken Comments Blood Pressure 100/74 07/18/2012 10:49 AM CDT Pulse 92 07/18/2012 10:49 AM CDT Temperature 37.3 ??C (99.1 ??F) 07/18/2012 10:49 AM CDT Respiratory Rate 24 07/18/2012 10:49 AM CDT Oxygen Saturation 98% 07/18/2012 10:49 AM CDT Inhaled Oxygen Concentration - - Weight 99.3 kg (218 lb 14.4 oz) 07/18/2012 10:49 AM CDT Height 164.5 cm (5' 4.75) 07/18/2012 10:49 AM CDT Body Mass Index 36.71 07/18/2012 10:49 AM CDT documented in this encounter Patient Instructions Patient Sim Cerna - 07/18/2012 10:53 AM CDT Medication at our pharmacy: Ciprodex ear drop for the ear infection. Tobramycin eye drop to prevent eye infection. Diclofenac eye drop for pain. Use over the counter sinus cough and cold medicine for the cold, and hydrocortisone for the rash. Call your eye doctor to be seen early next week to follow up on corneal abrasion. No contact lens use until seen by your eye doctor. Thank you for visiting [facility] Normal or non-critical lab and imaging results will be communicated to you by MyChart, letter or phone within 7 days. If you do not hear from us within 10 days, please call the clinic. If you have a critical or abnormal lab result, we will notify you by phone as soon as possible. General information about your clinic Clinic Hours Lab Hours (Appointments are required) Mon-Th: 7:30 AM - 7 PM Mon-Thurs: 7:30 AM - 7 PM Fri: 7:30 AM - 5 PM Fri: 7:30 AM - 5 PM After Hours Nurse Advise & Appts: [facility] Nurse Advisors: [phone] [facility] Banquet Attendant: to make appointments anytime: [phone] Banquet Attendant Physician: call [phone] and answering service will page the hematologist oncologist physician. For urgent appointments, please call [phone] and ask for the triage nurse or your care team clinic nurse. How to contact my care team: [facility]: [email or web address]: Hours: 8:30 AM - 5:30 PM Medication Refills: Call your pharmacy and they will forward the refill to us. Please allow 3 business days for your refills to be completed. Normal Values Blood pressure <140/90 for most adults <130/80 for some chronic diseases (ask your care team about yours) BMI (body mass index) 19-29.4 kg/m2 (based on height and weight) Your Health Maintenance Your clinic record indicates that you are due for: Please schedule a lab appointment before you come in. If you are getting a cholesterol or diabetes screening test, you need to be fasting for at least 9 hours without food or caffeine. You may have water and take your medications. New We are now offering telephone & video visits. Ask one of the team members for more information. -Your Care Team: Katheryn Sotelo, RAJI Jensen, DANAY Silver, MD Sim Patel RN,Machine Washer COLUMBA Hart MD Carol Westholter, Boring Machine Feeder COLUMBA Cardoza, Web Services Professional Jeremy Baumann MA see additional instructions from your care team below documented in this encounter Progress Notes Salomon Gil MD - 07/20/2012 9:23 AM CDT SUBJECTIVE: Ileana Saul 26 year old female scheduled an appointment for Chief Complaint Patient presents with ??? Sick coughing, vomitting, pain and pressure in left ear and subside, when she went on the plane they came back x 1 week. drainage in throat. ibuprofen with no improvements ??? Eye Problem right eye redness. stabbing pain, causing her to have a headache ??? Derm Problem itchy rash on leg [place]. Had right ear pain about one week ago. Treated for 3 days wit hear drop for otitis externa, used the medication prescribed to boy friend's sister, as they had similar symptoms, both did a lot of swimming. It got better. The day before they flew back, she started having congestion, cough and sore throat. No fever. Yesterday they flew back. While on the pain she developed severe right eye pain, stabbing, causing her to have headache and vomiting. Pt normally wears contact lenses but has not since last night due to the eye pain. Denies shortness of breath. Also got a rash on the right leg and the left foot. Itching some. Not painful. OBJECTIVE: BP 100/74 Pulse 92 Temp(Src) 99.1 ??F (37.3 ??C) (Tympanic) Resp 24 Ht 5' 4.75 (1.645 m) Wt 218 lb 14.4 oz (99.292 kg) BMI 36.71 kg/m2 SpO2 98% LMP 07/17/2012 Gen: pleasant female patient in moderate distress from pain in the right eye. Head: Normocephalic, atraumatic. Eyes: right conjunctiva with diffuse injection, fluorescein dye test revealed two small abrasion, pin size for both. Ears: External ears and TMs normal BL except that right ear canal is mildly inflammed, tender to pressing on tragus and pulling on pinna. TM normal appearing. Nose: Septum midline, nasal mucosa pink and moist. No discharge. Mouth / Throat: Normal dentition. No oral lesions. Pharynx non erythematous, tonsils without hypertrophy. Neck: Supple, no enlarged LN, trachea midline. LUNGS: CTA B/L, no wheezing or crackles. Heart & CV: RRR no murmur. Intact distal pulses, good cap refill. Skin: right lower leg a cluster of pink bumps, no blistering. Similar red bumps on the left foot Assessment and Plan: Ileana was seen today for sick, eye problem and derm problem. Diagnoses and associated orders for this visit: Right corneal abrasion likely from contact lens wear. follow up with her eye MD early next week. - tobramycin (TOBREX) 0.3 % ophthalmic solution; Apply 1 drop to eye every 4 hours for 7 days. - diclofenac (VOLTAREN) 0.1 % ophthalmic solution; For 1-2 days until pain is gone. Otitis externa - pduitcsx-rjwuzqomh-yeiosgesjookxk (CORTISPORIN) 3.5-92611-4 otic suspension; Place 4 drops in ear(s) 4 times daily. Uri (upper respiratory infection): symptomatic treatment. Follow up if no improvement. Skin rash: on the leg and foot. Non specific. Can try hydrocortisone OTC for symptom relief. If morelesion develops, will need to reassess. Pt isn't sure she will establish care here. Just got new insurance. Has to do more research about adjunct faculty for medical terminology primary care. Salomon Gil MD, PhD Internal Medicine/Pediatrics documented in this encounter Nursing Notes 07/18/2012 11:00 AM CDT >> SIM SILVER Fri Jul 18, 2012 10:53 AM Patient presents with: Sick - pain and pressure in left ear and subside, when she went on the plane they came back x 1 week. drainage in throat Eye Problem - right eye redness. stabbing pain Derm Problem - itchy rash on leg Initial BP 100/74 Pulse 92 Temp(Src) 99.1 ??F (37.3 ??C) (Tympanic) Resp 24 Ht 5' 4.75 (1.645 m) Wt 218 lb 14.4 oz (99.292 kg) BMI 36.71 kg/m2 SpO2 98% LMP 07/17/2012 Estimated Body mass index is 36.71 kg/(m^2) as calculated from the following: Height as of this encounter: 5' 4.75(1.645 m). Weight as of this encounter: 218 lb 14.4 oz(99.292 kg).. BP completed using cuff size: large Sim Silver MA documented in this encounter Plan of Treatment Not on filedocumented as of this encounter Visit Diagnoses Diagnosis Right corneal abrasion - Primary Superficial injury of cornea Otitis externa Infective otitis externa, unspecified URI (upper respiratory infection) Acute upper respiratory infections of un specified site Skin rash Rash and other nonspecific skin eruption documented in this encounter
--- OUTSIDE RECORDS SUMMARY | 2022-07-13 07:49 | XMS_ITS | Encounter Summary ---
:1985 Author Organization [facility] Address [address] [address] Care Team Providers Name Role Phone Unassigned, Provider Primary Care Provider Unavailable Reason for Visit Procedure/Equipment (Routine) - Incomplete Specialty Diagnoses / Procedures Referred By Contact Refer red To Contact Procedures Provider, Foreign Images Foreign Image(S) XR knee Lt [address] [place] [address] Referral ID Status Reason Start Date Expiration Date Visits V isits Requested Authorized [id number] Incomplete 02/16/2019 05/17/2020 1 1 Encounter Details Date Type Department Care Team Description 02/09/2019 Ancillary Procedure [facility] Radiology PACS Provider, [address] [address] [address] [place] [address] Social History Tobacco Use Types Packs/Day Years [...] Diagnosis Comme nts FOREIGN IMAGE(S) XR Routine 02/09/2019 12:00 AM R esults for this KNEE LT CDT procedure are i n the results section. documented in this encounter Results Foreign Image(S) XR knee Lt (02/09/2019 12:00 AM CDT) Specimen (Source) Anatomical Location Collection Method / Collectio n Time Received Time / Laterality Volume Narrative PN POCT - 02/16/2019 8:16 AM CDT These outside images have been uploaded into PACS. If the results were provided, they will be located in the pa arleennt's chart under the Media or Imaging tab. Foreign Images Provider RAD NON-REPORTABLES Performing Organization Address City/State/ZIP Code Phon e Number POCT PN POCT documented in this encounter Visit Diagnoses Not on filedocumented in this encounter Care Teams Field Horticultural Specialty Grower Relationship Specialty Start Date End Date Unassigned, Provider PCP - General 01/11/[address] [place] [id number] documented as of this encounter
--- OUTSIDE RECORDS SUMMARY | 2022-07-13 07:49 | XMS_ITS | Encounter Summary ---
:1985 [facility] Address [address], [place] [address] Care Team Providers Name Role Phone Unassigned, Provider Primary Care Provider Unavailable Reason for Visit Procedure/Equipment (Routine) - Incomplete Specialty Diagnoses / Procedures Referred By Contact Refer red To Contact Procedures Provider, Foreign Images Foreign Image(S) MR Knee Lt [address] [place] [address] Referral ID Status Reason Start Date Expiration Date Visits V isits Requested Authorized [id number] Incomplete 02/16/2019 05/17/2020 1 1 Encounter Details Date Type Department Care Team Description 07/09/2018 Ancillary Procedure [facility] Radiology PACS Provider, [address] [address] [address] [place] [address] Social History Tobacco Use Types Packs/Day Years [...] Diagnosis Comme nts FOREIGN IMAGE(S) MR Routine 07/09/2018 8:15 AM Re sults for this KNEE LT CDT procedure are i n the results section. documented in this encounter Results Foreign Image(S) MR Knee Lt (07/09/2018 8:15 AM CDT) Specimen (Source) Anatomical Location Collection [...] on filedocumented in this encounter Care Teams Soup Mixer Relationship Specialty Start Date End Date Unassigned, Provider PCP - General 01/11/[address] [place] [id number] documented as of this encounter
--- OUTSIDE RECORDS SUMMARY | 2022-07-13 07:49 | XMS_ITS | Encounter Summary ---
:1985 Author Organization [employer] Address [address] [place] [address] Care Team Providers Name Role Phone Unassigned, Provider Primary Care Provider Unavailable Reason for Visit Reason Comments Follow-up Lt ACLR Encounter Details Date Type Department Care Team Description 04/13/2019 Office Visit [facility] [place] Angela Spring ain of left knee (Primary Dx); [facility] MD Geovanna S/P ACL reconstruction [address] [place] [address] [place] [phone] Social History Tobacco Use Types Packs/Day Years [...] on file documented as of this encounter Patient Instructions Patient InstructionsDavid Faith, ATC - 04/13/2019 8:40 AM CDT Thank you for coming to your health care visit at [facility] today. Please read the contents below for important information regarding today's appointment. Dr. Angela Spring MD Sports Medicine & Orthopaedic Surgery Medication Requests: Prescriptions are not filled on weekends or on weekdays after 3:00 PM. For all medication refills: Request a refill using [employer] or contact your pharmacy. Nurse Line: Please contact the Nurse Triage Line for all medical requests and questions at [phone]. Imaging [facility]ped[facility] [place]: [phone] [facility]: [phone] Paperwork Requests/ Questions Regarding Surgery Scheduling: Business Leader: Clau Morris [facility] Workers' Compensation [address] [place] [address] (P) [phone] (F) Navigator: David Ya ATC Diagnosis: Diagnosis and Associated Orders ICD-10-CM 1. Chronic pain of left knee M25.562 G89.29 2. S/P ACL reconstruction Z98.890 Injection Today: No Plan: 1. Work on stretching out the lower leg 3 times a day for 30 seconds 2. Can decrease the physical therapy sessions 3. Continue to utilize the brace Follow-Up: 3 months documented in this encounter Progress Notes Angela Spring MD - 04/13/2019 8:40 AM CDT Images from the original note were not included. ORTHOPAEDIC FOLLOW UP NOTE DATE OF SERVICE: 04/13/2019 CHIEF COMPLAINT: Follow up left knee PREVIOUS DIAGNOSIS: Left knee pain s/p left ACL reconstruction with lateral meniscus repair [place] 11/28/2017 HISTORY OF PRESENT ILLNESS Ileana Diehl is a 33 y.o. old female who is here for follow up examination of the left knee. Since last visit, she is doing well. She has not been doing physical therapy in the last next coupleof weeks due to the cost with every visit ($50 copay). She does feel she is benefiting from physicaltherapy. She has less pain and feels her strength is improving. She has continued to take her boxingclasses while modifying as needed and wearing her functional ACL brace without troubles. She continues to get pain in the posterior ankle, she notices the pain comes after weightlifting or from excessive squatting at boxing class. The pain is located around the achilles tendon near the insertion on the calcaneous. The pain is a sharp aching pain, when pressure is placed on her heel. She has only been doing concentric calf raises thus far - no stretching or eccentrics. Previous Injection: yes Helpful? No Previous Physical Therapy: yes Helpful? Yes MEDICAL HISTORY I reviewed PAST MEDICAL & SURGICAL HISTORY, PROBLEM LIST, SOCIAL HISTORY and FAMILY HISTORY in [facility]IC today. Allergies Allergen Reactions ??? Hydrocodone Nausea And Vomiting ??? Lisinopril Dizziness ??? Penicillins Rash ??? Sulfa Antibiotics Rash PHYSICAL EXAMINATION GENERAL: The patient is pleasant and cooperative today and appears her stated age. She is alert and oriented x3 and in no acute distress. HENT: Appearance symmetric with no discoloration or masses. External ears and nose normal without lesion or deformity. EYES: Pupils equal and round. Conjunctivae and lids normal. RESPIRATORY: Breathing is unlabored without any audible wheezing. NEURO/PSY: Normal affect. She shows no signs of agitation or depression. CARDIOVASC: Well perfused extremities SKIN: Normal temperature, turgor, and texture; no rash. MUSCULOSKELETAL: LEFT KNEE Side: left Gait: normal Quadriceps Atrophy: none Tenderness: none ROM affected (contralateral): -2-135 (-2-135) Effusion: noen Single leg squat: slightly more shallow with left vs right Meniscus Exam: Medial Meniscus: positive Medial joint line tenderness negative Layne test Lateral Meniscus: positive Lateral joint line tenderness negative Layne test Ligament Exam: Rachel MCL PCL LCL Affected 1A Normal Normal Normal Unaffected 1A Normal Normal Normal Patellofemoral Exam Affected Unaffected Patellar Grind negative negative Apprehension Sign negative negative Passive Patellar Translation 2 quadrants lateral 2 quadrants medial 2 quadrants lateral 2 quadrants medial Passive Lateral Patellar Tilt 5 5 Left Ankle: Tender over distal achilles tendon Left: DF with knee extended 5; with the knee bent 10 Right: DF with knee extended 15; with the knee bent 20 Distally the patient's neurovascular status is normal with sensation intact to light touch superficial peroneal, deep peroneal, sural, saphenous, and tibial nerve distributions. Motor grossly intact EHL, Tibialis anterior, gastroc-soleus complex Limb is well perfused with palpable pulses and brisk capillary refill <2 seconds IMAGING: No new imaging today ASSESSMENT & PLAN Ileaan Diehl is a 33 y.o. old female with left knee pain and quadriceps under-rehabilitation s/p ACLR, and left achilles tendonitis She is progressing well but still has significant weakness in the left compared to right quadriceps.PT and HEP will be very important for regaining strength and improving pain. PT has been difficult for her to attend due to the high copay, so I have recommended spacing out her PT visits and doing a diligent HEP at her home/gym. I have cc'ed her PT on this note to have her setup with a HEP focusing on progressive quad strengthening as well as achilles stretches and eccentric gastroc-soleus strengthening. Ileana also complains of hamstring cramping with squat exercises,so she can also work in some hamstring strengthening exercises. I have recommended continuing to use her ACL functional brace for boxing until her strength has improved. She will follow up in the clinic 3 months. All of her questions were answered today. She verbalized understanding of her diagnosis and was in agreement with the treatment plan. If she has any further questions or concerns, she is to contact the office. This note was created using a scribe, templating, and voice recognition software ([employer]) which may result in unintentional word substitutions. I evaluated the patient, performed the physical examination, and formulated the diagnosis and treatment plan. I reviewed the patient's chart, and appropriate radiographic and laboratory results.?? I agree with the findings and plan of care as scribed by David Faith ATC, whose note I reviewed, edited, and amended. Angela Spring MD documented in this encounter Plan of Treatment Not on filedocumented as of this encounter Visit Diagnoses Diagnosis Chronic pain of left knee - Primary Pain in joint, lower leg S/P ACL reconstruction Other postprocedural status documented in this encounter Care Teams Batch Plant Supervisor Relationship Specialty Start Date End Date Unassigned, Provider PCP - General 01/11/[address] [place] [id number] documented as of this encounter
--- OUTSIDE RECORDS SUMMARY | 2022-07-13 07:49 | XMS_ITS | Encounter Summary ---
:1985 Author Organization [facility] Address [address] [place] [address] Care Team Providers Name Role Phone Elsewhere, Pcp Primary Care Provider Unavailable Reason for Visit Reason Comments Abdominal Cramping LLQ; by c section scar; pt n oticed bulge last night. Encounter Details Date Type Department Care Team Description 05/26/2022 Office Visit Urgent Care, Hospital Ayad Rico, [facility] in [place], M.D., Ph. D. Generalized (Primary [place] [address] [facility] [place]) [address] [place] [phone] Social History Tobacco Use Types Packs/Day Years Used Date Smoking Tobacco: Never Smokeless Tobacco: Never Sex Assigned at Date Recorded Not on file documented as of this encounter Last Filed Vital Signs Vital Sign Reading Time Taken Comments Blood Pressure 123/85 05/26/2022 9:21 AM CDT Pulse 92 05/26/2022 9:21 AM CDT Temperature 37.4 ??C (99.3 ??F) 05/26/2022 9:21 AM CDT Respiratory Rate 22 05/26/2022 9:21 AM CDT Oxygen Saturation 98% 05/26/2022 9:21 AM CDT Inhaled Oxygen Concentration - - Weight 127 kg (279 lb 15.8 oz) 05/26/2022 9:21 AM CDT Height - - Body Mass Index 46.59 05/13/2022 9:39 AM CDT documented in this encounter Progress Notes Ayad Rico M.D., Ph.D. - 05/26/2022 9:15 AM CDT CHIEF COMPLAINT / REASON FOR VISIT Abdominal Cramping (LLQ; by c section scar; pt noticed bulge last night.). HISTORY OF PRESENT ILLNESS Ileana Velásquez is a 36 y.o. female who presents for evaluation of Abdominal Cramping (LLQ; byc section scar; pt noticed bulge last night.) Patient had a 18 months ago. She is currently 9 weeks with her second child. She noticed a bulge on the left side of her scar yesterday. It is sensitive to touch and 4-5/10pain. She had an ultrasound recently where they noticed a small hemorrhage. The notes for this are in careverywhere noting 'The placenta has not yet developed. In the mid uterus there is subchorionic crescentic hypodensity measuring 1.7 x 0.9 by 0.6 cm' The following portions of the patient's history were reviewed: medical history and problem list. No past medical history on file. No past surgical history on file. Current Outpatient Medications Medication Sig ??? ondansetron ODT (ZOFRAN-ODT) 4 mg disintegrating tablet ??? prenat.vits,umair,rni-fdws-gclwl tablet Take by mouth. ??? sertraline (ZOLOFT) 100 mg tablet Take 100 mg by mouth daily. Allergies Allergen Reactions ??? Sulfa (Sulfonamide Antibiotics) Rash ??? Penicillins Rash Social History Socioeconomic History ??? Marital status: Tobacco Use ??? Smoking status: Never Smoker ??? Smokeless tobacco: Never Used Vaping Use ??? Vaping Use: never used REVIEW OF SYSTEMS Please see HPI for pertinent positives and negatives OBJECTIVE PHYSICAL EXAMINATION: BP 123/85 (BP Location: Right arm, Patient Position: Sitting, Cuff Size: Large) Pulse 92 Temp 37.4 ??C (Temporal) Resp 22 Wt 127 kg SpO2 98% No BMI 46.59 kg/m?? Body mass index is 46.59 kg/m??.Wt 127 kg Physical Exam DIAGNOSTICS No results found for this or any previous visit. No images are attached to the encounter or orders placed in the encounter. ASSESSMENT / PLAN #Tenderness Abdominal #OBGYN concerns Plan and decision making Patient seen briefly out of concern for potential expanding bloo d in subchorionic area. I talked to Ms. Velásquez about the limited capabilities of in that we do not have US capability or on site OB. Ms. Velásquez's OB care has thus been thru [facility]. We have called their ED whom does have ultrasound capabilities and would be able to perform, alternative was for [facility]. No symptoms in Ms. Velásquez as far as vital changes or pre-sycnope,flushing, or other indications of hypotension. Ms. Velásquez drove to this clinic today and I have strongly advised presenting to ED after our staff has called them, in [place]. That is her next destination. I informed patient's by phone. We discussed symptoms to monitor symptoms that should prompt them to return for re-evaluation. Patient demonstrates understanding of and agreement with the plan for discharge. All questions and concerns were addressed to the best of my ability. Ayad Rico MD/PhD Clinical Fellow - [place] [id number] P documented in this encounter Plan of Treatment Not on filedocumented as of this encounter Visit Diagnoses Diagnosis Tenderness Abdominal Generalized - Prima ry documented in this encounter Care Teams Real Estate Services Administrator Relationship Specialty Start Date End Date Elsewhere, Pcp PCP - General Internal Medicine 05/13/22 documented as of this encounter
--- OUTSIDE RECORDS SUMMARY | 2022-07-13 07:49 | XMS_ITS | Encounter Summary ---
:1985 Author Organization [facility] [place] [address] Care Team Providers Name Role Phone Unassigned, Provider Primary Care Provider Unavailable Reason for Visit Procedure/Equipment (Routine) - Incomplete Specialty Diagnoses / Procedures Referred By Contact Refer red To Contact Diagnoses Leg swelling Angela Spring MD Procedures US VENOUS LEFT LOWER EXTREM DOPPLER [address] [place] [address] Referral ID Status Reason Start Date Expiration Date Visits V isits Requested Authorized [id number] Incomplete 02/24/2019 05/25/2020 1 1 Encounter Details Date Type Department Care Team Description 02/24/2019 Ancillary Procedure Angela Martinez eg swelling [facility] Andrew Austin MD [address] [place] [address] [place] [phone] Social History Tobacco Use Types Packs/Day Years [...] Name Priority Date/Time Associated Diagnosis Comme nts US LOWER EXTREMITY Routine 02/24/2019 1:07 PM Leg swelling Res ults for this LT VENOUS DOPPLER CDT procedure are in the results section. documented in this encounter Results US VENOUS LEFT LOWER EXTREM DOPPLER (02/24/2019 1:07 PM CDT) Anatomical Region Laterality Modality Vascular, Leg Ultrasound Specimen (Source) Anatomical Collection Method Collection Time Re ceived Time Location / / Volume Laterality 02/24/2019 1:07 PM CDT Narrative 02/24/2019 2:10 PM CDT EXAM: US VENOUS LEFT LOWER EXTREM DOPPLER LOCATION: [facility] DATE/TIME: 02/24/2019 1:07 PM INDICATION: [...] VENOUS LEFT LOWER EXTREM DOPPLE R LOCATION: [facility] DATE/TIME: 02/24/2019 1:07 PM INDICATION: [...] venous thrombosis in the left lower extremity. Angela Spring MD [facility] documented in this encounter Visit Diagnoses Diagnosis Leg swelling Swelling of limb documented in this encounter Care Teams Army Helicopter Pilot Relationship Specialty Start Date End Date Unassigned, Provider PCP - General 01/11/[address] [place] [id number] documented as of this encounter
--- OUTSIDE RECORDS SUMMARY | 2022-07-13 07:49 | XMS_ITS | Encounter Summary ---
:1985 [facility] Address [address] [facility] [place] [address] Care Team Providers Name Role Phone Unassigned, Provider Primary Care Provider Unavailable Reason for Visit Reason Comments Ultrasound Results Encounter Details Date Type Department Care Team Description 02/23/2019 Telephone [facility] ORTHOPAEDIC Chaz Spring, Ultrasound Results CENTER [address] [place] [address] [place] [address] [phone] (Wo rk) Social History Tobacco Use Types [...] documented as of this encounter Nursing Notes Angela Spring MD - 02/24/2019 3:01 PM CDT Called patient with results of lower exremity duplex ultrasound. No blood clot seen. All patient questions answered. Angela Spring MD documented in this encounter Plan of Treatment Not on filedocumented as of this encounter Visit Diagnoses Not on filedocumented in this encounter Care Teams Research And Development Researcher Relationship Specialty Start Date End Date Unassigned, Provider PCP - General 01/11/08 [address] [place] [address] documented as of this encounter
--- OUTSIDE RECORDS SUMMARY | 2022-07-13 07:49 | XMS_ITS | Encounter Summary ---
:1985 Author Organization [facility] Address [address] [place] [address] Care Team Providers Name Role Phone Unassigned, Provider Primary Care Provider Unavailable Encounter Details Date Type Department Care Team Description 03/26/2016 Lab Visit [place] [facility] examination or [address] test, unconfirmed [place], [place] [address] Social History Tobacco Use Types Packs/Day Years Used Date Smoking Tobacco: Never Alcohol Use Standard Drinks/Week Comments Yes 0 (1 standard drink = 0.6 oz pure alcoho l) Sex Assigned at Date Recorded Not on file documented as of this encounter Progress Notes Ana Acosta MD - 03/26/2016 5:07 PM CDT Quick Note: Discussed at visit. Ana Acosta DO 03/26/2016, 5:07 PM documented in this encounter Plan of Treatment Not on filedocumented as of this encounter Procedures Procedure Name Priority Date/Time Associated Diagnosis Comme nts TEST Waiting 03/26/2016 2:54 PM Results for this (URINE) CDT examination or test, procedu re are in the results unconfirmed section. documented in this encounter Results TEST (URINE) [0195] (03/26/2016 2:54 PM CDT) [facility] Method Time Signature HCG, Urine Negative HPMG Negative = <25 mIU/ml LABORATO RAINER If is suspected, suggest repeat in 48-72 hours or confirm results with a quantitative hCG test. Specimen Anatomical Collection Method Collection Time Receive d Time (Source) Location / / Volume Laterality Urine specimen 03/26/2016 2:54 PM 016 2:55 (specimen) CDT PM CDT Narrative [facility] - 03/26/2016 3:19 PM C DT Performed at [facility], [address], [place] [address] Ana Acosta DO LAB_1 Performing Organization Address City/State/[facility] Code Phon e Number [facility] [phone] documented in this encounter Visit Diagnoses Diagnosis examination or test, unconfirmed documented in this encounter Care Teams Cigar Maker Relationship Specialty Start Date End Date Unassigned, Provider PCP - General 01/11/[address] [place] [address] documented as of this encounter
--- OUTSIDE RECORDS SUMMARY | 2022-07-13 07:49 | XMS_ITS | Encounter Summary ---
:1985 Author Organization [facility] Address [address] [place] [address] Care Team Providers Name Role Phone Elsewhere, Pcp Primary Care Provider Unavailable Reason for Visit Reason Comments Nausea I'm very nauseated and tryi ng not to throw up. Nausea started yesterday around 1300 and pt has been unable to hold down anything since. Has not taken anything for nausea. Encounter Details Date Type Department Care Team Description 05/13/2022 Emergency [facility] iLda Gillespie D.O. Nausea And Vomiting Department [address] [place] [address] (Primary Dx) [address] [place] [id number] [phone] Social History Tobacco Use Types Packs/Day Years Used Date Smoking Tobacco: Never Smokeless Tobacco: Never Sex Assigned at Date Recorded Not on file documented as of this encounter Last Filed Vital Signs Vital Sign Reading Time Taken Comments Blood Pressure 134/80 05/13/2022 10:45 AM CDT Pulse 82 05/13/2022 10:45 AM CDT Temperature 37 ??C (98.6 ??F) 05/13/2022 10:45 AM CDT Respiratory Rate 20 05/13/2022 10:45 AM CDT Oxygen Saturation 100% 05/13/2022 10:45 AM CDT Inhaled Oxygen Concentration - - Weight 128 kg (282 lb) 05/13/2022 9:39 AM CDT Height 165.1 cm (5' 5) 05/13/2022 9:39 AM CDT Body Mass Index 46.93 05/13/2022 9:39 AM CDT documented in this encounter Discharge Instructions Discharge InstructionsLida Gillespie D.O. - 05/13/2022 10:30 AM CDT Take pyridoxine (vitamin B6) 25mg 3 times per day AND Unisom (doxylamine) 25mg 3 times per day for nausea/vomiting. These are available [id number]. Take Zofran (ondansetron) every 6 hours as needed for additional control of nausea/vomiting. You blood pressure was mildly elevated in the ER today. 139/101, 152/77 Call your doctor tomorrow morning to discuss your ER visit and your elevated blood pressure. Follow a low salt diet, minimizing: Cheese Cured meats such as lunch meat/cold cuts, hotdogs, sausage, jim, and ham Frozen meals Restaurant foods Canned entrees such as ravioli, spam, and chili Salted snack foods such as chips and crackers AttachmentsThe following attachments cannot be sent through Care Everywhere. Hyperemesis Gravidarum (Tunisian)Hypertension During Lrbi-vm-Hbtw (Tunisian)documented in this encounter Medications at Time of Discharge Medication Sig Dispensed Refills Start Date End Date prenat.vits,umair,min-iron-f Take by mouth. 0 olic tablet sertraline (ZOLOFT) 100 mg Take 100 mg by 0 tablet mouth daily. ondansetron ODT Dissolve 1 tablet 10 tablet 3 05/13/2022 (ZOFRAN-ODT) 4 mg (4 mg total) in the disintegrating tablet mouth every 6 (six) hours as needed for nausea or vomiting for up to 10 days. documented as of this encounter ED Notes Lida Gillespie D.O. - 05/13/2022 10:57 AM CDT [facility] EMERGENCY DEPARTMENT ENCOUNTER Patient Name: Ileana Velásquez Birthdate 1985 Date of evaluation: 05/13/2022 Provider: Lida Gillespie D.O. PCP: ELSEWHERE, PCP SUBJECTIVE CHIEF COMPLAINT/REASON FOR VISIT Nausea (I'm very nauseated and trying not to throw up. Nausea started yesterday around 1300 and pthas been unable to hold down anything since. Has not taken anything for nausea.) HISTORY OF PRESENT ILLNESS Ileana Velásquez is a 36 y.o. female who presents to the emergency department for evaluation ofnausea and vomiting in the first trimester of . She has had increased nausea this past weekbut has been unable to keep anything down since yesterday afternoon. She has not seen her OB yet. No abdominal pain or vaginal bleeding. She is not taking any medications other than her vitamins for this . REVIEW OF SYSTEMS Gastrointestinal: Positive for nausea and vomiting. - Negative for abdominal (belly) pain or cramping, constipation and diarrhea. Genitourinary: - Negative for abnormal vaginal bleeding. Musculoskeletal: - Negative for back pain. Neurological: Positive for light-headedness. MEDICAL HISTORY History reviewed. No pertinent past medical history. SOCIAL HISTORY Social History Tobacco Use ??? Smoking status: Never Smoker ??? Smokeless tobacco: Never Used Substance Use Topics ??? Alcohol use: Not on file OBJECTIVE VITAL SIGNS BP 134/80 (BP Location: Left arm, Patient Position: Semi-recumbent) Pulse 82 Temp 37 ??C (Temporal) Resp 20 Ht 165.1 cm Wt 128 kg LMP (Exact Date) SpO2 100% BMI 46.93 kg/m?? PHYSICAL EXAMINATION Vitals and nursing note reviewed. Constitutional General: She is not in acute distress. Appearance: She is not ill-appearing. HENT Head: Normocephalic. Mouth/Throat: Mouth: Mucous membranes are moist. Eyes Conjunctiva/sclera: Conjunctivae normal. Cardiovascular Rate and Rhythm: Normal rate and regular rhythm. Pulmonary Effort: Pulmonary effort is normal. Breath sounds: Normal breath sounds. Abdominal Palpations: Abdomen is soft. Tenderness: There is no abdominal tenderness. Musculoskeletal Cervical back: Neck supple. Right lower leg: No edema. Left lower leg: No edema. Skin General: Skin is warm and dry. Neurological Mental Status: She is alert and oriented to person, place, and time. Gait: Gait normal. Psychiatric Mood and Affect: Mood normal. Behavior: Behavior is cooperative. EMERGENCY DEPARTMENT COURSE and DIFFERENTIAL DIAGNOSIS/MDM: Patient was given the following medications: Medications sodium chloride 0.9 % injection 2-10 mL (has no administration in time range) ondansetron (PF) injection 4 mg (ZOFRAN) (4 mg intravenous Given 05/13/22 0957) NaCl 0.9 % bolus 1,000 mL (0 mL intravenous Stopped 05/13/22 1049) MDM: Patient presents to the emergency department for evaluation of nausea and vomiting in the first trimester of . She has been unable to tolerate p.o. since yesterday. Her abdomen is soft and nontender. No vaginal bleeding. Her mucous membranes are moist and her vital signs are normal other thanher blood pressure being slightly elevated. Patient states she did have elevated blood pressure at the end of her previous and was induced. She was given Zofran and 1 L of IV fluids and feelssignificantly better. I discussed with patient taking Unisom and vitamin B6 daily and will prescribeZofran as needed. She is instructed to call her primary care provider tomorrow for close follow-up of her blood pressure and to follow a low-salt diet. FINAL IMPRESSION: 1. Nausea And Vomiting DISPOSITION/PLAN: PATIENT REFERRED TO: Clau Mcneill M.D. [address] [place] [address] [phone] Schedule an appointment as soon as possible for a visit DISCHARGE MEDICATIONS: Discharge Medication List as of 05/13/2022 10:34 AM START taking these medications Details ondansetron ODT (ZOFRAN-ODT) 4 mg disintegrating tablet Dissolve 1 tablet (4 mg total) in the mouth every 6 (six) hours as needed for nausea or vomiting for up to 10 days., Starting 05/13/2022, Until Sat05/23/2022 at 2359, Normal Francesco Birmingham Sarah, D.O. 05/13/22 1110 documented in this encounter Plan of Treatment Not on filedocumented as of this encounter Visit Diagnoses Diagnosis Nausea And Vomiting - Primary documented in this encounter Administered Medications Inactive Administered Medications - up to 3 most recent administrations Medication Order MAR Action Action Date Dose Rate Site NaCl 0.9 % bolus 1,000 mL New Bag 05/13/2022 9:53 AM CDT 1,000 mL 1000 mL/hr 1,000 mL, intravenous, at 1,000 mL/hr, Administer over 1 Hours, Once, On 05/13/22 at 0946, For 1 dose ondansetron (PF) injection 4 mg (ZOFRAN) Given 05/13/2022 9:57 AM CDT 4 mg 4 mg, intravenous, Once, On 05/13/22 at 0946, For 1 dose sodium chloride 0.9 % injection 2-10 mL 2-10 mL, intravenous, As needed, line care, Starting o n 05/13/22 at 0945 documented in this encounter Active and Recently Administered Medications Times are shown in CDT. Scheduled Medication Order 05/11/2022 05/12/2022 05/13/2022 NaCl 0.9 % bolus 1,000 mL (COMPLETED) 0953 (New Bag - Provider: Carrie Gibson R.N.)1049 (Stopped - Provider: Carrie Gibson R.N.) 1,000 mL, intravenous, at 1,000 mL/hr, A dminister over 1 Hours, Once, On 05/13/22 at 0946, For 1 dose ondansetron (PF) injection 4 mg (ZOFRAN) (COMPLETED) 956 (Given - Provider: Carrie Gibson R.N.) 4 mg, intravenous, Once, On 05/13/22 at 0946, For 1 dose PRN Medication Order 05/11/2022 05/12/2022 05/13/2022 sodium chloride 0.9 % injection 2-10 mL(Linked Group 1) 2-10 mL, intravenous, As needed, line care, Starting on Sun 05/13 at 0945 Linked Groups Order Group 1: Place peripheral IV: No upper extremity site restrictions (CANCELED) Upper extremity site restriction: No upp er extremity site restrictions
Quantity of PIVs requested: One
STAT, Once, On 05/13/22 at 0946, For 1 occurrence And sodium chloride 0.9 % injection 2-10 mLJump to med 2-10 mL, intravenous, As needed, line ca re, Starting on 05/13/22 at 0945 documented in this encounter Care Teams Dance Director Relationship Specialty Start Date End Date Elsewhere, Pcp PCP - General Internal Medicine 05/13/22 documented as of this encounter
--- OUTSIDE RECORDS SUMMARY | 2022-07-13 07:49 | XMS_ITS | Encounter Summary ---
:1985 Author [facility] Address [address] [place] [address] Care Team Providers Name Role Phone Unassigned, Provider Primary Care Provider Unavailable Reason for Referral Therapies (Routine) - Closed Specialty Diagnoses / Procedures Referred By Contact Refer red To Contact Diagnoses Chronic pain of left knee S/P ACL reconstruction Angela Spring MD [address] [place] [address] Referral ID Status Reason Start Date Expiration Date Visits Requ ested Visits Authorized [id number] Closed 02/16/2019 04/17/2019 1 1 Scheduling Instructions Your provider has recommended an appoint ment with [facility]. You may call [phone] to schedule your appoi ntment. If you do not schedule an appointment within the next 1 to 3 business days, we will call you to help arrange your appointment. We suggest you call your [employer] insurance company about your coverage and benefits for this appointment. Procedure/Equipment (Routine) - Incomplete Specialty Diagnoses / Procedures Referred By Contact Refer red To Contact Diagnoses Chronic pain of left knee Angela Spring MD Procedures XR Leg Length [address] [place] [address] Referral ID Status Reason Start Date Expiration Date Visits V isits Requested Authorized [id number] Incomplete 02/16/2019 05/17/2020 1 1 Reason for Visit Reason Comments CONSULT left knee pain Encounter Details Date Type Department Care Team Description 02/16/2019 [facility] Angela Spring ain of left knee (Primary Dx); [facility] MD Geovanna S/P ACL reconstruction [address] [place] [address] [place] [phone] Social History Tobacco Use Types Packs/Day Years [...] Mass Index 43.79 02/16/2019 8:03 AM CDT documented in this encounter Patient Instructions Patient InstructionsCherrie Loaiza - 02/16/2019 8:00 AM CDT Thank you for coming to your health care visit at [facility] today. Please read the contents below for important information regarding today's appointment. Dr. Angela Spring MD Sports Medicine & Orthopaedic Surgery Medication Requests: Prescriptions are not filled on weekends or on weekdays after 3:00 PM. For all medication refills: Request a refill using MyChart or contact your pharmacy. Nurse Line: Please contact the Nurse Triage Line for all medical requests and questions at [phone]. Imaging Hr Clerk [facility]: [phone] Health [facility]: [phone] Paperwork Requests/ Questions Regarding Surgery Scheduling: Bit Tripoler: Clau [place] [employer] [address] [place], [place] [address] (P) [phone] (F) Navigator: Cherrie Arango ATC Diagnosis: Diagnosis and Associated Orders ICD-10-CM 1. Chronic pain of left knee M25.562 XR Leg Length G89.29 Injection Today: No Plan: - At this point it is reasonable to move forward with the MRI scheduled with [facility], this will give her a better idea of if her meniscus healed correctly - Her pain could be attributed to the lack of physical therapy she had; it is encouraged that she begin physical therapy to help with strength and pain management - Recommended pausing her boxing classes full weight bearing; using a stability ball for seated boxing is okay to perform - If doing pivoting activities, using her functional ACL brace is encouraged Follow-Up: 8 weeks documented in this encounter Progress Notes Angela Spring MD - 02/16/2019 8:00 AM CDT Images from the original note were not included. ORTHOPAEDIC CONSULT NOTE DATE OF SERVICE: 02/16/2019 REFERRING: PATIENT SELF REFERRAL (Sister Marian Saul) CHIEF COMPLAINT: Left knee pain HISTORY OF PRESENT ILLNESS Ileana Diehl is a 33 y.o. 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 In November 2017 she was picking up a toy for child off the floor and went into a crouched down positing when her foot slipped, she had immediate pain in her knee and had to be carried out to her truck to go to the hospital. The patient underwent knee surgery in December 2017 for a left ACL reconstruction (hamstring autograft) as well as lateral mensicus repair. She reports that thepain she experienced before surgery never went away throughout her recovery. She now reports clicking and sensations of being hung up on something when she is active. She wentto physical therapy for 3-4 months after surgery and reports that she did not see any benefit from it. She states she felt like they only wanted to get her back to full range of motion and once that was achieved she was discharged. She did not do any significant strengthening with PT. She was also more recently being treated with steroid and gel injections. Her last viscosupplementation injection wasin June 2018. She did not get any relief from this. Today, the patient rates the pain as a 8/10 in severity. The pain is located in the anterolateral knee and she states that it radiates down the anterolateral lower leg. She is now also having pain in the posterior ankle that is making it difficult for her to walk. The pain is described as constant ache. The patient has tried injections and physical therapy for their problem. Nothing makes the pain better, going up and down stairs makes the pain worse. She denies taking any medication for her pain. She does not feel like she has any significant instability, locking, or catching in the knee. She doeshave swelling and states that every time she attempts to attend her exercise classes (boxing) her knee swells up and remains stiff for at least a day afterwards. The patient is hoping to get back to boxing and weight lifting pain free. She also has aspirations to run. The patient was recently seen by [facility] who referred her for a new MRI scheduled this afternoon, andwho told her she should have a surgery to clean up the cartilage behind her kneecap. She is here for a second opinion. Previous Injection: Yes, 2017; Gel One Previous Physical Therapy: Yes, December 2017 Blood Clotting Issues: no History of Anesthesia Issues: no MEDICAL HISTORY I reviewed PAST MEDICAL & SURGICAL HISTORY, PROBLEM LIST, SOCIAL HISTORY and FAMILY HISTORY in [facility] today. Past Medical History: Diagnosis Date ??? Back pain 07/01/14 ??? Depression ([facility]) ??? Lateral meniscal tear 04/16/11 ??? Pap smear abnormality of cervix last week There is no problem list on file for this patient. Current Outpatient Medications Medication Sig Note Dispense Refill ??? fluconazole (DIFLUCAN) 150 MG tablet Take 1 Tab by mouth once as needed (May repeat in 3-5 days,if symptoms persist.) for up to 1 dose. (Patient not taking: Reported on 11/09/2016) 2 Tab 0 ??? Norgestimate-Eth Estradiol (SPRINTEC 28) 0.25-35 MG-MCG tablet TK 1 T PO QD 11/09/2016: [facility]from: [facility] No current facility-administered medications for this visit. Allergies Allergen Reactions ??? Penicillins Rash ??? Sulfa Antibiotics Rash Family History Problem Relation Age of Onset ??? Heart Disease Mother ??? Cancer, Breast Mother 55 ??? Multiple Sclerosis Mother ??? Diabetes Father ??? Heart Disease Father ??? High Cholesterol Father Social History Occupational History ??? Occupation: sr. pricing analyst Tobacco Use ??? Smoking status: Never Smoker Substance and Sexual Activity ??? Alcohol use: Yes Comment: Socially ??? Drug use: No ??? Sexual activity: Yes Partners: Male control/protection: OCP Review of Systems: GENERAL: No Pertinent Findings EYES: No Pertinent Findings ENT: No Pertinent Findings RESPIRATORY: No Pertinent Findings CARDIOVASCULAR: No Pertinent Findings GASTROINTESTINAL: No Pertinent Findings GENITOURINARY: No Pertinent Findings MUSCULOSKELETAL: No Pertinent Findings SKIN: No Pertinent Findings NEURO: No Pertinent Findings PSYCH: No Pertinent Findings HEME: No Pertinent Findings ENDOCRINE: No Pertinent Findings ID: No Pertinent Findings HARDWARE: None PHYSICAL EXAMINATION GENERAL: The patient is pleasant [...] rash. MUSCULOSKELETAL: LEFT KNEE Side: left Gait: Antalgic Quadriceps Atrophy: mild Tenderness: Lateral joint line, medial joint line, achilles tendon ROM affected (contralateral): -1-135 (-1-135) Effusion: none Single leg squat: shallow and shaky on the left Standing hamstring angle: 85 left (110 right) Meniscus Exam: Medial Meniscus: positive Medial joint line tenderness negative Layne test (anterior knee pain only) negative Thessaly test negative Squat test (anterior knee pain only) Lateral Meniscus: positive Lateral joint line tenderness negative Layne test (anterior knee pain only) positive Thessaly test negative Squat test (anterior knee pain only) Ligament Exam: Rachel MCL PCL LCL Affected 1A Normal Normal Normal Unaffected 1A Normal Normal Normal Left Ankle Exam: TTP over distal achilles tendon Pain with passive dorsiflexion at end range Dorsiflexion with knee extended: Neutral on left; +10 on right Dorsiflexion with knee flexed: +10 on left; +15 on right Distally the patient's neurovascular status is normal with sensation intact to light touch superficial peroneal, deep peroneal, sural, saphenous, and tibial nerve distributions. Motor grossly intact EHL, Tibialis anterior, gastroc-soleus complex Limb is well perfused with palpable pulses and brisk capillary refill <2 seconds IMAGING: Multiple views of the left knee dated 02/09/19 were available for my independent interpretation in our PACS system and demonstrate evidence of prior ACL reconstruction with suture button fixation on both tibia and femur. No apparent tunnel dilation. No significant degenerative changes throughout knee. XR Leg length dated 02/16/2019 reveals L>R genu varum (6 degrees left, 4 degrees right) MRI left knee dated 07/09/18 reveals intact ACL reconstruction with no disruption of graft. Posteriorhorn lateral meniscus oblique undersurface tear. Generalized thinning of lateral tibiofemoral cartilage without full thickness defect. 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 ASSESSMENT & PLAN Ileana Diehl is a 33 y.o. old female with continued left knee pain s/p left ACL reconstruction with lateral meniscus repair [facility] 11/[facility]/2017 I reviewed the imaging findings with the patient and discussed the natural history of the problem, including operative and non-operative treatment options. I discussed with Ileana that she has evidence of significant under-rehabilitation of her operative knee, with continued quadriceps and hamstring weakness evident on her exam today. In the presence of significant weakness with known patellofemoral chondromalacia, continued deep anterior knee pain and swelling with her aggressive exercise classes is not surprising. I have recommended a course of PT to focus on intensive quad and hamstring strengthening. I have advised modifying her boxing classes to sitting boxing until her strength sees significant improvement, as she is likely to have continued swelling and setbacks if she tries to push this too early. If doing pivoting activities, using her functional ACL brace is encouraged It would be reasonable to get a new MRI to evaluate for interval healing of her previously repaired lateral meniscus. She already has this scheduled at [facility] this afternoon, I will have these images pushed to take a look. I do not advise rushing into surgery at this point, as it currently appears that her most significant problem is strength-related, which can certainly get worse with another surgery. I would like to see her back in 8 weeks after a solid course of strength-focused PT to assess her symptomatic progress. She will follow up in the clinic in 8 weeks. All of her questions were answered today. She verbalized understanding of her diagnosis and was in agreement with the treatment plan. If she has any furtherquestions or concerns, she is to contact the office. This note was created using a scribe, templating, and voice recognition software (RuiYi) which may result in unintentional word substitutions. I evaluated the patient, performed the physical examination, and formulated the diagnosis and treatment plan. I reviewed the patient's chart, and appropriate radiographic and laboratory results.?? I agree with the findings and plan of care as scribed by Cherrie Loaiza ATC, whose note I reviewed, edited, and amended. Angela Spring MD documented in this encounter Plan of Treatment Scheduled Referrals Name Type Priority Associated Diagnoses Order S [facility] Physical Therapy Referral Routine Chronic pain of left knee Ordered: 02/16/2019 S/P ACL reconstruction documented as of this encounter Results XR Leg Length (02/16/2019 8:37 AM CDT) Anatomical Region Laterality Modality Lower Extremity, Pelvis, Hip, Thigh, Knee, Leg, Ankle Digital Radiography Specimen (Source) Anatomical Collection Method Collection Time Re ceived Time Location / / Volume Laterality 02/16/2019 8:37 AM CDT Narrative 02/16/2019 12:45 PM CDT EXAM: XR LEG LENGTH LOCATION: [facility] DATE/TIME: 02/16/2019 8:37 AM INDICATION: Pain s/p L ACLR. COMPARISON: None. FINDINGS: Leg length measured from the t op of the femoral head to the tibial plafond is 93.1 cm on the right, 92.8 cm on the left. Postoperative changes of an ACL repair in the left knee. There are mode rate degenerative changes in the medial compartments of both knees. Procedure Note Andres Valles MD - 02/16/2019Form atting of this note might be different from the original. EXAM: XR LEG LENGTH LOCATION: [facility] DATE/TIME: 02/16/2019 8:37 AM INDICATION: Pain s/p L ACLR. COMPARISON: None. FINDINGS: Leg length measured from the t op of the femoral head to the tibial plafond is 93.1 cm on the right, 92.8 cm on the left. Postoperative changes of an ACL repair in the left knee. There are moderate degenerative changes in the medial compartments of jabari th knees. Angela Spring MD RAD GD documented in this encounter Visit Diagnoses Diagnosis Chronic pain of left knee - Primary Pain in joint, lower leg S/P ACL reconstruction Other postprocedural status Chronic pain of left knee Pain in joint, lower leg documented in this encounter Care Teams Service Attendant Relationship Specialty Start Date End Date Unassigned, Provider PCP - General 01/11/[address] [place] [id number] documented as of this encounter
--- OUTSIDE RECORDS SUMMARY | 2022-07-13 07:49 | XMS_ITS | Encounter Summary ---
:1985 Author Organization [facility] Address [address], [place] [address] Care Team Providers Name Role Phone Unassigned, Provider Primary Care Provider Unavailable Reason for Visit Reason Comments CONSULT Cervical polyp Encounter Details Date Type Department Care Team Description 11/09/2016 [facility] Mariaelena Cope, Cerv ical polyp Obstetrics/Gynecolog (Primary Dx) y [address] [facility] [place] [address] [place] [address] [place], [place] [phone] [address] Social History Tobacco Use Types Packs/Day Years [...] Comments Blood Pressure 130/86 11/09/2016 1:54 PM BALING MACHINE TENDER Pulse 115 11/09/2016 1:54 PM BALING MACHINE TENDER Temperature - - Respiratory Rate - - Oxygen Saturation - - Inhaled Oxygen Concentration - - Weight 110.2 kg (243 lb) 11/09/2016 1:54 PM BALING MACHINE TENDER Height 165.1 cm (5' 5) 11/09/2016 1:54 PM BALING MACHINE TENDER Body Mass Index 40.44 11/09/2016 1:54 PM BALING MACHINE TENDER documented in this encounter Progress Notes Mariaelena Cope MD - 11/09/2016 2:29 PM CST CC: Chief Complaint Patient presents with ??? CONSULT Cervical polyp HPI: 31 y.o. female, Patient was sent here from primary care for evaluation of cervical polyp. Has had irregular bleedingfor 3 weeks and this was noted on exam. No previous abnormal paps. Past Medical History Diagnosis Date ??? Pap smear abnormality of cervix last week ??? Depression (HRC) ??? Back pain 07/01/14 ??? Lateral meniscal tear 04/16/11 Past Surgical History Procedure Laterality Date ??? Hx appendectomy family history includes Cancer, Breast (age of onset: 55) in her mother; Diabetes in her birthfather; Heart Disease in her father and mother; High Cholesterol in her father; Multiple Sclerosis in her mother. Outpatient Prescriptions Prior to Visit Medication Sig Dispense Refill ??? fluconazole (DIFLUCAN) 150 MG tablet Take 1 Tab by mouth once as needed (May repeat in 3-5 days,if symptoms persist.) for up to 1 dose. (Patient not taking: Reported on 11/09/2016) 2 Tab 0 No facility-administered medications prior to visit. Allergies Allergen Reactions ??? Penicillins Rash ??? Sulfa Antibiotics Rash Social History Substance Use Topics ??? Smoking status: Never Smoker ??? Smokeless tobacco: None ??? Alcohol Use: Yes Comment: Socially BP 130/86 mmHg Pulse 115 Ht 5' 5 (1.651 m) Wt 243 lb (110.224 kg) BMI 40.44 kg/m2 LMP (LMP Unknown) Gen.: Alert, cooperative in no acute distress. Pelvic: Bimanual exam: normal sized uterus, non tender, mobile. BUS normal. Introitus normal. Normalappearing vaginal epithelium, Normal cervix with 2 cm polyp inside os. Cervix is prepped with betadine. Ring forcep is used to grasp polyp. It is twisted easily off pedicle. Some mild bleeding, made hemostatic with silver nitrate Assessment/Plan: ICD-10-CM 1. Cervical polyp N84.1 Biopsy Cervix, 1 or more, or Excision of Lesion [90912] Clinic Obtained Tissue [TIS] Patient tolerated well. Will let her know results next week. Advised to report excessive bleeding, signs of infection. Mariaelena Cope MD NG MACHINE TENDER documented in this encounter Plan of Treatment Not on filedocumented as of this encounter Procedures Procedure Name Priority Date/Time Associated Comments Diagnosis CLINIC OBTAINED Routine 11/09/2016 2:47 PM Cervical polyp Resu lts for this ANATOMICAL PATHOLOGY BALING MACHINE TENDER procedu re are in the results section. SURGICAL PATH, PARK Routine 11/09/2016 2:47 PM Re sults for this NICOLLET BALING MACHINE TENDER procedure are i n the results section. documented in this encounter Results Pathology Report (11/09/2016 2:47 PM BALING MACHINE TENDER) Specimen (Source) Anatomical Collection Method Collection Time Re ceived Time Location / / Volume Laterality 11/09/2016 2:47 PM BALING MACHINE TENDER Narrative PN SOFT - 11/12/2016 6:32 PM BALING MACHINE TENDER FINAL SURGICAL PATHOLOGY REPORT Pathology #: [id number] ? Date Obtained: 11/09/2016 ?Date Received: 11/09/2016 DIAGNOSIS: Cervix, polypectomy: - Endocervical polyp, with mild chronic inflammation. ?LUIS JACKSON MD ? (electronic signature) ? 11/12/2016 ??18:22 CLINICAL NOTES: Cervical polyp ORGAN/TISSUE SITE: Cervical polyp GROSS DESCRIPTION: The specimen consists of a fleshy martinez p olypoid nodule 1.5 x 1.0 x 0.6 cm, which is entirely submitted in 1048 1 A1. ? JSM MICROSCOPIC DESCRIPTION: Microscopic examination performed Performed at [place] [address] [place] [address] Mariaelena Cope MD LAB_1 Performing Organization Address City/[facility]/ZIP Code Phon e Number PN SOFT [address] [place] [address] Clinic Obtained Tissue [TIS] (11/09/2016 2:47 PM BALING MACHINE TENDER) athologist Signature CLINIC Received PN SOFT OBTAINED TISSUE Specimen Anatomical Collection Method Collection Time Receive d Time (Source) Location / / Volume Laterality 11/09/2016 2:47 PM 6 4:36 BALING MACHINE TENDER PM BALING MACHINE TENDER Narrative PN SOFT - 11/09/2016 6:14 PM BALING MACHINE TENDER Performed at [address] [address] CLIA number [id number] Mariaelena Cope MD LAB_1 Performing Organization Address City/[facility]/ZIP [facility] SOFT [address] [place] [address] documented in this encounter Visit Diagnoses Diagnosis Cervical polyp - Primary Mucous polyp of cervix documented in this encounter Care Teams Rehabilitation Specialist Relationship Specialty Start Date End Date Unassigned, Provider PCP - General 01/11/08 [address] [place] [address] documented as of this encounter
--- OUTSIDE RECORDS SUMMARY | 2022-07-13 07:49 | XMS_ITS | Clinical Summary ---
:1985 Author Organization [facility] Address [address] [place] [address] Care Team Providers Name Role Phone Elsewhere, Pcp Primary Care Provider Unavailable Source Comments Patient records contain information from all sites at [facility]. For routine questions regarding patient records, call [phone] during business hours, M-F 8:00 AM - 5:00 PM Central Time. Record requests for emergency care only can be directed to [phone] at any time.[facility] Allergies Active Allergy Reactions Severity Noted Date Comments Penicillins Rash Low 01/11/2008 Sulfa (Sulfonamide Antibiotics) Rash 8 Medications Medication Sig Dispensed Refills Start Date End Date Status prenat.vits,umair,min-iron- Take by mouth. 0 Active folic tablet sertraline (ZOLOFT) 100 Take 100 mg by 0 Active mg tablet mouth daily. ondansetron ODT 0 05/23/2022 Act yahaira (ZOFRAN-ODT) 4 mg disintegrating tablet Active Problems Estimated Date of Delivery Comments Yes 12/27/2022 No known active problems Encounters Date Type Specialty Care Team Description 05/26/2022 Office Visit Express or Urgent Ayad Rico Tendern [facility] Abdominal Care Kasia, Ph.D. Generalized (Pr imary Dx) 05/13/2022 Emergency Emergency Medicine Lida Gillespie D.O. Naus ea And Vomiting (Primary Dx) from Last 3 Months Social History Tobacco Use Types Packs/Day Years Used Date Smoking Tobacco: Never Smokeless Tobacco: Never Estimated Date of Delivery Comments Yes 12/27/2022 Sex Assigned at Date Recorded Not on [...] 15.8 oz) 05/26/2022 9:21 AM CDT Height 165.1 cm (5' 5) 05/13/2022 9:39 AM CDT Body Mass Index 46.59 05/13/2022 9:39 AM CDT Plan of Treatment Health Maintenance Due Date Last Done Comments Cervical Cancer Screening 1985 HIV Screening 1985 Hepatitis B Vaccines (1 of 1985 3 - 3-dose series) Hepatitis C Screening 1985 COVID-19 Vaccine (3 - 08/26/2021 03/26/2021, 03/05/2021 Booster for Pfizer series) Depression Screening 11/25/2021 (Annual PHQ-2) Influenza Vaccine (#1) 2022 09/08/2021, 08/23/2020, 08/12/2019, Additional history exists DTaP,Tdap,and Td Vaccines 09/20/2030 09/20/2020, 11/04/2017 , (4 - Td or Tdap) 10/22/2007 Pneumococcal vaccine (0-64 Aged Out No lo nger eligible years) based on patient 's age to complete this topic Insurance Payer Benefit Plan / Subscriber ID Effective Phone Address T ype Group Dates [facility] [id number] 2021-Pre [phone] [address] PPO OPEN ACCESS sent [address] [place] [address] Care Teams Fitting Room Checker Relationship Specialty Start Date End Date Elsewhere, Pcp PCP - General Internal Medicine 05/13/22
--- OUTSIDE RECORDS SUMMARY | 2022-07-13 07:49 | XMS_ITS | Encounter Summary ---
:1985 Author Organization [facility] Address [address] [place] [address] Care Team Providers Name Role Phone Unassigned, Provider Primary Care Provider Unavailable Reason for Visit Reason Onset Date Comments ERRONEOUS ENTRY 01/14/2008 Encounter Details Date Type Department Care Team Description 01/14/2008 [facility] won Unassigned, Provider ERRONEOUS ENTRY [address] [place] [address] [place] [address] Social History Tobacco Use Types Packs/Day Years Used Date Smoking Tobacco: Never Assessed Sex Assigned at Date Recorded Not on file documented as of this encounter Plan of Treatment Not on filedocumented as of this encounter Visit Diagnoses Not on filedocumented in this encounter Care Teams Loss Control Technician Relationship Specialty Start Date End Date Unassigned, Provider PCP - General 01/11/08 [address] [place] [address] documented as of this encounter
--- OUTSIDE RECORDS SUMMARY | 2022-07-13 07:49 | XMS_ITS | Encounter Summary ---
:1985 [facility] Address [address], [place] [address] Care Team Providers Name Role Phone Unassigned, Provider Primary Care Provider Unavailable Reason for Visit Procedure/Equipment (Routine) - Incomplete Specialty Diagnoses / Procedures Referred By Contact Refer red To Contact Procedures Provider, Foreign Images Foreign Image(S) MR Knee Lt [address] [place] [address] Referral ID Status Reason Start Date Expiration Date Visits V isits Requested Authorized [id number] Incomplete 02/19/2019 05/20/2020 1 1 Encounter Details Date Type Department Care Team Description 02/16/2019 Ancillary Procedure [facility] Radiology PACS Provider, [address] [address] [address] [place] [address] Social History Tobacco Use Types Packs/Day Years [...] Diagnosis Comme nts FOREIGN IMAGE(S) MR Routine 02/16/2019 2:20 PM Re sults for this KNEE LT CDT procedure are i n the results section. documented in this encounter Results Foreign Image(S) MR Knee Lt (02/16/2019 2:20 PM CDT) Specimen (Source) Anatomical Location Collection Method / Collectio n Time Received Time / Laterality Volume Narrative PN POCT - 02/19/2019 2:18 PM CDT These outside images have been uploaded into PACS. If the results were provided, they will be located in the pa kd's chart under the Media or Imaging tab. Foreign Images Provider RAD NON-REPORTABLES Performing Organization Address City/State/ZIP Code Phon e Number POCT PN POCT documented in this encounter Visit Diagnoses Not on filedocumented in this encounter Care Teams Hematology Supervisor Relationship Specialty Start Date End Date Unassigned, Provider PCP - General 01/11/[address] [place] [address] documented as of this encounter
--- OUTSIDE RECORDS SUMMARY | 2022-07-13 07:49 | XMS_ITS | Encounter Summary ---
:1985 Author [facility] Address [address] [address] Care Team Providers Name Role Phone Unassigned, Provider Primary Care Provider Unavailable Reason for Visit Procedure/Equipment (Routine) - Incomplete Specialty Diagnoses / Procedures Referred By Contact Refer red To Contact Procedures Provider, Foreign Images Foreign Image(S) XR knee Lt [address] [place] [address] Referral ID Status Reason Start Date Expiration Date Visits V isits Requested Authorized [id number] Incomplete 02/16/2019 05/17/2020 1 1 Encounter Details Date Type Department Care Team Description 06/12/2018 Ancillary Procedure [facility] Radiology PACS Provider, [address] [address] [address] [place] [address] Social History Tobacco Use Types Packs/Day Years [...] Diagnosis Comme nts FOREIGN IMAGE(S) XR Routine 06/12/2018 12:00 AM R esults for this KNEE LT CDT procedure are i n the results section. documented in this encounter Results Foreign Image(S) XR knee Lt (06/12/2018 12:00 AM CDT) Specimen (Source) Anatomical Location [...] on filedocumented in this encounter Care Teams Forest Logistics Manager Relationship Specialty Start Date End Date Unassigned, Provider PCP - General 01/11/[address] [place] [address] documented as of this encounter
--- OUTSIDE RECORDS SUMMARY | 2022-07-13 07:49 | XMS_ITS | Encounter Summary ---
:1985 Author Organization [facility] Address [address] [place] [address] Care Team Providers Name Role Phone Unassigned, Provider Primary Care Provider Unavailable Reason for Visit Reason Comments Knee Problem Encounter Details Date Type Department Care Team Description 03/02/2019 Office Visit [facility] Rose Leger, PT Chronic pain of left knee (Primary Dx); Center, Physical [address] Decre ased strength; Therapy W Muscle tightness [address] [place], [place]. [address] [place], [place] [address] [phone] Social History Tobacco Use Types Packs/Day Years [...] encounter Progress Notes Rose Leger, PT - 03/02/2019 9:00 AM CDT [facility] Physical Therapy Daily Note Visit Number: 2 Medica ?? Initial Certification Period: 02/23/2019 to [...] pain and workout without pain SUBJECTIVE: Pain: /10 Functional Status: Increased pain with working out Patient Report: Pt reports that she is about the same, has been doing the exercises, is the most sore after the knee extension isometric. Taping was not that helpful. OBJECTIVE: Today???s Findings: Observation/Gait: Slight antalgic gait after sitting Edema: Circumference: left knee: 6 cm above patella, 62 cm Right knee: 6 cm above patella, 58.5 cm ROM (jqquedbhw-gmo-trag): 0-135 Flexibility: Tight quad, adductor, ITB and hamstring on left Strength: Quad set: painful, seated knee extension 5/5 with pain in patellar tendon Glut med and max 4/5 on left, 5/5 on right SLR x 10 with fatigue, but no knee pain Palpation: Very tender left patellar tendon, medial fat pad, adductor, quad and distal ITB Proprioception: Single leg stance: hip drop and knee discomfort Functional Tests: Double leg squat: painful but able to perform with decent form TREATMENT TODAY: Therapeutic Exercise (CPT 13535) x 25 minutes: Access Code: [email or web address] Reviewed/demo'd: Seated Isometric Knee Extension - 5 reps - 45 sec hold-changed to 20 sec hold Added: SLR 3 x 10 Reviewed HEP: Side Plank on Knees - 2 reps - 15 sec hold Quadriceps Mobilization with Foam Roll Adductor Mobilization with Foam Roll Trial of Blood flow restriction (BFR) training was used in conjunction with strengthening/endurance exercise to promote strength, muscle hypertrophy, and tissue healing. Patient was instructed in the benefits as well as potential side effects of this modality. Patient verbalized understanding and consent for this treatment. 70% occlusion in L LE extremity. Exercise: quad sets Reps: 30, 15, 15, 15 Time: 4 min of occlusion time Patient response: Patient tolerates treatment well. Neuromuscular re-education x 10 min Bridges x 20-tried bridge with march-too much hamstring cramping Clamshells 3 x 10-cues for correct technique Timed Code Treatment Minutes: 35 Total Treatment Minutes: 35 ASSESSMENT: 45 sec hold with isometrics too demanding on the patellar tendon, decreased to 20 sec without increase in pain. Trial of BFR training today, able to do a quad set painfree with BFR and pt reporting feeling stronger and more stable after the BFR. Very weak gluts, unable to do bridge with marching secondary to hamstring cramping. PLAN: Start BFR training in PT, start patient on bike next session. EXPECTED FUNCTIONAL OUTCOMES/GOALS: HEP/Independent Management: Demonstrate independence [...] pain in 8-10 weeks Therapist: MAITE Dumont 8:50 AM 03/02/2019 documented in this encounter Plan of Treatment Not on filedocumented as of this encounter Visit Diagnoses Diagnosis Chronic pain of left knee - Primary Pain in joint, lower leg Decreased strength Muscle weakness (generalized) Muscle tightness Unspecified disorder of muscle, ligament , and fascia documented in this encounter Care Teams Dental Treatment Coordinator Relationship Specialty Start Date End Date Unassigned, Provider PCP - General 01/11/[address] [place] [address] documented as of this encounter
--- OUTSIDE RECORDS SUMMARY | 2022-07-13 07:49 | XMS_ITS | Encounter Summary ---
:1985 Author Organization [facility] Address [address] [facility] [place] [address] Care Team Providers Name Role Phone Unassigned, Provider Primary Care Provider Unavailable Reason for Visit Procedure/Equipment (Routine) - Incomplete Specialty Diagnoses / Procedures Referred By Contact Refer red To Contact Diagnoses Chronic pain of left knee Angela Spring MD Procedures XR Leg Length [address] [place] [address] Referral ID Status Reason Start Date Expiration Date Visits V isits Requested Authorized [id number] Incomplete 02/16/2019 05/17/2020 1 1 Encounter Details Date Type Department Care Team Description 02/16/2019 Ancillary Procedure ELLIS Herrera Saw, Chronic pain of left Radiology Angela Austin MD knee [address] [place] [address] [place] [phone] Social History Tobacco Use Types Packs/Day Years [...] Priority Date/Time Associated Diagnosis Comme nts XR LEG LENGTH Routine 02/16/2019 8:37 AM Chronic pain of left Results for this CDT knee procedure are i n the results section . documented in this encounter Results XR Leg Length (02/16/2019 8:37 AM CDT) Anatomical Region Laterality Modality Lower Extremity, Pelvis, Hip, Thigh, Knee, Leg, Ankle Digital Radiography Specimen (Source) Anatomical Collection Method Collection Time Re ceived Time Location / / Volume Laterality 02/16/2019 8:37 AM CDT Narrative 02/16/2019 12:45 PM CDT EXAM: XR LEG LENGTH LOCATION: [facility] DATE/TIME: 02/16/2019 8:37 AM INDICATION: Pain s/p [...] the original. EXAM: XR LEG LENGTH LOCATION: [facility] DATE/TIME: 02/16/2019 8:37 AM INDICATION: Pain s/p [...] Diagnoses Diagnosis Chronic pain of left knee Pain in joint, lower leg documented in this encounter Care Teams Fire Alarm Inspector Relationship Specialty Start Date End Date Unassigned, Provider PCP - General 01/11/[address] [place] [phone] documented as of this encounter
--- NOTE | 2022-07-13 07:55 | PC.NURSE ---
pt having moderate amount of bleeding, pad changed
--- NOTE | 2022-07-13 08:20 | PC.NURSE ---
pt to OR via cart at this time, to waiting area in surgery
[2022-07-13] MEDS: LACTATED RINGERS 1000 ML 1,000 ML 100 ML IV (08:28)
[2022-07-13] MEDS: DOXYCYCLINE HYCLATE 100 MG in 0.9 % SODIUM CHLORIDE Mini-bag 100 ML IVPB (08:48)
--- NOTE | 2022-07-13 09:20 | P.ANES_ITS ---
Anesthesia Charges Start Date/Time Anesthesia Start Date: 07/13/22 Anesthesia Start Time: 08:28 Stop Date/Time Anesthesia Stop Date: 07/13/22 Anesthesia Stop Time: 09:18 Summary Emergency: No
--- NOTE | 2022-07-13 09:47 | SUR.PHASEII ---
pt checked for bleeding. after initial check, new pad, no or only minimal new bleeding. no clots
--- NOTE | 2022-07-13 10:13 | P.PCN_ITS ---
Procedure Note Time Seen by Provider: 07:45 Date Seen: 07/13/22 Will [facility] bill your pro fee for this procedure?: Yes Procedure: Preoperative diagnosis: Ileana is a 36-year-old 2 para 1011 who was diagnosed with a missed A/B on 07/11/2022 measuring 12 weeks 6 days by ultrasound, 15 weeks 5 days by dates. * Pass the fetus at home at 5:30 a.m. * Continued heavy bleeding, incomplete ab Postoperative diagnosis: Same Procedure: Suction curettage Anesthesia: Conscious sedation, paracervical block Surgeon: Shayna Bustamante MD Telecommunications Professional: Not applicable IV fluid: 1000 mL Estimated blood loss: 400 mL UOP: 200ml Specimen: Uterine contents to pathology Findings: On exam under anesthesia: the uterus was approximately 13 weeks size, mid position. Cervical os was dilated with active bleeding. Adnexa were without mass or fullness palpable. The uterus sounded to 13 cm. On suction curettage there was a moderate to large amount of products of conception. Procedure: Ileana was taken to the operating room where conscious sedation was found to be adequate. She was placed in the dorsal lithotomy position and an exam under anesthesia was performed with with findings stated above. She was then prepped and draped in normal sterile manner. A bivalve speculum was placed in the vagina to visualize the cervix. A paracervical block was placed using 0.25% Marcaine: 10 mL injected at the 4 and 8 o'clock positions on the cervix. The anterior lip of the cervix was grasped with a long Allis clamp. The cervix was dilated to Hegar # did not require dilation A #12 curved curette was then advanced into the uterus without difficulty. A suction curettage was then performed using 40-50 mmHg pressure. 5 passes with the curette were performed to remove all visualized tissue. The curette was removed and mild, sharp curettage was performed to verify that all of the products of conception had been removed. One last pass with the curved curette was then made to verify that all of the tissue had been removed. The Allis clamp was removed from the ant lip of the cervix. Nothing was needed to obtain hemostasis. Excellent hemostasis was noted. The speculum was then removed from the vagina. The patient tolerated this procedure well. Sponge, lap and instrument counts were correct x2 the end of the procedure. The patient was awakened from sedation and taken to the recovery area in stable condition. The patient received 100 mg IV doxycycline prior to the procedure. 0.2 mg Methergine IM x1 during the procedure. Toradol 30 mg IV at the end of the procedure prior to being awakened from her surgery. Surgeon: Shayna Bustamante MD Pathology: other (Patient is taking the fetus to a home. Placenta (uterine contents) sent to path.)
--- NOTE | 2022-07-13 11:40 | SUR.PHASEII ---
PT PAD CHANGED UPON ARRIVAL. HAD MODERATE AMOUNT OF BLOOD ON PAD, LEGS. SHE HAD A SMALL AMOUNT OF ADDITIONAL BLEEDING WHEN SHE SAT UP, NO CLOTS. SHE WAS MILDLY LIGHTHEADED BUT THIS RESOLVED EASILY WITHOUT INTERVENTION
== END 2022-07-13 11:52 | disposition home or self-care (01) ==
LOC: ED 07:46 → SS 08:22
PROVIDERS: Emergency Provider Family Medicine; PCP Family Medicine; Visit Provider Obstetrics & Gynecology
PROC: (CPT 59812; principal; 2022-07-13 07:30)
DX: O03.1 Delayed or excessive hemorrhage following incomplete spontaneous abortion (principal); Z3A.16 16 weeks gestation of pregnancy
CPT/HCPCS: 59812; 01965; 36415; 76801; 85025; 88305; 99284; 99285; J1100; J1885; J2210; J2250; J2405; J2704; J3010; J3490; J7120

== ENCOUNTER 2023-09-30 19:57 | Outpatient (CLI) | payer BC, SELFPAY ==
--- OUTSIDE RECORDS SUMMARY | 2023-09-30 20:01 | XMS_ITS | Continuity of Care Document ---
Author Name Unknown Organization [facility] Address [address] [address] [place] [address] Phone Care Team Providers Care Maintenance Operator Name Role Phone Deedee Klein MD Unavailable Unavailable Allergies, Adverse Reactions, Alerts Substance Reaction Status Criticality Sulfa (Sulfonamide Antibiotics) Rash Active No Information Penicillins Rash Active No Information Medications Medication Instructions Dosage Effective Dates (start - stop) Status Comments nortriptyline 10 mg capsule take 1 Tablet by Oral route every bedtime 1 Tablet - Active Procedures Procedure Date Offic/outpt E&m Estab Low-mod Ugi Endo; W/bx 1/mx Level Iv-surg Path Gross/micro Offic/outpt E&m New Mod-ne Advance Directives Directive Yes / No Effective Date File Name No Information Encounters Encounter Description Practice Location Reason(s) For Visit Diagnoses Date Provider Providers Copied on Encounter [facility], [address] [address], [place], [place], [id number], [place] tel:[phone] [facility] No Information Latoya Mark. [address] [facility] [address], [place], [place], [id number], [place]. tel:[phone] Offic/outpt E&m Estab Low-mod [facility], [address] [address], [place], [place], [id number], [place] tel:[phone] [facility] GI Symptoms or Concerns (chief complaint) Epigastric painElevated blood-pressure reading, w/o diagnosis of htn No Information Referring Provider: Deedee White, [address], [place], [address] . tel:[phone] [facility] [place], [address] [address], [place], [id number], tel:[phone] [facility] Epigastric painNauseaEpig astric painNausea 7 Danuta Ochoa. [address], [place], [place], [id number], [place]. tel:[phone] Referring Provider: Referral Self. Offic/outpt E&m New Mod-hi [facility] [place], [address] [address], [facility] [place], [id number], [place] tel:[phone] [facility] GI Symptoms or Concerns (chief complaint) HeartburnEpiga stric painNauseaDiet ketty counseling and surveillanceEl evated blood-pressure reading, w/o diagnosis of htn Latoya Mark. [address] [facility] [address], [place], [place], [id number], [place]. tel:[phone] Referring Provider: Referral Self. Family History Family Member Type Diagnosis Age At Onset Sister Problem (finding) multiple sclerosis Sister Problem (finding) asthma Father Problem (finding) Maternal history of bubba betes mellitus Mother Problem (finding) multiple sclerosis Mother Problem (finding) Irritable bowel disease Mother Problem (finding) malignant neop lasm of breast in first degree relative Father Problem (finding) Cardiovascular disease Sister Problem (finding) Thyroid disorder Mother Problem (finding) malignant neoplasm of s kin Payers Payer name Insurance type Covered democrat ID Authoriza tion(s) [employer] [id number] Social History Type Description Quantity Date Captured Comments Sex Female Smoking Status No Information Chief Complaint And Reason For Visit No Information Reason For Referral Reason For Referral No Information Plan Of Treatment Date Type Action Status Goal Lifestyle education regardin g diet completed Referral Ordered: Ultrasound Abdomen Appointment date/timeframe: 09/09/2017 ordered Referral Ordered: EGD Appointment date/timeframe: 09/05/2017 ordered History Of Present Illness Encounter Date Complaint History Of Prese nt Illness GI Symptoms or Concerns This pat iekhoi returns to the clinic in followup of her abdominal pain, heartburn, nausea with occasional vomiting.The patient had initial consultation with Dr. Deedee Klein on September 02, 2017, for these symptoms. The patient reported that the symptoms have been going on for a number of months, but were getting more severe in presentation. There seemed to be a component of heartburn, but also epigastric pain/burning. It would occur with anything she ate, even drinking water. She denied any problems with her bowel function. That continues to be the case. The patient had endoscopy. The esophagus, stomach, and small intestine appeared normal. Stomach biopsies were negative for helicobacter organisms. The patient had abdominal ultrasound yesterday. The gallbladder did not have any evidence of wall thickening or stone/sludge material. There is no biliary dilatation.The patient was recommended to start Prilosec after the endoscopy. She has been taking that for a week. It has GI Symptoms or Concerns The nhi ent is a very pleasant 32-year-old woman who presents with new symptoms of nausea and burning in the epigastric area.The patient reports that her symptoms of nausea and burning across her upper abdomen started within the last couple months and appear to be getting worse. She reports she develops nausea every time she eats and it does not really matter what she eats. She develops nausea with a burning sensation across her abdomen. It is worse right after she eats and then slowly gets better only to recur the next time she eats. She has noticed that it is significantly worse with gluten, dairy, and tomatoes. She also has symptoms of heartburn and reflux for which she takes intermittent Tums. The Tums do not really help her reflux. She has not taken any [id number]-tcciiew medicines or prescription medicines for the heartburn. The patient will have vomiting if she eats too much dairy and in her childhood, she was diagnosed with lactose intolerance. She appears to have o Functional Status Date Functional Assessmen t No Information Instructions Date Instruction Additional Infor mary Lifestyle education regarding di et Related to Dietary counseling and surveillance Assessments Type Assessment Date No Information Patient Care Teams Name Effective Dates (start - stop) Status Members No Information
[2023-09-30 22:41] LABS: NT Pro B Type NatriureticPept* < 20 pg/mL
== END 2023-09-30 19:58 | disposition home or self-care (01) ==
PROVIDERS: PCP Family Medicine; Visit Provider Nurse Practitioner Family
DX: R06.02 Shortness of breath (principal)
CPT/HCPCS: 83880